=== PATIENT | female | born 1995 | race Caucasian/White ===

== ENCOUNTER 2023-04-04 16:49 | Outpatient (OUT) | payer OTHER, SELFPAY ==
[2023-04-04 17:13] LABS: Basophils Percent Auto 0.2 % (0.2-2.0); Eosinophils Absolute Auto 0.1 10^3/uL (0.0-0.7); Eosinophils Percent Auto 1.2 % (0.9-7.0); Hematocrit 39.5 % (36.0-48.0); Hemoglobin 13.6 g/dL (12.0-16.0); Immature Granulocytes Abs Auto 0.01 10^3/uL (0.00-0.03); Immature Granulocytes Pct Auto 0.2 % (0.0-0.5); Lymphocytes Absolute Auto 1.9 10^3/uL (1.2-3.8); Lymphocytes Percent Auto 31.3 % (20.5-60.0); Mean Corpuscular HGB Conc 34.4 g/dL (29.9-35.2); Mean Corpuscular Volume 92.9 fL (81.0-99.0); Monocytes Absolute Auto 0.3 10^3/uL (0.3-0.8); Monocytes Percent Auto 5.3 % (1.7-12.0); Neutrophils Absolute Auto 3.8 10^3/uL (1.4-6.5); Neutrophils Percent Auto 61.8 % (43.0-75.0); Platelet Count 204 10^3/uL (150-450); Red Blood Count 4.25 10^6/uL (4.20-5.40); Red Cell Distribution Width 12.3 % (11.0-15.0); White Blood Count 6.1 10^3/uL (4.0-11.0)
[2023-04-04 17:34] LABS: INR 0.97; Prothrombin Time 10.3 sec (9.0-11.6)
[2023-04-04 17:41] LABS: HCG Quantitative <1 mIU/mL; Thyroid Stimulating Hormone 2.377 uIU/mL (0.358-3.740)
[2023-04-04 17:46] LABS: Estimated Average Glucose 100 mg/dL; Glycohemoglobin A1C 5.1 % (4.5-6.2)
== END 2023-04-04 16:50 | disposition home or self-care (01) ==
PROVIDERS: PCP Nurse Practitioner; Visit Provider Physician Assistant
DX: Z12.4 Encounter for screening for malignant neoplasm of cervix (principal); R10.2 Pelvic and perineal pain
CPT/HCPCS: 36415; 83036; 84439; 84443; 84702; 85025; 85610; 85730; G0145

== ENCOUNTER 2023-04-04 20:54 | Outpatient (REF) | payer OTHER, SELFPAY ==
[2023-04-09 14:09] LABS: Age Gdln ACOG Testing Note (.); IGP, rfx Aptima HPV ASCU Note (.)
== END 2023-04-04 20:55 | disposition home or self-care (01) ==
LOC: LAB 20:54
PROVIDERS: PCP Nurse Practitioner; Visit Provider Physician Assistant
DX: Z12.4 Encounter for screening for malignant neoplasm of cervix (principal)
CPT/HCPCS: G0145

== ENCOUNTER 2024-04-13 21:25 | Outpatient (REF) | payer OTHER, SELFPAY ==
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
[2024-04-17 14:10] LABS: Age Gdln ACOG Testing Note (.); IGP, rfx Aptima HPV ASCU Note (.)
== END 2024-04-13 21:26 | disposition home or self-care (01) ==
LOC: LAB 21:25
PROVIDERS: PCP Nurse Practitioner; Visit Provider Physician Assistant
DX: Z01.419 Encounter for gynecological examination (general) (routine) without abnormal findings (principal)
CPT/HCPCS: 88175

== ENCOUNTER 2024-06-03 18:37 | Emergency (ER) | payer OTHER, SELFPAY ==
--- OUTSIDE RECORDS SUMMARY | 2024-06-03 18:51 | XMS_ITS | CCD ---
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 Comment on above: Performed By: #### P REGQNT, CMP #### [facility] [address] [place] [address] Dr. Aniyah Oliveira HCG RANGE SEE BELOW Normal [facility] Comment on above: Result Comment: 5-50 0.2-1 WEEK 50-500 1-2 WEEKS 100-5,000 2-3 WEEKS 500-10,000 3-4 WEEKS 1,000-50,000 4-5 WEEKS 10,000-100,000 5-6 WEEKS 15,000-200,000 6-8 WEEKS 10,000-100,000 2-3 MONTHS Performed By: #### P REGQNT, CMP #### [facility] [address] [place] [address] Dr. Aniyah Oliveira PROF 14(COMP METB)on 022 Albumin [Mass/Vol] 4.2 g/dL Normal 3.4-5.0 [facility] Comment on above: Performed By: #### P REGQNT, CMP #### [facility] [address] [place] [address] Dr. Aniyah Oliveira Albumin/Globulin [Mass ratio] 1.3 {ratio} Normal [facility] Comment on above: Performed By: #### P REGQNT, CMP #### [facility] [address] [address] [address] Aniyah Oliveira ALP [Catalytic activity/Vol] 32 U/L Critically low 46-116 [facility] Comment on above: Performed By: #### P REGQNT, CMP #### [facility] [address] [address] [address] Aniyah Oliveira ALT [Catalytic activity/Vol] 14 U/L Normal 14-59 [facility] Comment on above: Performed By: #### P REGQNT, CMP #### [facility] [address] [place] [address] Dr. Aniyah Oliveira Anion gap [Moles/Vol] 12.9 mmol/L Normal [facility] Comment on above: Performed By: #### P REGQNT, CMP #### [facility] [address] [place] [address] Dr. Aniyah Oliveira AST [Catalytic activity/Vol] 15 U/L Normal 15-37 [facility] Comment on above: Performed By: #### P REGQNT, CMP #### [facility] [address] [place] [address] Dr. Aniyah Oliveira Bilirubin [Mass/Vol] 0.3 mg/dL Normal 0.2-1.0 [facility] Comment on above: Performed By: #### P REGQNT, CMP #### [facility] [address] [place] [address] Dr. Aniyah Oliveira Calcium [Mass/Vol] 9.2 mg/dL Normal 8.5-10.1 [facility] Comment on above: Performed By: #### P REGQNT, CMP #### [facility] [address] [place] [address] Dr. Aniyah Oliveira Chloride [Moles/Vol] 102 mmol/L Normal 98-107 [facility] Comment on above: Performed By: #### P REGQNT, CMP #### [facility] [address] [address] [address] Aniyah Oliveira CO2 [Moles/Vol] 27.6 mmol/L Normal 21.0-32.0 [facility] Comment on above: Performed By: #### P REGQNT, CMP #### [facility] [address] [address] [address] Aniyah Oliveira Creatinine [Mass/Vol] 0.73 mg/dL Normal 0.55-1.02 [facility] Comment on above: Performed By: #### P REGQNT, CMP #### [facility] [address] [address] [address] Aniyah Oliveira EGFR-AF ETHIOPIAN >60 Normal >=60 [facility] Comment on above: Performed By: #### P REGQNT, CMP #### [facility] [address] [address] [address] Aniyah Oliveira EGFR-NON AF ETHIOPIAN >60 Normal >=60 [facility] Comment on above: Performed By: #### P REGQNT, CMP #### [facility] [address] [address] [address] Aniyah Oliveira Globulin (S) [Mass/Vol] 3.2 g/dL Normal [facility] Comment on above: Performed By: #### P REGQNT, CMP #### [facility] [address] [address] [address] Aniyah Oliveira Glucose [Mass/Vol] 82 mg/dL Normal 74-106 [facility] [place] [facility] Comment on above: Performed By: #### P REGQNT, CMP #### [facility] [address] [address] [address] Aniyah Oliveira Potassium [Moles/Vol] 3.5 mmol/L Normal 3.5-5.1 [facility] Comment on above: Performed By: #### P REGQNT, CMP #### [facility] [address] [address] [address] Aniyah Oliveira Protein [Mass/Vol] 7.4 g/dL Normal 6.4-8.2 [facility] [place] [facility] Comment on above: Performed By: #### P REGQNT, CMP #### [facility] [address] [address] [address] Aniyah Oliveira Sodium [Moles/Vol] 139 mmol/L Normal 136-145 [facility] Comment on above: Performed By: #### P REGQNT, CMP #### [facility] [address] [address] [address] Aniyah Oliveira Urea nitrogen [Mass/Vol] 7.0 mg/dL Normal 7.0-18.0 [facility] Comment on above: Performed By: #### P REGQNT, CMP #### [facility] [address] [address] [address] Aniyah Oliveira Urea nitrogen/Creatinin e [Mass ratio] 9.6 mg/mg Normal [facility] Comment on above: Performed By: #### P REGQNT, CMP #### [facility] [address] [place] [address] Dr. Aniyah Oliveira COVID/FLU RT-PCRon 2 SARS-CoV-2 (COVID-19) RNA CHITO+probe Ql (Unsp spec) Negative [employer] Other COVID/FLU RT-PCR Negative [employer] [facility] [employer] Other CBC W MANUAL DIFFon 04-18-20 22 ATYPICAL LYMPH # Normal [facility] Comment on above: Performed By: #### C ARCADIO #### [facility] [address] [place] [address] Dr. Aniyah Oliveira ATYPICAL LYMPH % Normal [facility] Comment on above: Performed By: #### C PARKERMAN #### [facility] [address] [place] [address] Dr. Aniyah Oliveira BAND # 0.1 103/ul Normal 0.0-0.3 [facility] Comment on above: Performed By: #### C ARCADIO #### [facility] [address] [place] [address] Dr. Aniyah Oliveira BAND % 1 % Normal 0-5 [facility] Comment on above: Performed By: #### C ARCADIO #### [facility] [address] [address] [address] Aniyah Oliveira BASOM # 0.00 103/ul Normal 0.00-0.10 [facility] Comment on above: Performed By: #### C BCRONALD #### [facility] [address] [place] [address] Dr. Aniyah Oliveira BASOM % 0.0 % Critically low 0.2-2.0 [facility] Comment on above: Performed By: #### C BCMAN #### [facility] [address] [place] [address] Dr. Aniyah Oliveira BLAST # Normal [facility] Comment on above: Performed By: #### C ARCADIO #### [facility] [address] [place] [address] Dr. Aniyah Oliveira BLAST % Normal [facility] Comment on above: Performed By: #### C ARCADIO #### [facility] [address] [place] [address] Dr. Aniyah Oliveira CORRECTED WBC Normal 4.0-11.0 [facility] Comment on above: Performed By: #### C ARCADIO #### [facility] [address] [place] [address] Dr. Aniyah Oliveira EOS # 0.00 103/ul Normal 0.00-0.70 [facility] Comment on above: Performed By: #### C ARCADIO #### [facility] [address] [place] [address] Dr. Aniyah Oliveira EOS% 0.0 % Critically low 0.9-7.0 [facility] Comment on above: Performed By: #### C BCRONALD #### [facility] [address] [place] [address] Dr. Aniyah Oliveira HCT 39.9 % Normal 36.0-48.0 [facility] Comment on above: Performed By: #### C BCRONALD #### [facility] [address] [place] [address] Dr. Aniyah Oliveira HGB 13.7 g/dl Normal 12.0-16.0 [facility] Comment on above: Performed By: #### C ARCADIO #### [facility] [address] [address] [address] Aniyah Oliveira LYMPHM # 0.71 103/ul Critically low 1.20-3.80 [facility] Comment on above: Performed By: #### C ARCADIO #### [facility] [address] [address] [address] Aniyah Oliveira LYMPHM% 11.0 % Critically low 20.5-60.0 [facility] Comment on above: Performed By: #### C ARCADIO #### [facility] [address] [address] [address] Aniyah Oliveira MCH 31.5 pg Normal 26.7-34.0 [facility] Comment on above: Performed By: #### C ARCADIO #### [facility] [address] [place] [address] Dr. Aniyah Oliveira MCHC 34.3 g/dl Normal 29.9-35.2 [facility] Comment on above: Performed By: #### C ARCADIO #### [facility] [address] [address] [address] Aniyah Oliveira MCV 91.7 fL Normal 81.0-99.0 [facility] Comment on above: Performed By: #### C ARCADIO #### [facility] [address] [place] [address] Dr. Aniyah Oliveira METAMYELOCYTE # Normal [facility] Comment on above: Performed By: #### C ARCADIO #### [facility] [address] [address] [address] Aniyah Oliveira METAMYELOCYTE % Normal [facility] Comment on above: Performed By: #### C ARCADIO #### [facility] [address] [address] [address] Aniyah Oliveira MONOM# 0.13 103/ul Critically low 0.30-0.80 [facility] Comment on above: Performed By: #### C ARCADIO #### [facility] [address] [address] [address] Aniyah Oliveira MONOM% 2.0 % Normal 1.7-12.0 [facility] Comment on above: Performed By: #### C ARCADIO #### [facility] [address] [place] [address] Dr. Aniyah Oliveira MPV 10.5 fL Normal 9.5-13.5 [facility] Comment on above: Performed By: #### C ARCADIO #### [facility] [address] [place] [address] Dr. Aniyah Oliveira MYELOCYTE # Normal [facility] Comment on above: Performed By: #### C ARCADIO #### [facility] [address] [place] [address] Dr. Aniyah Oliveira MYELOCYTE % Normal [facility] Comment on above: Performed By: #### C ARCADIO #### [facility] [address] [place] [address] Dr. Aniyah Oliveira NRBC Normal [facility] Comment on above: Performed By: #### C ARCADIO #### [facility] [address] [place] [address] Dr. Aniyah Oliveira PLT 204 103/ul Normal 150-450 [facility] Comment on above: Performed By: #### C ARCADIO #### [facility] [address] [place] [address] Dr. Aniyah Oliveira RBC 4.35 106/ul Normal 4.20-5.40 [facility] Comment on above: Performed By: #### C ARCADIO #### [facility] [address] [place] [address] Dr. Aniyah Oliveira RDW 12.1 % Normal 11.0-15.0 [facility] Comment on above: Performed By: #### C ARCADIO #### [facility] [address] [place] [address] Dr. Aniyah Oliveira SEG # 5.59 103/ul Normal 1.40-6.50 [facility] Comment on above: Performed By: #### C BCRONALD #### [facility] [address] [place] [address] Dr. Aniyah Oliveira SEG % 86.0 % Critically high 43.0-75.0 [facility] Comment on above: Performed By: #### C BCMAN #### [facility] [address] [place], [place] [address] Dr. Aniyah Oliveira WBC 6.5 103/ul Normal 4.0-11.0 [facility] Comment on above: Performed By: #### C BCMAN #### [facility] [address] [place], [place] [address] HEAD WO CONon [...] SANDRA YOUSSEF Date: 2022-04-18 14:39 Normal [facility] SARS-CoV-2 (COVID-19) RNA CHITO+probe Ql (Unsp spec) Not detected Normal NOT DETECTED [facility] Comment on above: Result Comment: When [...] for this test is supported by the [place] of Health and Human Service's declaration that [...] used). Performed By: #### C VDTB #### [facility] [address] [place] [address] Dr. Aniyah Oliveira ER URINE PROFILEon 2 Bilirubin Ql (U) Negative Normal NEGATIVE [facility] Comment on above: Performed By: #### E RUR #### [facility] [address] [place] [address] Dr. Aniyah Oliveira Clarity (U) CLEAR Normal CLEAR [facility] Comment on above: Performed By: #### E RUR #### [facility] [address] [place] [address] Dr. Aniyah Oliveira Color (U) LT. YELLOW Normal YELLOW [facility] Comment on above: Performed By: #### E RUR #### [facility] [address] [place] [address] Dr. Aniyah GALARZA A micrscopic examination will be performed if indicated. Normal [facility] Comment on above: Performed By: #### E RUR #### [facility] [address] [place] [address] Dr. Aniyah Oliveira Glucose Ql (U) Negative Normal NEGATIVE [facility] Comment on above: Performed By: #### E RUR #### [facility] [address] [place] [address] Dr. Aniyah Oliveira Hemoglobin Ql (U) Negative Normal NEGATIVE [facility] Comment on above: Performed By: #### E RUR #### [facility] [address] [place] [address] Dr. Aniyah Oliveira Ketones Ql (U) 15 mg/dl Abnormal NEGATIVE [facility] Comment on above: Performed By: #### E RUR #### [facility] [address] [place] [address] Dr. Aniyah Oliveira LEUKOCYTES Negative Normal NEGATIVE [facility] Comment on above: Performed By: #### E RUR #### [facility] [address] [place] [address] Dr. Aniyah Oliveira Nitrite Ql (U) Negative Normal NEGATIVE [facility] Comment on above: Performed By: #### E RUR #### [facility] [address] [place] [address] Dr. Aniyah Oliveira pH (U) 6.0 [pH] Normal 5-9 [facility] Comment on above: Performed By: #### E RUR #### [facility] [address] [place] [address] Dr. Aniyah Oliveira SPEC GRAVITY 1.005 Normal 1.005-<=1.025 [facility] Comment on above: Performed By: #### E RUR #### [facility] [address] [place] [address] Dr. Aniyah Oliveira UA PROTEIN Negative Normal NEGATIVE/ TRACE [facility] Comment on above: Performed By: #### E RUR #### [facility] [address] [place] [address] Dr. Aniyah Oliveira UR MICRO IND NOT INDICATED Normal [facility] Comment on above: Performed By: #### E RUR #### [facility] [address] [place] [address] Dr. Aniyah Oliveira Urobilinogen Qn (U) 0.2 {Yovani'U}/dL Normal 0.2 - 1.0 [facility] Comment on above: Performed By: #### E RUR #### [facility] [address] [place] [address] Dr. Aniyah Oliveira PREG HCG QUALon 04-18-2022 , QUAL Negative Normal NEGATIVE [facility] Comment on above: Performed By: #### P REG #### [facility] [address] [place] [address] Dr. Aniyah Oliveira PROF 14(COMP METB)on 022 Albumin [Mass/Vol] 4.2 g/dL Normal 3.4-5.0 [facility] Comment on above: Performed By: #### C MP #### [facility] [address] [place] [address] Dr. Aniyah Oliveira Albumin/Globulin [Mass ratio] 1.3 {ratio} Normal [facility] Comment on above: Performed By: #### C MP #### [facility] [address] [address] [address] Aniyah Oliveira ALP [Catalytic activity/Vol] 35 U/L Critically low 46-116 [facility] Comment on above: Performed By: #### C MP #### [facility] [address] [address] [address] Aniyah Oliveira ALT [Catalytic activity/Vol] 18 U/L Normal 14-59 [facility] Comment on above: Performed By: #### C MP #### [facility] [address] [address] [address] Aniyah Oliveira Anion gap [Moles/Vol] 13.3 mmol/L Normal [facility] Comment on above: Performed By: #### C MP #### [facility] [address] [place] [address] Dr. Aniyah Oliveira AST [Catalytic activity/Vol] 19 U/L Normal 15-37 [facility] Comment on above: Performed By: #### C MP #### [facility] [address] [place] [address] Dr. Aniyah Oliveira Bilirubin [Mass/Vol] 0.3 mg/dL Normal 0.2-1.0 [facility] Comment on above: Performed By: #### C MP #### [facility] [address] [place] [address] Dr. Aniyah Oliveira Calcium [Mass/Vol] 9.5 mg/dL Normal 8.5-10.1 [facility] Comment on above: Performed By: #### C MP #### [facility] [address] [place] [address] Dr. Aniyah Oliveira Chloride [Moles/Vol] 106 mmol/L Normal 98-107 [facility] Comment on above: Performed By: #### C MP #### [facility] [address] [place] [address] Dr. Aniyah Oliveira CO2 [Moles/Vol] 23.6 mmol/L Normal 21.0-32.0 [facility] Comment on above: Performed By: #### C MP #### [facility] [address] [address] [address] Aniyah Olvieira Creatinine [Mass/Vol] 0.66 mg/dL Normal 0.55-1.02 [facility] Comment on above: Performed By: #### C MP #### [facility] [address] [address] [address] Aniyah Oliveira EGFR-AF ETHIOPIAN >60 Normal >=60 [facility] Comment on above: Performed By: #### C MP #### [facility] [address] [address] [address] Aniyah Oliveira EGFR-NON AF ETHIOPIAN >60 Normal >=60 [facility] Comment on above: Performed By: #### C MP #### [facility] [address] [place] [address] Dr. Aniyah Oliveira Globulin (S) [Mass/Vol] 3.2 g/dL Normal [facility] Comment on above: Performed By: #### C MP #### [facility] [address] [address] [address] Aniyah Oliveira Glucose [Mass/Vol] 99 mg/dL Normal 74-106 [facility] [place] [facility] Comment on above: Performed By: #### C MP #### [facility] [address] [place] [address] Dr. Aniyah Oliveira Potassium [Moles/Vol] 3.9 mmol/L Normal 3.5-5.1 [facility] Comment on above: Performed By: #### C MP #### [facility] [address] [address] [address] Aniyah Oliveira Protein [Mass/Vol] 7.4 g/dL Normal 6.4-8.2 [facility] [place] [facility] Comment on above: Performed By: #### C MP #### [facility] [address] [place] [address] Dr. Aniyah Oliveira Sodium [Moles/Vol] 139 mmol/L Normal 136-145 [facility] [place] [facility] Comment on above: Performed By: #### C MP #### [facility] [address] [place] [address] Dr. Aniyah Oliveira Urea nitrogen [Mass/Vol] 4.0 mg/dL Critically low 7.0-18.0 [facility] Comment on above: Performed By: #### C MP #### [facility] [address] [place] [address] Dr. Aniyah Oliveira Urea nitrogen/Creatinin e [Mass ratio] 6.1 mg/mg Normal [facility] Comment on above: Performed By: #### C MP #### [facility] [address] [address] [address] Aniyah Oliveira XR CHEST 2 Von [...] by: MARITO GUERRA Date: 2022-04-18 14:33 Normal [facility] XR CSPINE 2_3 VIEWSon 2021 XR [...] by: MARITO GUERRA Date: 2022-04-18 14:36 Normal [facility] PAP ACOG PANEL 3: 21 to 29on 01-25-2022 . . Normal [facility] Comment on above: Result Comment: Perf ormed at: WB Performed By: #### [id number] #### [facility] [address] [place] [address] Dr. Aniyah Oliveira Age Gdln ACOG Testing 21-29 Normal [facility] Comment on above: Performed By: #### [id number] #### [facility] [address] [place] [address] Dr. Aniyah Oliveira Chlamydia, Nuc. Acid Amp Negative Normal Negative [facility] Comment on above: Result Comment: Perf ormed at: =G Performed By: #### [id number] #### [facility] [address] [place] [address] Dr. Aniyah Oliveira DIAGNOSIS: Comment Normal [facility] Comment on above: Result Comment: NEGA TIVE FOR INTRAEPITHELIAL LESION OR MALIGNANCY. Performed at: WB Performed By: #### [id number] #### [facility] [address] [place] [address] Dr. Aniyah Oliveira Gonococcus, Nuc. Acid Amp Negative Normal Negative [facility] Comment on above: Result Comment: Perf ormed at: =G Performed By: #### [id number] #### [facility] [address] [place] [address] Dr. Aniyah Oliveira Methodology: Comment Normal [facility] Comment on above: Result Comment: This liquid based ThinPrep(R) pap test was screened with the use of an image guided system. Performed at: WB Performed By: #### [id number] #### [facility] [address] [place] [address] Dr. Aniyah Oliveira Note: Comment Normal [facility] Comment on above: Result Comment: The Pap smear is a screening test designed to aid in the detection of premalignant and malignant conditions of the uterine cervix. It is not a diagnostic procedure and should not be used as the sole means of detecting cervical cancer. Both false-positive and false-negative reports do occur. . Performed at: WB Performed By: #### [id number] #### [facility] [address] [place] [address] Dr. Aniyah Oliveira Performed by: Comment Normal [facility] Comment on above: Result Comment: Cherelle Crowder, Passenger T[employer] Builder (ASCP) Performed at: WB Performed By: #### [id number] #### [facility] [address] [place] [address] Dr. Aniyah Oliveira Reflex Criteria: Comment Normal [facility] Comment on above: Result Comment: The HPV DNA reflex criteria were not met with this specimen result therefore, no HPV testing was performed. . Performed at: WB Performed By: #### [id number] #### [facility] [address] [place] [address] Dr. Aniyah Oliveira Specimen adequacy: Comment Normal [facility] Comment on above: Result Comment: Sati sfactory for evaluation. Endocervical and/or squamous metaplastic cells (endocervical component) are present. Performed at: WB Performed By: #### [id number] #### [facility] [address] [place] [address] Dr. Aniyah Oliveira VAGINITIS/VAGINOSIS DNA PROB Rehan 01-24-2022 Dang species Negative Normal Negative [facility] Comment on above: Performed By: #### V AGINT #### [facility] [address] [place] [address] Dr. Aniyah Oliveira Gardnerella vaginalis Negative Normal Negative [facility] Comment on above: Performed By: #### V AGINT #### [facility] [address] [place] [address] Dr. Aniyah Oliveira Trichomonas vaginalis Negative Normal Negative [facility] Comment on above: Performed By: #### V AGINT #### [facility] [address] [place] [address] Dr. Aniyah Oliveira Vital Signs Date Time Vital Sign Value Performing Clinician Facility 08-26-2023 15:40-0500 Body mass index (BMI) [Ratio] 24.27 kg/m2 Rebel Monkey Work Phone: [facility] 08-26-2023 15:40-0500 Body weight 62.14 kg [employer] DO Work Phone: [facility] 08-26-2023 15:40-0500 Diastolic blood pressure 68 mm[Hg] Rebel Monkey Work Phone: [facility] 08-26-2023 15:40-0500 Systolic blood pressure 110 mm[Hg] Rebel Monkey Work Phone: [facility] 05-10-2022 11:20-0400 Body height 160.02 cm Nenita Lee Other [facility] Other 05-10-2022 11:20-0400 Body mass index (BMI) [Ratio] 20.19 kg/m2 Nenita Lee Other [facility] Other 05-10-2022 11:20-0400 Body temperature 98 [degF] Nenita Lee Other [facility] Other 05-10-2022 11:20-0400 Body weight 51.71 kg Nenita Lee Other [facility] Other 05-10-2022 11:20-0400 Respiratory rate 18 /min Nenita Lee Other [facility] Other 05-10-2022 11:20-0400 SaO2% (BldA) [Mass fraction] 99 % Nenita Lee Other [facility] Other Encounters Encounter Date Encounter Type Care Provider Facility Start: 04-15-2024 End: 04-15-2024 ambulatory BIBIANA AICHHOLZ Not Available Start: 04-13-2024 End: 04-13-2024 ambulatory NESSA PIEDRA Not Available Start: 04-07-2024 End: 04-07-2024 [facility] Start: 10-14-2023 End: 10-14-2023 ambulatory BIBIANA AICHHOLZ Not Available Start: 08-26-2023 End: 08-26-2023 ambulatory ARON MORIAH Not Available Start: 08-26-2023 End: 08-26-2023 Office outpatient visit 10 minutes Aron Moriah DO Work Phone: [facility] Comment on above: Intrauterine device surveillance Start: 07-01-2023 End: 07-01-2023 ambulatory ARON MORIAH Not Available Start: 01-23-2023 End: 01-24-2023 ambulatory Glendy CELIS Facility:[facility] Start: 01-23-2023 End: 01-23-2023 Patient encounter procedure Glendy CELIS [facility] Start: 12-06-2022 ambulatory Glendy CELIS Facility: [facility] Start: 09-18-2022 End: 09-19-[address] ARON MAJOR . Facility:[facility] Start: 08-20-2022 Encounter for preprocedural laboratory examination CHANTAL Lopez [facility] Start: 08-17-2022 End: 08-17-2022 ambulatory DESTINEE SALGUERO POLLY Facility:[facility] Start: 08-15-2022 End: 08-16-2022 ambulatory DESTINEE SALGUERO POLLY Facility:[facility] Start: 08-15-2022 End: 08-16-2022 Encounter for preprocedural laboratory examination DESTINEE SALGUERO POLLY Facility:[facility] Start: 07-27-2022 End: 07-28-2022 ambulatory BLUM H FAWWAD Facility:[facility] Start: 07-17-2022 End: 07-17-2022 ambulatory BLUM H FAWWAD Facility:[facility] Start: 07-11-2022 End: 07-12-2022 ambulatory BLUM H FAWWAD Facility:[facility] Start: 05-10-2022 End: 05-10-2022 ambulatory Nenita Lee Other [facility] Other Start: 05-10-2022 Office outpatient vi sit 25 minutes Nenita Lee [facility] Start: 04-18-2022 End: 04-18-2022 ambulatory ROBINSON DINH . Facility:[facility] Start: 01-22-2022 End: 01-22-2022 ambulatory DESTINEE SALGUERO EVARISTOEverKASEY Facility:[facility] Procedures Date Procedure Procedure Detail Performing Clinician Start: 08-17-2022 Colonoscopy Glendy Monterroso Plan of Treatment Date Care Activity Detail Author Start: 04-13-2024 End: 04-13-2024 Patient encounter procedure 04/13/2024 4:00 PM EDT Office Visit [facility] [address] [address] Nessa Piedra PA [address] [place] [address] [facility] Start: 03-29-2023 Influenza vaccination Influenza Vacc ine (#1) [facility] Immunizations Immunization Date Immunization Notes Care Provider Fa cility 07-16-2019 tetanus toxoid, redu carl diphtheria toxoid, and acellular pertussis vaccine, adsorbed Pike SALAM [facility] 05-06-2012 hepatitis A vaccine, unspecified formulation Pike SALAM [facility] 05-06-2012 influenza virus vaccine, unspecified formulation Aron Major DO Work Phone: [facility] 11-23-2011 HPV, unspecified formulation Pike SALAM [facility] 05-23-2011 HPV, unspecified formulation Pike SALAM [facility] 12-14-2010 hepatitis A vaccine, unspecified formulation Pike SALAM [facility] 12-14-2010 HPV, unspecified formulation Pike SALAM [facility] 12-14-2010 meningococcal ACWY vaccine, unspecified formulation Pike SALAM [facility] 12-14-2010 varicella virus vaccine Mahe r SALAM [facility] 08-22-2009 tetanus toxoid, redu carl diphtheria toxoid, and acellular pertussis vaccine, adsorbed Pike SALAM [facility] 03-12-2000 DTaP, unspecified formulation Pike SALAM [facility] 03-12-2000 measles, mumps and rubella virus vaccine Pike SALAM [facility] 03-12-2000 poliovirus vaccine, unspecified formulation Pike SALAM [facility] 03-12-2000 varicella virus vaccine Mahe r SALAM [facility] 02-11-1996 measles, mumps and rubella virus vaccine Pike SALAM [facility] 06-11-1995 hepatitis B vaccine, pediatric or pediatric/adolescent dosage Pike SALAM [facility] 06-11-1995 Hib, unspecified formulation Pike SALAM [facility] 03-06-1995 Hib, unspecified formulation Pike SALAM [facility] 1994 hepatitis B vaccine, pediatric or pediatric/adolescent dosage Pike SALAM [facility] 1994 Hib, unspecified formulation Pike SALAM [facility] 1994 hepatitis B vaccine, pediatric or pediatric/adolescent dosage Pike SALAM [facility] Payers Date Payer Category Payer Unknown [employer] [id number] 2022-Present [address] [address] [place] [address] [id number] 1994 Unknown [id number] 3 1994 Unknown [id number] [id number] 3 1994 Unknown [id number] [id number] 3 1994 Unknown [id number] 2.16.840.1.110798.3.579.2.59 3 1994 Unknown [id number] [id number] 3 1994 Unknown [id number] [id number] 3 1994 Unknown [id number] [id number] 3 1994 Unknown [id number] 2.16.840.1.675365.3.579.2.59 3 1994 Unknown [id number] 2.16.840.1.953107.3.579.2.72 7 1994 Unknown [id number] 2.16.840.1.410822.3.579.2.17 3 1994 Unknown [id number] 2.16.840.1.798660.3.579.2.12 59 1994 Unknown [id number] 2.16.840.1.965904.3.579.2.12 59 1994 Unknown [id number] 2.16.840.1.184624.3.579.2.12 59 1994 Unknown [id number] 2.16.840.1.948701.3.579.2.12 59 1994 Unknown [id number] 2.16.840.1.293934.3.579.2.12 59 1959 Unknown [id number] [id number] 1959 Unknown [id number] Unknown [id number] Social History Date Type Detail Facility Unknown if ever smoked [facility] Other Start: 08-26-2023 Sex Assigned At F [facility] Tobacco smoking status No Smoking Status Entered [facility] Start: 01-01-2023 Tobacco smoking status NHIS Never smoked tobacco [facility] Start: 01-01-2023 Tobacco use and exposure Smokeless tobacco non-user [facility] Start: 08-26-2023 Alcohol intake Lifetime non-d frances (finding) [facility] Start: 08-26-2023 History of Social function [facility] Start: 01-01-2023 Alcohol Comment caffeine: 1-2 cups per day [facility] Start: 1995 Sex Assigned At Not on file [facility] History of Present illness Narrative 08-26-2023 Muna Vazquez, HEREDITARY CANCER PROGRAM COORDINATOR - 08/26/2023 3:00 PM EST Note Date [...] nursing note reviewed. Exam conducted with a automotive glass mechanic present. Vitals: Estimated body mass index is [...] Aron Major DO documented in this encounter [facility] Evaluation note 05-10-2022 Note Date & [...] treatment. Education handout given on gastro diet [facility] [employer] Other Evaluation + Plan note Note Date & Type Note Facility Evaluation + Plan note No data available for this section [facility] Evaluation note Note Date & Type Note Facility Evaluation note Diagnosis Intrauterine device surveillance documented in this encounter [facility] History general Narrative - Reported Note Date & Type Note Facility History general Narrative - Reported Type Medical History Recurrent UTI's Medical History Depression Surgical History oral surgery [facility] [employer] Other Hospital Discharge instructions Note Date & Type Note Facility Hospital Discharge instructions No data available for this section [facility] Progress note Note Date & Type Note Facility Progress note No data available for this section [facility] Summary Purpose Family History No [...] and content) DATE CREATED AUTHOR 10/24/2022 [facility] DATE CREATED AUTHOR AUTHOR'S ORGANIZ ATION 01/24/2023 [facility] DATE CREATED AUTHOR AUTHOR'S ORGANIZ ATION 04/13/2024 [facility] DATE CREATED AUTHOR AUTHOR'S ORGANIZ ATION 04/18/2024 [facility] EPIC Patient Care team informatio n (unrecognized section and content) Information Services Assistant Relationship Specialty Start Date End Date Zac Jarquin MD PCP - General Family Medicine 02/12/23 Bibiana Matias NP [address] [place] [address] Referring Physician Nurse Practitioner 02/12/23 FOR RECORDS [...] BE BASED ON THE PRIMARY CLINICAL RECORDS. [facility] provides no warranty or guarantee of the accuracy or completeness of information in this document.
[2024-06-03 19:07] VITALS: BP 140/73; PULSE 60; TEMP 36.9; O2SAT 98; BMI 23.0
--- NOTE | 2024-06-03 19:20 | ED_ITS ---
<Statement entered by Marcio Perez MD - 06/04/24 01:22> This documentation has been reviewed and approved. Chart was sent to my inbox for administrative and group management purposes. I was the attending physicians working during the patients hospital course. The patient was seen and managed independently by the MLP. I did not personally see or evaluate this patient, nor was I involved in the patient medical decision making process or plans of care. Pt was dispositioned by the MLP with complete independence and I was not involved in planning. I was available for c onsultation should the MLP request during this patients ED stay. HPI HPI - General Adult General Chief complaint: Nausea/Vomiting/Diarrhea Stated complaint: DEHYDRATION Time Seen by Provider: 06/03/24 18:38 Source: patient Mode of arrival: walk-in Limitations: no limitations History of Present Illness HPI narrative: Patient is a 28-year-old female who presents to the emergency department for evaluation of possible dehydration. She was referred to the ER by her primary care provider. She has had nasal congestion, cough, vomiting, diarrhea since Saturday. She states she was tested for COVID in the PCP office and it was negative. She is not concerned for . She has had no objective fevers. She states she frequently has blood in her stool intermittently, she denies any new or worsening blood in her stool. She has not had any urinary symptoms. She reports decreased urination over the last day. No medications taken prior to arrival. She was not prescribed any medication. Related Data Home Medications ?Medication ?Instructions ?Recorded ?Confirmed lurasidone 60 mg tablet (Latuda) 60 mg PO DAILY 06/03/24 06/03/24 vilazodone 20 mg tablet 20 mg PO DAILY 06/03/24 06/03/24 Previous Rx's ?Medication ?Instructions ?Recorded qzjuzowffqraqfb-tuomehpwoenkzsm-WU 10 ml PO Q6H PRN cold symptoms 06/03/24 2 mg-30 mg-10 mg/5 mL oral syrup #200 mL (Bromfed DM) ondansetron 4 mg disintegrating 4 mg PO Q6H PRN nausea and 06/03/24 tablet vomiting #12 tabs Allergies Allergy/AdvReac Type Severity Reaction Status Date / Time sulfamethoxazole (From AdvReac Intermediate Vomiting Verified 06/03/24 19:12 Bactrim) trimethoprim (From Bactrim) AdvReac Intermediate Vomiting Verified 06/03/24 19:12 Opioid HPI Opioid Management Most Recent Opioid Data: Last Pain Scale 5 06/03/24 19:19 06/03/24 Last ED Pain Assessment 06/03/24 19:19 Review of Systems ROS Constitutional Denies: fever or chills Ears, nose, mouth, and throat Reports: nasal congestion; Denies: throat pain Cardiovascular Denies: chest pain Respiratory Reports: cough; Denies: shortness of breath Gastrointestinal Reports: abdominal pain, nausea, vomiting and diarrhea Musculoskeletal Reports: back pain; Denies: neck pain Integumentary/Breast Denies: rash Neurological Denies: numbness in extremities or weakness in extremities Hematologic/Lymphatic Denies: easy bruising or easy bleeding PFSH PFSH Social History Little interest or pleasure in doing things: not at all Feeling down, depressed, or hopeless: not at all Exam Constitutional Vital Signs, click to edit/add: Last Vital Signs Temp 98.5 F 06/03/24 19:07 Pulse 60 06/03/24 19:07 Resp 16 06/03/24 19:07 BP 140/73 06/03/24 19:07 Pulse Ox 98 06/03/24 19:07 O2 Del Method Room Air 06/03/24 19:07 Course Vital Signs Vital signs: Vital Signs Temperature 98.5 F 06/03/24 19:07 Pulse Rate 60 06/03/24 19:07 Respiratory Rate 16 06/03/24 19:07 Blood Pressure 140/73 06/03/24 19:07 Pulse Oximetry 98 06/03/24 19:07 Oxygen Delivery Method Room Air 06/03/24 19:07 Temperature 98.5 F 06/03/24 19:07 Pulse Rate 60 06/03/24 19:07 Respiratory Rate 16 06/03/24 19:07 Blood Pressure 140/73 06/03/24 19:07 Pulse Oximetry 98 06/03/24 19:07 Oxygen Delivery Method Room Air 06/03/24 19:07 Medical Decision Making MDM Narrative Medical decision making narrative: Patient with ketones in urine, no other acute lab abnormalities. Patient hemodynamically stable with normal vital signs. No episodes of emesis in the emergency department. Patient will be discharged home with Zofran and Bromfed- DM. Follow-up with PCP and return to the ER if symptoms change or worsen. SUPERVISED APC VISIT, PHYSICIAN ATTESTATION: Based on the medical record the care appears appropriate. ? Medical Records Medical records reviewed: Yes I reviewed the patient's medical records Lab Data Labs: Lab Results 06/03/24 06/03/24 Range/Units 19:17 19:26 WBC 7.6 (4.0-11.0) 10^3/uL RBC 4.63 (4.20-5.40) 10^6/uL Hgb 15.0 (12.0-16.0) g/dL Hct 42.9 (36.0-48.0) % MCV 92.7 (81.0-99.0) fL MCH 32.4 (26.7-34.0) pg MCHC 35.0 (29.9-35.2) g/dL RDW 12.0 (11.0-15.0) % Plt Count 217 (150-450) 10^3/uL MPV 10.4 (9.5-13.5) fL Neut % (Auto) 58.1 (43.0-75.0) % Lymph % (Auto) 34.0 (20.5-60.0) % Pickett % (Auto) 6.2 (1.7-12.0) % Eos % (Auto) 1.3 (0.9-7.0) % Baso % (Auto) 0.3 (0.2-2.0) % Neut # (Auto) 4.4 (1.4-6.5) 10^3/uL Lymph # (Auto) 2.6 (1.2-3.8) 10^3/uL [place]ett # (Auto) 0.5 (0.3-0.8) 10^3/uL Eos # (Auto) 0.1 (0.0-0.7) 10^3/uL Baso # (Auto) 0.0 (0.0-0.1) 10^3/uL Abs Immat Gran (auto) 0.01 (0.00-0.03) 10^3/uL Imm/Tot Granulo (auto) 0.1 (0.0-0.5) % Sodium 139 (136-145) mmol/L Potassium 3.6 (3.5-5.1) mmol/L Chloride 101 (98-107) mmol/L Carbon Dioxide 26.5 (21.0-32.0) mmol/L Anion Gap 15.1 BUN 7.0 (7.0-18.0) mg/dL Creatinine 0.91 (0.55-1.02) mg/dL Est GFR ( Amer) >60 (>=60 mL/min/1.73m^2) Est GFR (Non-Af Amer) >60 (>=60 mL/min/1.73m^2) BUN/Creatinine Ratio 7.7 Glucose 97 (74-106) mg/dL Calcium 9.7 (8.5-10.1) mg/dL Total Bilirubin 0.6 (0.2-1.0) mg/dL AST 16 (15-37) U/L ALT 11 L (14-59) U/L Alkaline Phosphatase 49 (46-116) U/L Total Protein 7.7 (6.4-8.2) g/dL Albumin 4.5 (3.4-5.0) g/dL Globulin 3.2 g/dL Albumin/Globulin Ratio 1.4 Lipase 30.0 (16.0-77.0) U/L Urine Color Lt. yellow (YELLOW) Urine Clarity Clear (CLEAR) Urine pH 6.0 (5.0-9.0) Ur Specific [place] 1.020 (1.005-1.025) Urine Protein Negative (NEG/TRACE) mg/dL Urine Glucose (UA) Negative (NEGATIVE) mg/dL Urine Ketones 40 A (NEGATIVE) mg/dL Urine Occult Blood Negative (NEGATIVE) Urine Nitrite Negative (NEGATIVE) Urine Bilirubin Negative (NEGATIVE) Urine Urobilinogen 0.2 (0.2-1.0) EU/dL Ur Leukocyte Esterase Negative (NEGATIVE) Discharge Plan Discharge Chief Complaint: Nausea/Vomiting/Diarrhea Clinical Impression: Upper respiratory infection, Vomiting and diarrhea Patient Disposition: Home, Self-Care Time of Disposition Decision: 19:57 Condition: Good Prescriptions / Home Meds: New ryebeyeyjyirxct-zrwxbyxqw-UV [Bromfed DM] 2-30-10 mg/5 mL syrup 10 ml PO Q6H PRN (Reason: cold symptoms) Qty: 200 0RF ondansetron 4 mg tablet,disintegrating 4 mg PO Q6H PRN (Reason: nausea and vomiting) Qty: 12 0RF No Action vilazodone 20 mg tablet 20 mg PO DAILY lurasidone [Latuda] 60 mg tablet 60 mg PO DAILY Rx Instructions: must administer with food (at least 350 calories) Print Language: Amharic Instructions: Viral Syndrome (ED) Referrals: Bibiana Matias LOW ALTITUDE AIR DEFENSE OFFICER [Primary Care Provider] - 1 week
[2024-06-03 19:30] LABS: Basophils Percent Auto 0.3 % (0.2-2.0); Eosinophils Absolute Auto 0.1 10^3/uL (0.0-0.7); Eosinophils Percent Auto 1.3 % (0.9-7.0); Hematocrit 42.9 % (36.0-48.0); Immature Granulocytes Abs Auto 0.01 10^3/uL (0.00-0.03); Immature Granulocytes Pct Auto 0.1 % (0.0-0.5); Lymphocytes Absolute Auto 2.6 10^3/uL (1.2-3.8); Mean Corpuscular Hemoglobin 32.4 pg (26.7-34.0); Mean Corpuscular Volume 92.7 fL (81.0-99.0); Mean Platelet Volume 10.4 fL (9.5-13.5); Monocytes Absolute Auto 0.5 10^3/uL (0.3-0.8); Monocytes Percent Auto 6.2 % (1.7-12.0); Neutrophils Absolute Auto 4.4 10^3/uL (1.4-6.5); Neutrophils Percent Auto 58.1 % (43.0-75.0); Platelet Count 217 10^3/uL (150-450); Red Blood Count 4.63 10^6/uL (4.20-5.40); White Blood Count 7.6 10^3/uL (4.0-11.0)
[2024-06-03 19:31] LABS: Bilirubin Urine NEGATIVE (NEGATIVE); Blood Urine NEGATIVE (NEGATIVE); Clarity Urine CLEAR (CLEAR); Color Urine LT. YELLOW (YELLOW); Glucose Urine UA NEGATIVE (NEGATIVE); Ketones Urine 40 mg/dL (NEGATIVE); Leukocyte Esterase Urine NEGATIVE (NEGATIVE); Nitrite Urine NEGATIVE (NEGATIVE); Protein Urine NEGATIVE (NEG/TRACE); Urobilinogen Urine 0.2 EU/dL (0.2-1.0)
[2024-06-03 19:32] LABS: Urine Microscopic Indicated NO
[2024-06-03] MEDS: ONDANSETRON PF 4 MG/2 ML VIAL IV (19:37)
[2024-06-03] MEDS: 0.9 % SODIUM CHLORIDE 1,000 ML 1000 ML IV (19:37)
[2024-06-03 19:43] LABS: Alanine Aminotransferase 11 U/L (14-59); Albumin Globulin Ratio 1.4; Albumin Level 4.5 g/dL (3.4-5.0); Alkaline Phosphatase 49 U/L (46-116); Anion Gap 15.1; Aspartate Amino Transferase 16 U/L (15-37); BUN Creatinine Ratio 7.7; Bilirubin Total 0.6 mg/dL (0.2-1.0); Calcium 9.7 mg/dL (8.5-10.1); Carbon Dioxide 26.5 mmol/L (21.0-32.0); Chloride 101 mmol/L (98-107); Estimated GFR (African America >60 (>=60 mL/min/1.73m^2); Estimated GFR (Non-African Ame >60 (>=60 mL/min/1.73m^2); Globulin 3.2 g/dL; Glucose 97 mg/dL (74-106); Potassium 3.6 mmol/L (3.5-5.1); Sodium 139 mmol/L (136-145); Total Protein 7.7 g/dL (6.4-8.2)
[2024-06-03 20:16] VITALS: BP 107/69; PULSE 58; O2SAT 100
== END 2024-06-03 20:21 | disposition home or self-care (01) ==
PROVIDERS: Physician Assistant; Emergency Provider Emergency Medicine; PCP Nurse Practitioner
DX: R11.10 Vomiting, unspecified (principal); R19.7 Diarrhea, unspecified; J06.9 Acute upper respiratory infection, unspecified
CPT/HCPCS: 36415; 80053; 81003; 83690; 85025; 96361; 96374; 99285; J2405

== ENCOUNTER 2025-03-08 15:04 | Outpatient (OUT) | payer OTHER, SELFPAY ==
--- OUTSIDE RECORDS SUMMARY | 2024-05-13 11:30 | XMS_ITS ---
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 Name Role Phone Steve Crowder Primary Care Provider REASON FOR VISIT 1 month F/U virtual Doximity; PPW DUE & NEED PAYMENT Medications Medication SIG (Take, Route, Frequency, Duration) Notes Start Date End Date Status QUEtiapine Fumarate 25 MG 1 tablet at bedtime Orally Once a day; Duration: 30 day(s) 07/16/2023 Not-Taking Jolessa 0.15-0.03 MG 1 tablet Orally Once a day Not-Taking Sertraline HCl 50 MG 1 tablet Orally Once a day Not-Taking Propranolol HCl 40 MG 1 tablet Orally twice a day (bid) as needed (prn); Duration: 30 day(s) 05/27/2023 Active Lurasidone HCl 60 MG 1 tablet in the evening with food Orally Once a day; Duration: 30 days 05/27/2023 Active Vilazodone HCl 10 MG 1 tablet with food Orally Once a day; Duration: 30 days Take with 20 mg tablet for 30 mg total 04/16/2024 Active Vilazodone HCl 20 MG 1.5 tablets with food Orally Once a day; Duration: 30 days 01/21/2024 Active hydrOXYzine Pamoate 25 MG 1 capsule Orally three times a day (tid) as needed (prn); Duration: 30 days 05/27/2023 Not-Taking Encounters Encounter Location Date Provider Diagnosis [address] [place] [address] 2023 Steve Crowder Plan Of Treatment No Information Progress Notes * PRATIK CORONELDOB:[birth year] (29 yo F)Acc No.[id number]:05/13/2024 Behavioral Health Patient: PRATIK EUBANKS Provider: JANEL Wong :1995 A ge:28 Y S ex:Female Date:05/13/2024 Address:[address] [place] [address], [id number] Subjective: * Chief Complaints: * 1 . 1 month F/U virtual Doximity; PPW DUE & NEED PAYMENT. * Medical History: * Medications: T aking Propranolol HCl 40 MG Tablet 1 tablet Orally twice a day (bid) as needed (prn) , Taking Lurasidone HCl 60 MG Tablet 1 tablet in the evening with food Orally Once a day , Taking Vilazodone HCl 10 MG Tablet 1 tablet with food Orally Once a day , Notes to Pharmacist: Take with 20 mg tablet for 30 mg total, Taking Vilazodone HCl 20 MG Tablet 1.5 tablets with food Orally Once a day , Not-Taking/PRN hydrOXYzine Pamoate 25 MG Capsule 1 capsule Orally three times a day (tid) as needed (prn) , Not-Taking/PRN QUEtiapine Fumarate 25 MG Tablet 1 tablet at bedtime Orally Once a day , Not-Taking/PRN Jolessa 0.15-0.03 MG Tablet 1 tablet Orally Once a day , Not-Taking/PRN Sertraline HCl 50 MG Tablet 1 tablet Orally Once a day Objective: * Vitals: Assessment: Plan: * Treatment: * Images: * Electronic signature of JANEL Neely on 03/08/2025 at 11:35 AM EDT Sign off status: Pending * Provider: JANEL Wong Date: Generated for Rohit patel/Jami/Иван on: 03/08/2025 11:35 AM EDT
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
--- OUTSIDE RECORDS SUMMARY | 2025-03-08 15:09 | XMS_ITS | Clinical Summary ---
Author Organization [facility] Address [id number] [address] [place] [address] Care Team Providers Care Dough Brake Machine Operator Name Role Phone BienvenidocaronBibiana madsen APRN-COMMUNITY SERVICES COORDINATOR Primary Care Provider Allergies Active Allergy Reactions Criticality Noted Date Comments Sulfamethoxazole-Trimethoprim 2016 Medications norgestimate-eth inyl estradiol (ORTHO-CYCLEN) 0.25-35 mg-mcg per tablet Take 1 tablet by mouth daily. Active buPROPion XL (WELLBUTRIN XL) 300 mg 24 hr tablet Take 300 mg by mouth daily. Active Active Problems No known active problems Immunizations Immunization Administration Dates Next Due Tdap 07/16/2019 Social History Tobacco Use Types Packs/Day Years Used Date Smoking Tobacco: Never Smokeless Tobacco: Never Alcohol Use Standard Drinks/Week Comments Yes 0 (1 standard drink = 0.6 oz pur e alcohol) Childcare Answer Date Recorded Childcare Unknown 01/07/2019 Employment Answer Date Recorded Employment Unknown 01/07/2019 Purpose - Life Answer Date Recorded Purpose and direction in life Unknown Comments Unknown Sex and Gender Information Value Date Recorded Sex Assigned at Not on file Legal Sex Female 12:09 PM EDT Gender Identity Not on file Sexual Orientation Not on file Last Filed Vital Signs Vital Sign Reading Time Taken Comments Blood Pressure 107/89 08/05/2021 5:31 PM EST Pulse 83 08/05/2021 5:31 PM EST Temperature 37.2 C (98.9 F) 08/05/2021 5:31 PM EST Respiratory Rate 17 08/05/2021 5:31 PM EST Oxygen Saturation 98% 08/05/2021 5:31 PM EST Inhaled Oxygen Concentration - - Weight 52.2 kg (115 lb) 08/05/2021 5:31 PM EST Height 160 cm (5' 3 ) 08/05/2021 5:31 PM EST Body Mass Index 20.37 08/05/2021 5:31 PM EST Plan of Treatment Health Maintenance Due Date Last Done Comments Depression Screening 2006 Tobacco Screening 2006 Adult BMI Screening 2012 Pap Smear 10/12/2015 Influenza Vaccine 03/29/2025 05/06/2012 DTaP,Tdap and Td Vaccines (8 - Td or Tdap) 07/16/2029 07/16/2019, 08/22/2009, 03/12/2000, Additional history exists Medical Devices Not on file Insurance [employer] Care Teams Dough Brake Machine Operator Relationship Specialty Start Date End Date Bibiana Matias, BAGGAGE SCREENER-COMMUNITY SERVICES COORDINATOR PCP - General Nurse Practitioner 05/16/21
--- OUTSIDE RECORDS SUMMARY | 2025-03-08 15:09 | XMS_ITS | Clinical Summary ---
Author Organization [facility] Address [address] [place] [address] Care Team Providers Care Rn Building Name Role Phone Zac Jarquin MD Primary Care Provider [phone] Bibiana Matias NP Unavailable [phone] Allergies Active Allergy Reactions Criticality Noted Date Comments Nitrofurantoin GI intolerance 04/04/2023 Sulfamethoxazole-Trimethoprim Unknown 2022 Medications ondansetron ODT (Zofran-ODT) 4 MG disintegrating tabletIndications: Nausea and vomiting, unspecified vomiting type Take 1 tablet (4 mg) by mouth every 8 (eight) hours if needed for nausea or vomiting for up to 7 days 21 tablet 5 025 Active hydrOXYzine pamoate (Vistaril) 25 MG capsuleIndications :Anxiety Take 1 capsule (25 mg) by mouth every 8 (eight) hours if needed for itching for up to 10 days 30 capsule 5 025 Active vilazodone (Viibryd) 20 MG tabletIndications: Bipolar affective disorder, current episode manic, current episode severity unspecified (HCC),Anxiety Start with 1/2 tablet daily for 7 days, then increase to 1 tablet 30 tablet 1 5 Active lurasidone (Latuda) 60 MG tablet Take 60 mg by mouth in the morning. Take with meals. 4 025 Discontin ued(Thera py completed ) vilazodone (Viibryd) 20 MG tablet Take 20 mg by mouth in the morning. Take with meals. 08 025 Discontin ued(Thera py completed ) Hospital, Clinic, or Other Facility Administered Medication Ordered Dose Route Frequency Start Date End Date Status Levonorgestrel intrauterine device 52 mgIndications:Encounter for IUD insertion 52 mg IU Continuous 07/01/2023 Active Active Problems Problem Noted Date Diagnosed Date Anxiety 03/08/2025 Vomiting 06/03/2024 Assessment & Plan (06/03/2024 6:08 PM EST): Will send to Er, for dehydration Diarrhea 06/03/2024 Assessment & Plan (06/03/2024 6:09 PM EST): with similar symptoms, going on 9 days She does have blood in diarrhea as well as fatigue and weakness Neg covid in office test I am going to send her to ER for evaluation with hope of possible IV fluid therapy as well Dehydration 06/03/2024 Assessment & Plan (06/03/2024 6:10 PM EST): To ER for evaluation for possible fluids and labs Bipolar affective disorder, current episode charito c 10/14/2023 Assessment & Plan (04/15/2024 5:39 PM EDT): Continue with psych for med mgmt Assessment & Plan (10/14/2023 7:38 PM EDT): Continue current meds, and cont with psych RB (rectal bleeding) 10/14/2023 Overview (10/14/2023): 08/17/22 colonoscopy: normal Assessment & Plan (04/15/2024 5:40 PM EDT): Still occurring, no clear etiology. It was felt possibly related to mental health?? And stress At this point we discussed next step, her labs and CT scan no acute findings Will refer to GI for second opinion Assessment & Plan (10/14/2023 7:53 PM EDT): Less freq Dyspareunia in female 01/01/2023 Missed period 01/01/2023 PCB (post coital bleeding) 01/01/2023 Postprocedural hemorrhage of a digestive system organ or structure following a digestive system procedure 01/01/2023 Dysmenorrhea 01/01/2023 Encounters Date Type Department Care Team Description 03/08/2025 2:00 PM EDT Office Visit [facility] [address] [place] [address] Bibiana Matias NP Dehydration (Primary Dx); Nausea and vomiting, unspecified vomiting type; Bipolar affective disorder, current episode manic, current episode severity unspecified (HCC); Anxiety 03/08/2025 Bamboo flowsheet [facility] [address] [place] [address] Bibiana Matias NP 03/08/2025 Travel from Last 3 Months Immunizations Immunization Administration Dates Next Due DTP 02/11/1996,06/11/1995,03/06/1995 ,1994 DTaP 03/12/2000 DTaP, Unspecified 03/12/2000 HPV 9-Valent 11/23/2011,05/23/2011,12/14/2010 Hep A, Unspecified 12/14/2010 Hep A, ped/adol, 2 dose 05/06/2012,12/14/2010 Hep B, Adolescent or Pediatric 06/11/1995,1994,1994 HiB, unspecified 06/11/1995,03/06/1995, 5 Hib (HbOC) 06/11/1995,03/06/1995,1994 IPV 03/12/2000 Influenza, live, intranasal 05/06/2012 MMR 03/12/2000,02/11/1996 Meningococcal ACWY, unspecified 12/14/2010 Meningococcal MCV4P 12/14/2010 OPV 06/11/1995,03/06/1995,1994 Polio, Unspecified 03/12/2000 Tdap 07/16/2019,08/22/2009 Varicella 12/14/2010,03/12/2000 Family History Relation Name Status Comments Father Alive Mother Alive Social History Tobacco Use Types Packs/Day Years Used Date Smoking Tobacco: Never Smokeless Tobacco: Never Tobacco Cessation:Counseling Given: Not Answered Alcohol Use Standard Drinks/Week Comments Never 0 [...] Never 03/08/2025 How often do you attend taoism or restorationism serv ices? Never 03/08/2025 Do you belong to any clubs o r organizations such as taoism groups, unions, fraternal or athletic groups, or [...] Recorded Patient Health Questionnaire-2 Score 2 10/14/2023 [facility] - Occupational Stress Questionnaire Answer Date Recorded [...] place to sleep or slept in a longterm (including now)? No 10/14/2023 Housing Stability Vital Sign Answer Garrett e Recorded In the last 12 months, was t here a time when you were not able to pay the mortgage or rent on time? Yes 03/08/2025 In the past 12 months, how m any times have you moved where you were living? 1 03/08/2025 At any time in the past 12 m [facility], were you homeless or living in a longterm (including now)? No 03/08/2025 Comments No Sex [...] 12.8 oz) 03/08/2025 2:02 PM EDT Height 160 cm (5' 3 ) 06/03/2024 5:37 PM EST Body Mass Index 24.23 06/03/2024 5:37 PM EST Plan of Treatment Upcoming Encounters Date Type Department Care Team (Late st Contact Info) Description 04/13/2025 11:30 AM EDT Office Visit [facility] [address] [place] [address] Bibiana Matias NP [address] [place] [address] 04/21/2025 3:30 PM EDT Office Visit [facility] [address] [facility] [place] [address] Nessa Montaño PA [address] [place], [place] [phone] Health Maintenance Due Date Last Done Comments HPV/Cotest 2024 Cervical Cancer Screening 04/04/2026 Pap Smear 04/04/2026 04/04/2023, 01/22/2022 Influenza Vaccine Discontinued 05/06/2012 Procedures Procedure Name Priority Date/Time Associated Diagnosis Comments PAP SMEAR Routine 04/04/2023 12:00 AM EDT from Last 3 Months or Most Recently Relevant to Health Maintenance Results * Pap Smear (04/04/2023 12:00 AM EDT) Swab Cervical swab / Unknown us Migel Moriah DO LAB CYTOLOGY ORDERABLES Final Re sult EXTERNAL LAB from Last 3 Months or Most Recently Relevant to Health Maintenance Insurance [employer] Care Teams Rn Building Relationship Specialty Start Date End Date Zac Jarquin MD [address] [place] [phone] PCP - General Family Medicine 02/12/23 Bibiana Matias NP [address] [place] [address] Referring Physician Nurse Practitioner 02/12/23
--- OUTSIDE RECORDS SUMMARY | 2025-03-08 15:09 | XMS_ITS | Encounter Summary ---
Author Organization [facility] Address [address] [place] [address] Care Team Providers Care Public Relations Name Role Phone Zac Jarquin MD Primary Care Provider Bibiana Matias NP Unavailable [phone] Encounter Details Date Type Department Care Team (Late st Contact Info) Description 03/08/2025 Bamboo flowsheet [facility] [address] [place] [address] Bibiana Matias NP [address] [place] [address] Social History Tobacco Use Types Packs/Day Years [...] Never 03/08/2025 How often do you attend sabianist or adventist serv ices? Never 03/08/2025 Do you belong to any clubs o r organizations such as sabianist groups, unions, fraternal or athletic groups, or [...] Recorded Patient Health Questionnaire-2 Score 2 10/14/2023 [facility] of Occupat ional Health - Occupational Stress [...] place to sleep or slept in a custodial (including now)? No 10/14/2023 Housing Stability Vital Sign Answer Garrett e Recorded In the last 12 months, was t here a time when you were not able to pay the mortgage or rent on time? Yes 03/08/2025 In the past 12 months, how m any times have you moved where you were living? 1 03/08/2025 At any time in the past 12 m [facility], were you homeless or living in a custodial (including now)? No 03/08/2025 Comments No Sex and Gender Information Value Date Recorded Sex Assigned at Not on file Legal Sex Female 7:26 PM EDT Gender Identity Not on file Sexual Orientation Not on file documented as of this encounter Functional Status * Audit-C Score Answer Date of Assessment Author 7 03/08/2025 12:39 PM EDT Mario Generic * Q1: How often do you have a drink containing alcohol? Answer Date of Assessment Author 2-3 times a week 03/08/2025 12:39 PM EDT Mario Generic * Q2: How many drinks containing [...] Mychart, Generic documented as of this encounter Plan of Treatment Upcoming Encounters Date Type Department Care Team (Late st Contact Info) Description 04/13/2025 11:30 AM EDT Office Visit [facility] [address] [place] [address] Bibiana Matias NP [address] [place] [address] 04/21/2025 3:30 PM EDT Office Visit [facility] [address] [facility] [place] [address] Nessa Montaño PA [address] [facility] [address] [place], [place] [phone] documented as of this encounter Visit Diagnoses Not on filedocumented in this encounter Care Teams Public Relations Relationship Specialty Start Date End Date Zac Jarquin MD [address] [place] [address] PCP - General Family Medicine 02/12/23 Bibiana Matias NP [address] [place] [address] Referring Physician Nurse Practitioner 02/12/23 documented as of this encounter
--- OUTSIDE RECORDS SUMMARY | 2025-03-08 15:09 | XMS_ITS | Encounter Summary ---
Author Organization [facility] Address [address] [facility] [place] [address] Care Team Providers Care Shovel Operator Name Role Phone Zac Jarquin MD Primary Care Provider [phone] Bibiana Matias NP Unavailable [phone] Encounter Details Date Type Department Care Team (Late st Contact Info) Description 04/03/2023 Abstract [facility] [address] [facility] [place] [address] Nessa Montaño PA [address] [facility] [place] [address] Social History Tobacco Use Types Packs/Day Years Used Date Smoking Tobacco: Never Smokeless Tobacco: Never Alcohol Use Standard Drinks/Week Comments Never 0 (1 standard drink = 0.6 oz pur e alcohol) caffeine: 1-2 cups per day Comments Unknown Sex and Gender Information Value Date Recorded Sex Assigned at Not on file Legal Sex Female 7:26 PM EDT Gender Identity Not on file Sexual Orientation Not on file COVID-19 Exposure Response Date Recorded In the last 10 days, have yo u been in contact with someone who was confirmed or suspected to have Coronavirus/COVID-19? No / Unsure 04/03/2023 3:39 PM EDT documented as of this encounter Plan of Treatment Upcoming Encounters Date Type Department Care Team (Late st Contact Info) Description 04/13/2025 11:30 AM EDT [facility] [address] [place] [address] Bibiana Matias, SHAUN [address] [place] [address] 04/21/2025 3:30 PM EDT Office Visit [facility] [address] [facility] [place] [address] Nessa Montaño PA [address] [facility] [address] [place], [place] [address] documented as of this encounter Visit Diagnoses Not on filedocumented in this encounter Care Teams Shovel Operator Relationship Specialty Start Date End Date Zac Jarquin MD [address] [place] [address] PCP - General Family Medicine 02/12/23 Bibiana Matias NP [address] [place] [address] Referring Physician Nurse Practitioner 02/12/23 documented as of this encounter
--- OUTSIDE RECORDS SUMMARY | 2025-03-08 15:09 | XMS_ITS | Encounter Summary ---
Author Organization [facility] Address [address] [facility] [place] [address] Care Team Providers Care Industrial Sales Engineer Name Role Phone Zac Jarquin MD Primary Care Provider [phone] Bibiana Matias IN FLIGHT TECHNICIAN Unavailable [phone] Encounter Details Date Type Department Care Team (Late st Contact Info) Description 01/01/2023 Abstract [facility] [address] [facility] [address] [place] [phone] Migel Major DO [address] [facility] [place] [address] Social History Tobacco Use Types Packs/Day Years [...] on file documented as of this encounter Plan of Treatment Upcoming Encounters Date Type Department Care Team (Late st Contact Info) Description 04/13/2025 11:30 AM EDT Office Visit [facility] [address] [place] [phone] Bibiana Matias, IN FLIGHT TECHNICIAN [address] [place] [phone] 04/21/2025 3:30 PM EDT Office Visit [facility] [address] [place] [place] [address] Nessa Montaño PA [address] [facility] [place] [address] documented as of this encounter Visit Diagnoses Not on filedocumented in this encounter Care Teams Industrial Sales Engineer Relationship Specialty Start Date End Date Zac Jarquin MD [address] [place] [address] PCP - General Family Medicine 02/12/23 Bibiana Matias NP [address] [place] [address] Referring Physician Nurse Practitioner 02/12/23 documented as of this encounter
--- OUTSIDE RECORDS SUMMARY | 2025-03-08 15:09 | XMS_ITS | Clinical Summary ---
Author Organization [facility] Address [address], [address] [place] [address] Care Team Providers Care Provider Contracting Consultant Name Role Phone Bibiana Matias APRN, NP Primary Care Provide r Allergies Active Allergy Reactions Criticality Noted Date Comments Sulfamethoxazole-Trimethoprim Nausea And Vomiting Low 11/06/2022 Medications levonorgestrel-eth inyl estradiol (SETLAKIN) 0.15-0.03 MG per tablet Take 1 tablet by mouth daily Active ondansetron (ZOFRAN-ODT) 4 MG disintegrating tablet Take 1 tablet by mouth every 8 hours as needed for Nausea or Vomiting Active dicyclomine (BENTYL) 20 MG tablet Take 1 tablet by mouth in the morning and 1 tablet at noon and 1 tablet in the evening and 1 tablet before bedtime. Active polyethylene glycol (MIRALAX) 17 GM/SCOOP powderIndications: Constipation, unspecified constipation type Take 17 g by mouth daily You must purchase two 32-ounce bottles of Gatorade from the store. [NO RED OR PURPLE LIQUIDS.] Please follow further instructions as listed on your Colonoscopy Preparation sheet. 255 g 1 11/14/19 23 Active Additional Information Patient not taking.Reported on 04/07/2024 lurasidone (LATUDA) 60 MG TABS tablet Take 1 tablet by mouth daily (with breakfast) 10/01/19 24 Active levonorgestrel (MIRENA) IUD 52 mg 1 each by IntraUTERine route continuous 07/01/20 23 Active hydrOXYzine pamoate (VISTARIL) 25 MG capsule 1 capsule 05/27/20 23 Active Family History Medical History Relation Name Comments Addiction problem Father Addiction problem Mother Relation Name Status Comments Father Mother Social History Tobacco Use Types Packs/Day Years Used Date Smoking Tobacco: Never Smokeless Tobacco: Never Tobacco Cessation:Counseling Given: Not Answered Alcohol Use Standard Drinks/Week Comments Yes 0 (1 standard drink = 0.6 oz pur e alcohol) occasional Comments No Sex and Gender Information Value Date Recorded Sex Assigned at Not on file Legal Sex Female 9:33 AM EST Gender Identity Not on file Sexual Orientation Not on file Last Filed Vital Signs Vital Sign Reading Time Taken Comments Blood Pressure 100/54 04/07/2024 10:00 AM EDT Pulse 60 04/07/2024 8:25 AM EDT Temperature 36.6 C (97.8 F) 04/07/2024 8:25 AM EDT Respiratory Rate 18 04/07/2024 8:25 AM EDT Oxygen Saturation 98% 04/07/2024 10:20 AM EDT Inhaled Oxygen Concentration - - Weight 54.4 kg (120 lb) 04/07/2024 8:25 AM EDT Height 160 cm (5' 3 ) 04/07/2024 8:25 AM EDT Body Mass Index 21.26 04/07/2024 8:25 AM EDT Plan of Treatment Health Maintenance Due Date Last Done Comments Depression Screen 2006 HIV screen 2009 Hepatitis C screen 2012 Pap smear 10/12/2015 COVID-19 Vaccine ( season) 2024 Cervical cancer screen 2024 HPV (without or with Pap) 2024 Flu vaccine (#1) 02/26/2025 05/06/2012 DTaP/Tdap/Td vaccine (8 - Td or Tdap) 07/16/2029 07/16/2019, 08/22/2009, 03/12/2000, Additional history exists Hepatitis B vaccine Completed 06/11/1995, 1994, 1994 Hib vaccine Aged Out 06/11/1995, 03/1995, 1994 No longer eligible based on patient's age to complete this topic Polio vaccine Completed 03/12/2000, 05/29, 03/06/1995, Additional history exists Meningococcal (ACWY) vaccine Completed 12/14/2010 Varicella vaccine Completed 12/14/2010, 03/12/2000 HPV vaccine Completed 11/23/2011, 04/29, 12/14/2010 Hepatitis A vaccine Completed 05/06/2012, 1 Meningococcal B vaccine Aged Out No l onger eligible based on patient's age to complete this topic Pneumococcal 0-49 years Vaccine Aged Out No longer eligible based on patient's age to complete this topic Insurance [facility] Care Teams Provider Contracting Consultant Relationship Specialty Start Date End Date Bibiana Matias, FRANCHISE MANAGER - [employer] [address] [place] [id number] PCP - General Nurse Practitioner 11/13/22
--- OUTSIDE RECORDS SUMMARY | 2025-03-08 15:09 | XMS_ITS | Encounter Summary ---
Author Organization [facility] Address [address] [place] [address] Care Team Providers Care Office System Analyst Name Role Phone Zac Jarquin MD Primary Care Provider [phone] Bibiana Matias NP Unavailable [phone] Encounter Details Date Type Department Care Team (Latest Contact Info) Description 03/08/2025 Travel Social History Tobacco Use Types Packs/Day Years [...] Never 03/08/2025 How often do you attend congregation or pentecostalism serv ices? Never 03/08/2025 Do you belong to any clubs o r organizations such as congregation groups, unions, fraternal or athletic groups, or [...] Recorded Patient Health Questionnaire-2 Score 2 10/14/2023 [facility] - Occupational Stress [...] place to sleep or slept in a care home (including now)? No 10/14/2023 Housing Stability Vital Sign Answer Garrett e Recorded In the last 12 months, was t here a time when you were not able to pay the mortgage or rent on time? Yes 03/08/2025 In the past 12 months, how m any times have you moved where you were living? 1 03/08/2025 At any time in the past 12 m [facility], were you homeless or living in a care home (including now)? No 03/08/2025 Comments No Sex and Gender Information Value Date Recorded Sex Assigned at Not on file Legal Sex Female 7:26 PM EDT Gender Identity Not on file Sexual Orientation Not on file documented as of this encounter Functional Status * Audit-C Score Answer Date of Assessment Author 7 03/08/2025 12:39 PM EDT Mycsheridant, Generic * Q1: How often do you have a drink containing alcohol? Answer Date of Assessment Author 2-3 times a week 03/08/2025 12:39 PM EDT Mycsheridant , Generic * Q2: How many drinks containing alcohol do you have on a typical day when you are drinking? Answer Date of Assessment Author 5 or 6 03/08/2025 12:39 PM EDT Reynat, Generic * Q3: How often do you have six or more drinks on one occasion? Answer Date of Assessment Author Monthly 03/08/2025 12:39 PM EDT Mario, Generic documented as of this encounter Plan of Treatment Upcoming Encounters Date Type Department Care Team (Late st Contact Info) Description 04/13/2025 11:30 AM EDT [facility] Visit [facility] [address] [place] [address] Bibiana Matias, SHAUN [address] [place] [phone] 04/21/2025 3:30 PM EDT Office Visit [facility] [address] [place] [address] Nessa Montaño PA [address] [place] [address] documented as of this encounter Visit Diagnoses Not on filedocumented in this encounter Care Teams Office System Analyst Relationship Specialty Start Date End Date Zac Jarquin MD [address] [place] [phone] PCP - General Family Medicine 02/12/23 Bibiana Matias, SHAUN [address] [place] [phone] Referring Physician Nurse Practitioner 02/12/23 documented as of this encounter
--- OUTSIDE RECORDS SUMMARY | 2025-03-08 15:10 | XMS_ITS | Patient Health Record ---
Author Organization [facility] Address [address] [place] [address] Care Team Providers Care Exhibit Cleaner Name Role Phone Steve Crowder Primary Care Provider [phone] Allergies Allergen (clinical drug ingredient) Drug/Non Drug Allergy documented on EMR Reaction Allergy Type Onset Date Status sulfamethoxazole / trimethoprim Bactrim Unknown Drug Allergy Active Reason For Referral No Information Medications Medication SIG (Take, Route, Frequency, Duration) Notes Start Date End Date Status QUEtiapine Fumarate 25 MG 1 tablet at bedtime Orally Once a day; Duration: 30 day(s) 07/16/2023 Not-Taking hydrOXYzine Pamoate 25 MG 1 capsule Orally three times a day (tid) as needed (prn); Duration: 30 days 05/27/2023 Not-Taking Sertraline HCl 50 MG 1 tablet Orally Once a day Not-Taking Jolessa 0.15-0.03 MG 1 tablet Orally Once a day Not-Taking Vilazodone HCl 20 MG 1 tablet with food Orally Once a day; Duration: 30 days 01/21/2024 Active Lurasidone HCl 60 MG 1 tablet in the evening with food Orally Once a day; Duration: 30 days 05/27/2023 Active Vilazodone HCl 10 MG 1 tablet with food Orally Once a day; Duration: 30 days Take with 20 mg tablet for 30 mg total 04/16/2024 Not-Taking Propranolol HCl 40 MG 1 tablet Orally twice a day (bid) as needed (prn); Duration: 30 day(s) 05/27/2023 Not-Taking Social History Tobacco Use: Social History Observation Description Date Details (start date - stop date) Never Smoker NA - NA Tobacco Screen: Question Answer Notes Are you a: never smoker Depression Screening (PHQ-9): Question Answer Notes Little interest or pleasure in doing things Near ly every day Feeling down, depressed, or hopeless Not at all Trouble falling or staying a sleep, or sleeping too much Nearly every day Feeling tired or having little energy Nearly sivakumar ry day Poor appetite or overeating Several days Feeling bad about yourself-o r that you are a failure or have let yourself or your family down Nearly every day Trouble concentrating on thi ngs, such as reading the newspaper or watching television Nearly every day Moving or speaking so slowly that other people could have noticed. Or the opposite being so fidgety or restless that you have been moving around a lot more than usual Not at all Thoughts that you would be b matt off , or of hurting yourself in some way Not at all Total Score 16 Intepretation Moderately severe depression Problems Problem Type SNOMED Code ICD Code Onset Dates Problem Status W/U Status Risk Notes Problem Bipolar affective disorder, currently manic, mild (380872168) Bipolar affective disorder, currently manic, mild (F31.11) Active confirmed Vital Signs Heart Rate 66 /min 05/25/2024 Temperature 97.4 degrees Fahrenheit 05/25/2024 Blood pressure diastolic 71 mm Hg 05/25/2024 Oximetry 98 % 05/25/2024 Height 63 in 05/25/2024 Blood pressure systolic 111 mm Hg 05/25/2024 Weight 133.8 lbs 05/25/2024 BMI 23.7 kg/m2 05/25/2024 Encounters Encounter Location Date Provider Diagnosis [facility] [address] [place] [address] 05/08/2024 Kip Sovimagdiel Bipolar affective disorder, currently manic, mild F31.11 [facility] [address] [place] [address] 05/12/2024 Kip Soviak Bipolar affective disorder, currently manic, mild F31.11 [address] [place] [address] 05/25/2024 Kip Soviak Bipolar affective disorder, currently manic, mild F31.11 [facility] [address] [place] [address] 08/24/2024 Steve Crowder Bipolar affective disorder, currently manic, mild F31.11 [place] [address] 04/16/2024 Steve Crowder Bipolar affective disorder, currently manic, mild F31.11 Assessments Encounter Date Diagnosis (ICD Code) Assessment Notes Treatment Notes Treatment Clinical Notes Section Notes 04/16/2024 Bipolar affective disorder, currently manic, mild (ICD-10 - F31.11) Patient will continue current treatment plan. Increase for lurasidone to 30 mg for the next 30 days and follow-up in 1 month to discuss and evaluate this medication change. Patient verbally acknowledges understanding instructions including medication education and has no further questions comments or concerns at this time. . Follow in 1 Month . Recommended treatment for Bipolar disorder includes FDA approved and OFF label medications: second generation antipsychotics and mood stabilizers. Discussed life threatening side effect of Lamotrigine. Pt is to monitor for new skin rashes or sensation of a sunburn or itchiness or redness, mouth sores or sores in mucus membranes, and call provider immediately and or go to ER, and stop the medication. Second generation antipsychotic medications can cause headache, drowsiness, agitation, dizziness, nausea, or extrapyramidal symptoms such as tremors, muscle spasms, slowness of movement or jerking of muscles. . Stable . The patient verbalizes understanding with all questions answered thoroughly and is in agreement with treatment plan. . Continue current treatment. Call for problems . GOALS: . Maintain medication regimen . _Improve mood stability . _Improve anxiety control . _Improve social and interpersonal functioning . Patient/Guardian will call sooner if symptoms worsen. Patient understands to go to ER if needed if symptoms become severe. . Crisis Intervention plan was discussed and agreed upon. Patient/Guardian will call 911 in case of emergency. Emergency contact information was provided to the patient/guardian. . Pharmacological management: . Alternative medication plans were discussed with the patient/guardian. All relevant side effects and potential adverse effects were discussed with the patient/guardian. Standard cautions and potential benefits were discussed. Patient/Guardian consented to the start/continuation of the treatment. 08/24/2024 Bipolar affective disorder, currently manic, mild (ICD-10 - F31.11) Patient will stop current treatment plan. Patient verbally acknowledges understanding instructions including medication education and has no further questions comments or concerns at this time. . Follow up as needed . Recommended treatment for Bipolar disorder includes FDA approved and OFF label medications: second generation antipsychotics and mood stabilizers. Discussed life threatening side effect of Lamotrigine. Pt is to monitor for new skin rashes or sensation of a sunburn or itchiness or redness, mouth sores or sores in mucus membranes, and call provider immediately and or go to ER, and stop the medication. Second generation antipsychotic medications can cause headache, drowsiness, agitation, dizziness, nausea, or extrapyramidal symptoms such as tremors, muscle spasms, slowness of movement or jerking of muscles. . Stable . The patient verbalizes understanding with all questions answered thoroughly and is in agreement with treatment plan. . Continue current treatment. Call for problems . GOALS: . Maintain medication regimen . _Improve mood stability . _Improve anxiety control . _Improve social and interpersonal functioning . Patient/Guardian will call sooner if symptoms worsen. Patient understands to go to ER if needed if symptoms become severe. . Crisis Intervention plan was discussed and agreed upon. Patient/Guardian will call 911 in case of emergency. Emergency contact information was provided to the patient/guardian. . Pharmacological management: . Alternative medication plans were discussed with the patient/guardian. All relevant side effects and potential adverse effects were discussed with the patient/guardian. Standard cautions and potential benefits were discussed. Patient/Guardian consented to the start/continuation of the treatment. 05/08/2024 Bipolar affective disorder, currently manic, mild (ICD-10 - F31.11) 05/12/2024 Bipolar affective disorder, currently manic, mild (ICD-10 - F31.11) 05/25/2024 Bipolar affective disorder, currently manic, mild (ICD-10 - F31.11) Patient will continue current treatment plan. Patient verbally acknowledges understanding instructions including medication education and has no further questions comments or concerns at this time. . Follow in 3 Month . Recommended treatment for Bipolar disorder includes FDA approved and OFF label medications: second generation antipsychotics and mood stabilizers. Discussed life threatening side effect of Lamotrigine. Pt is to monitor for new skin rashes or sensation of a sunburn or itchiness or redness, mouth sores or sores in mucus membranes, and call provider immediately and or go to ER, and stop the medication. Second generation antipsychotic medications can cause headache, drowsiness, agitation, dizziness, nausea, or extrapyramidal symptoms such as tremors, muscle spasms, slowness of movement or jerking of muscles. . Stable . The patient verbalizes understanding with all questions answered thoroughly and is in agreement with treatment plan. . Continue current treatment. Call for problems . GOALS: . Maintain medication regimen . _Improve mood stability . _Improve anxiety control . _Improve social and interpersonal functioning . Patient/Guardian will call sooner if symptoms worsen. Patient understands to go to ER if needed if symptoms become severe. . Crisis Intervention plan was discussed and agreed upon. Patient/Guardian will call 911 in case of emergency. Emergency contact information was provided to the patient/guardian. . Pharmacological management: . Alternative medication plans were discussed with the patient/guardian. All relevant side effects and potential adverse effects were discussed with the patient/guardian. Standard cautions and potential benefits were discussed. Patient/Guardian consented to the start/continuation of the treatment. Plan Of Treatment No Information Insurance Providers Payer Name Payer Address Payer Phone Subscriber Number Group Number Insured Name Patient Relationship to Insured Coverage Start Date Coverage End Date [employer] [address] [address] [place] [address] [id number] PRATIK CORONEL Self - patient is the insured 3 Medical (General) History Medical History History ICD Code anxiety
[2025-03-08 15:22] LABS: Hematocrit 43.1 % (36.0-48.0); Hemoglobin 15.2 g/dL (12.0-16.0); Immature Granulocytes Abs Auto 0.02 10^3/uL (0.00-0.03); Immature Granulocytes Pct Auto 0.3 % (0.0-0.5); Lymphocytes Absolute Auto 1.4 10^3/uL (1.2-3.8); Mean Corpuscular HGB Conc 35.3 g/dL (29.9-35.2); Mean Corpuscular Hemoglobin 32.4 pg (26.7-34.0); Mean Corpuscular Volume 91.9 fL (81.0-99.0); Platelet Count 233 10^3/uL (150-450); Red Blood Count 4.69 10^6/uL (4.20-5.40); White Blood Count 6.6 10^3/uL (4.0-11.0)
[2025-03-08 15:30] LABS: Anion Gap 10.7; Blood Urea Nitrogen 10.0 mg/dL (7.0-18.0); Calcium 9.6 mg/dL (8.5-10.1); Carbon Dioxide 30.1 mmol/L (21.0-32.0); Chloride 100 mmol/L (98-107); Estimated GFR (African America >60 (>=60 mL/min/1.73m^2); Estimated GFR (Non-African Ame >60 (>=60 mL/min/1.73m^2); Glucose 84 mg/dL (74-106); Magnesium 1.9 mg/dL (1.8-2.4); Potassium 3.8 mmol/L (3.5-5.1); Sodium 137 mmol/L (136-145)
== END 2025-03-08 15:05 | disposition home or self-care (01) ==
LOC: LAB 15:07
PROVIDERS: PCP Nurse Practitioner; Visit Provider Nurse Practitioner
DX: E86.0 Dehydration (principal)
CPT/HCPCS: 36415; 80048; 83735; 85025

== ENCOUNTER 2025-03-24 12:28 | Outpatient (OUT) | payer OTHER, SELFPAY ==
--- OUTSIDE RECORDS SUMMARY | 2025-03-24 11:30 | XMS_ITS | Encounter Summary ---
Author Organization [facility] Address [address] [place] [address] Care Team Providers Care Forge Operator Name Role Phone Zac Jarquin MD Primary Care Provider [phone] Bibiana Matias NP Unavailable [phone] Reason for Visit * Reason Comments Check Placement Encounter Details Date Type Department Care Team (Late st Contact Info) Description 03/24/2025 11:30 AM EDT Office Visit ALBERT [facility] [address] [place] [address] Migel Major DO [address] [place] [id number] Pelvic pain in female; Breakthrough bleeding with IUD; Menorrhagia with regular cycle Social History Tobacco Use Types Packs/Day Years [...] Never 03/08/2025 How often do you attend temple or druze serv ices? Never 03/08/2025 Do you belong to any clubs o r organizations such as temple groups, unions, fraternal or athletic groups, or [...] Recorded Patient Health Questionnaire-2 Score 2 10/14/2023 [facility] - Occupational [...] place to sleep or slept in a residential (including now)? No 10/14/2023 Housing Stability Vital Sign Answer Garrett e Recorded In the last 12 months, was t here a time when you were not able to pay the mortgage or rent on time? Yes 03/08/2025 In the past 12 months, how m any times have you moved where you were living? 1 03/08/2025 At any time in the past 12 m [facility], were you homeless or living in a residential (including now)? No 03/08/2025 Comments No Sex and Gender Information Value Date Recorded Sex Assigned at Not on file Legal Sex Female 7:26 PM EDT Gender Identity Not on file Sexual Orientation Not on file documented as of this encounter Last Filed Vital Signs Vital Sign Reading Time Taken Comments Blood Pressure 102/74 03/24/2025 11:48 AM EDT Pulse - - Temperature - - Respiratory Rate - - Oxygen Saturation - - Inhaled Oxygen Concentration - - Weight 61.5 kg (135 lb 8 oz) 03/24/2025 11:48 AM EDT Height - - Body Mass Index 24 06/03/2024 5:37 PM EST documented in this encounter Progress Notes * Karen Guaman, PYRIDINE OPERATOR - 03/24/2025 11:30 AM EDT Reason for Appointment: Patient ID: Padmaja Duffy is a 29 y.o. female who presents for Check Placement Patient presents today for String Check Follow Up appointment. MEDICATIONS Current Outpatient Medications Medication Instructions hydrOXYzine pamoate (VISTARIL) 25 mg, Oral, Every 8 hours PRN vilazodone (Viibryd) 20 MG tablet Start with 1/2 tablet daily for 7 days, then increase to 1 tablet ALLERGIES Allergies Allergen Reactions Nitrofurantoin GI intolerance Sulfamethoxazole-Trimethoprim Unknown PROBLEMS Active Ambulatory Problems Diagnosis Date Noted Dyspareunia in female 01/01/2023 Missed period 01/01/2023 PCB (post coital bleeding) 01/01/2023 Postprocedural hemorrhage of a digestive system organ or structure following a digestive system procedure 01/01/2023 Dysmenorrhea 01/01/2023 Bipolar affective disorder, current episode manic (HCC) 10/14/2023 RB (rectal bleeding) 10/14/2023 Vomiting 06/03/2024 Diarrhea 06/03/2024 Dehydration 06/03/2024 Anxiety 03/08/2025 Resolved Ambulatory Problems Diagnosis Date Noted No Resolved Ambulatory Problems No Additional Past Medical History HISTORY PAST MEDICAL HISTORY SOCIAL HISTORY No past medical history on file. Social History Tobacco Use Smoking status: Never Smokeless tobacco: Never Vaping Use Vaping status: Never Used Substance Use Topics Alcohol use: Never Comment: caffeine: 1-2 cups per day Drug use: Never FAMILY HISTORY No family history on file. SURGICAL HISTORY No past surgical history on file. REVIEW OF SYSTEMS Review of Systems: Review of Systems Constitutional: Negative. HENT: Negative. Eyes: Negative. Respiratory: Negative. Cardiovascular: Negative. Gastrointestinal: Negative. Genitourinary: Negative. Musculoskeletal: Negative. Skin: Negative. Neurological: Negative. All other systems reviewed and are negative. Hematological: Negative. Endocrine: Negative. Allergic/Immunologic: Negative. OBJECTIVE Objective: Physical Exam Constitutional: Appearance: Normal appearance. She [...] nursing note reviewed. Exam conducted with a career guidance technician present. Vitals: Estimated body mass index is 24 kg/m?? as calculated from the following: Height as of 06/03/24: 5' 3 . Weight as of this encounter: 135 lb 8 oz. BP: 102/74 No LMP recorded. (Menstrual status: IUD). ASSESSMENT & PLAN ICD-10-CM 1. Pelvic pain in female R10.2 POCT , urine manually resulted 2. Breakthrough bleeding with IUD N92.1 US pelvis transvaginal Z97.5 Pt has complaints of breakthrough bleeding with IUD. Pelvic exam performed strings seen. Pt given ultrasound and labs to have obtained. Discussed adding ocp for one month to help bleeding cease. Pt voiced understanding Documented by Karen Guaman LPN on behalf of: Migel Major DO documented in this encounter Plan of Treatment Upcoming Encounters Date Type Department Care Team (Late st Contact Info) Description 03/25/2025 3:00 PM EDT Ancillary Procedure ALBERT ARREGUIN [address] [place] [address] 04/13/2025 11:30 AM EDT Office Visit [facility] [address] [place] [phone] Bibiana Matias NP [address] [place] [address] 04/21/2025 3:30 PM EDT Office Visit ALBERT ARREGUIN [address] [place] [address] Nessa Montaño PA [address] [place] [address] [place] [address] Scheduled Orders Name Type Priority Associated Diagnoses Orde r Schedule US pelvis transvaginal Imaging Routine Breakthrough bleeding with IUD Expected: 03/24/2025, Expires: 09/24/2025 CBC and differential Lab Routine Menorrhagia with regular cycle Ordered: 03/24/2025 TSH Lab Routine Menorrhagia with regular cycle Ordered: 03/24/2025 hCG, quantitative, Lab Routine Menorrhagia with regular cycle Ordered: 03/24/2025 Protime-INR Lab Routine Menorrhagia with regular cycle Ordered: 03/24/2025 T4, free Lab Routine Menorrhagia with regular cycle Ordered: 03/24/2025 APTT Lab Routine Menorrhagia with regular cycle Expected: 03/24/2025 (Approximate), Expires: 03/24/2026 Hemoglobin A1c Lab Routine Menorrhagia with regular cycle Ordered: 03/24/2025 documented as of this encounter Procedures Procedure Name Priority Date/Time Associated Diagnosis Comments POCT , URINE Routine 03/24/2025 11:54 AM EDT Pelvic pain in female documented in this encounter Results * POCT , urine manually resulted (03/24/2025 11:54 AM EDT) Preg Test, Ur Negative Negative Urine 03/24/2025 11:5 4 AM EDT Migel Harriso DO POINT OF CARE TEST ENTER/EDIT OR DERABLES Final Result documented in this encounter Visit Diagnoses Diagnosis Pelvic pain in female Unspecified symptom associated with female genital organs Breakthrough bleeding with IUD Menorrhagia with regular cycle documented in this encounter Care Teams Forge Operator Relationship Specialty Start Date End Date Zac Jarquin MD [address] [place] [address] PCP - General Family Medicine 02/12/23 Bibiana Matias NP [address] [place] [address] Referring Physician Nurse Practitioner 02/12/23 documented as of this encounter
--- OUTSIDE RECORDS SUMMARY | 2025-03-24 12:30 | XMS_ITS | Clinical Summary ---
Author Organization [facility] Address [address], [address] [place] [address] Care Team Providers Care Shipwright Name Role Phone Bibiana Matias APRN, NP [...] patient's age to complete this topic Insurance [facility] Care Teams Shipwright Relationship Specialty Start Date End Date Bibiana Matias, GASTROENTEROLOGY TECHNICIAN - SHOT BLAST EQUIPMENT OPERATOR [address] [place] [phone] PCP - General Nurse Practitioner 11/13/22
--- OUTSIDE RECORDS SUMMARY | 2025-03-24 12:30 | XMS_ITS | Encounter Summary ---
Author Organization [facility] Address [address] [facility] [place] [address] Care Team Providers Care Staff Midwife Name Role Phone Zac Jarquin MD Primary Care Provider [phone] Bibiana Matias NP Unavailable [phone] Encounter Details Date Type Department Care Team (Late Contact Info) Description 04/03/2023 Abstract ALBERT ARREGUIN [address] [place] [address] Nessa Montaño PA [address] [place], [facility] Social History Tobacco Use Types Packs/Day Years [...] PM EDT Ancillary Procedure ALBERT ARREGUIN [address] [place] [address] 04/13/2025 11:30 AM EDT Office Visit [facility] [address] [place] [address] Bibiana Matias NP [address] [place] [address] 04/21/2025 3:30 PM EDT Office Visit [facility] [address] [place] [address] Nessa Montaño PA [address] [place] [address] documented as of this encounter Visit Diagnoses Not on filedocumented in this encounter Care Teams Staff Midwife Relationship Specialty Start Date End Date Zac Jarquin MD [address] [place] [address] PCP - General Family Medicine 02/12/23 Bibiana Matias NP [address] [place] [address] Referring Physician Nurse Practitioner 02/12/23 documented as of this encounter
--- OUTSIDE RECORDS SUMMARY | 2025-03-24 12:30 | XMS_ITS | Encounter Summary ---
Author Organization [facility] Address [address] [place] [address] Care Team Providers Care Compliance Consultant Name Role Phone Zac Jarquin MD Primary Care Provider [phone] Bibiana Matias NP Unavailable [phone] Encounter Details Date Type Department Care Team (Late st Contact Info) Description 01/01/2023 Abstract [facility] ARREGUIN [address] [place] [address] Migel Major DO [address] [facility] [place], [place] [id number] Social History Tobacco Use Types Packs/Day Years [...] PM EDT Ancillary Procedure [facility]ERT [facility]REG[facility]IN [address] [facility] [place] [address] 04/13/2025 11:30 AM EDT Office Visit [facility] [address] [place] [address] Bibiana Matias, SHAUN [address] [place] [address] 04/21/2025 3:30 PM EDT Office Visit ALBERT ARREGUIN [address] [facility] [phone] Nessa Montaño PA [address] [facility] [facility] [address] [place], [place] [id number] documented as of this encounter Visit Diagnoses Not on filedocumented in this encounter Care Teams Compliance Consultant Relationship Specialty Start Date End Date Zac Jarquin MD [address] [place] [address] PCP - General Family Medicine 02/12/23 Bibiana Matias NP [address] [place] [address] Referring Physician Nurse Practitioner 02/12/23 documented as of this encounter
--- OUTSIDE RECORDS SUMMARY | 2025-03-24 12:31 | XMS_ITS | Encounter Summary ---
Author Organization [facility] Address [address] [place] [address] Care Team Providers Care Athletics Director Name Role Phone Zac Jarquin MD Primary Care Provider [phone] Bibiana Matias NP Unavailable [phone] Encounter Details Date Type Department Care Team (Late st Contact Info) Description 03/24/2025 Bamboo flowsheet [facility] [address] [facility] [address] Migel Major DO [address] [facility] [address] [place], [facility] Social History Tobacco Use Types Packs/Day Years [...] Never 03/08/2025 How often do you attend restorationism or nondenominational serv ices? Never 03/08/2025 Do you belong to any clubs o r organizations such as restorationism groups, unions, fraternal or athletic groups, or [...] Recorded Patient Health Questionnaire-2 Score 2 10/14/2023 [facility] - Occupational Stress [...] place to sleep or slept in a senior living (including now)? No 10/14/2023 Housing Stability Vital [...] time in the past 12 m [facility], were you homeless or living in a senior living (including now)? No 03/08/2025 Comments No Sex and Gender Information Value Date Recorded Sex Assigned at Not on file Legal Sex Female 7:26 PM EDT Gender Identity Not on file Sexual Orientation Not on file documented as of this encounter Plan of Treatment Upcoming Encounters Date Type Department Care Team (Late st Contact Info) Description 03/25/2025 3:00 PM EDT Ancillary Procedure [facility] ARREG[facility] [address] [place] [address] [place] [address] 04/13/2025 11:30 AM EDT Office Visit [facility] [address] [place] [address] Bibiana Matias NP [address] [place] [address] 04/21/2025 3:30 PM EDT Office Visit [facility] [address] [facility] [address] Nessa Montaño PA [address] [facility] [address] [place], [place] [phone] documented as of this encounter Visit Diagnoses Not on filedocumented in this encounter Care Teams Athletics Director Relationship Specialty Start Date End Date Zac Jarquin MD [address] [place] [address] PCP - General Family Medicine 02/12/23 Bibiana Matias NP [address] [place] [address] Referring Physician Nurse Practitioner 02/12/23 documented as of this encounter
--- OUTSIDE RECORDS SUMMARY | 2025-03-24 12:31 | XMS_ITS | Patient Health Record ---
Author Organization [facility] Address [address] [place] [address] Care Team Providers Care Exhibit Cleaner Name Role Phone Steev Crowder Primary Care Provider [phone] Christi Pemberton Unavailable [phone] Allergies Allergen (clinical drug ingredient) Drug/Non Drug Allergy documented on EMR Reaction Allergy Type Onset Date Status sulfamethoxazole / trimethoprim Bactrim Unknown Drug Allergy Active Reason For Referral No Information Medications Medication SIG (Take, Route, Frequency, Duration) Notes Start Date End Date Status Sertraline HCl 50 MG 1 tablet Orally Once a day Not-Taking Vilazodone HCl 20 MG Oral; Duration: 30 Days Active hydrOXYzine Pamoate 25 MG Oral; Duration: 10 Days Active Lurasidone HCl 60 MG 1 tablet in the evening with food Orally Once a day; Duration: 30 days 05/27/2023 Not-Taking Ondansetron 4 MG Oral; Duration: 7 Days Active Propranolol HCl 40 MG 1 tablet Orally twice a day (bid) as needed (prn); Duration: 30 day(s) 05/27/2023 Not-Taking Vilazodone HCl 20 MG 1 tablet with food Orally Once a day; Duration: 30 days 01/21/2024 Not-Taking hydrOXYzine Pamoate 25 MG 1 capsule Orally three times a day (tid) as needed (prn); Duration: 30 days 05/27/2023 Not-Taking Vilazodone HCl 10 MG 1 tablet with food Orally Once a day; Duration: 30 days Take with 20 mg tablet for 30 mg total 04/16/2024 Not-Taking Jolessa 0.15-0.03 MG 1 tablet Orally Once a day Not-Taking QUEtiapine Fumarate 25 MG 1 tablet at bedtime Orally Once a day; Duration: 30 day(s) 07/16/2023 Not-Taking Social History Tobacco Use: Social History Observation Description Date Details (start date - stop date) Never Smoker NA - NA Sex Assigned At : Social History Observation Description Sex Assigned At Female Depression Screening (PHQ-9): Question Answer Notes Little interest or pleasure in doing things Nearly every day Feeling down, depressed, or hopeless Nearly ever y day Trouble falling or staying a sleep, or sleeping too much Nearly every day Feeling tired or having little energy Nearly sivakumar ry day Poor appetite or overeating Nearly every day Feeling bad about yourself-o r that you [...] moving around a lot more than usual Nearly every day Thoughts that you would be b matt off , or of hurting yourself in some way Nearly every day(Consider Suicide Assessment Risk) Total Score 27 Intepretation Severe Depression AUDIT-C (Standard) Question Answer Notes Did you have a drink containing alcohol in the p ast year? No Points 0 Interpretation Negative Tobacco Control (Standard) Question Answer Notes Tobacco use: Nonsmoker Problems Problem Type SNOMED Code ICD Code Onset Dates Problem Status W/U Status Risk Notes Problem Bipolar affective disorder, currently manic, mild (F31.11) Active confirmed Vital Signs Heart Rate 70 /min 03/09/2025 Temperature 97.4 degrees Fahrenheit 05/25/2024 Blood pressure diastolic 73 mm Hg 03/09/2025 Oximetry 98 % 03/09/2025 Height 63 in 03/09/2025 Blood pressure systolic 109 mm Hg 03/09/2025 Weight 137 lbs 03/09/2025 BMI 24.27 kg/m2 03/09/2025 Encounters Encounter Location Date Provider Diagnosis [facility] [address] [address] 05/08/2024 Steve Crowder Bipolar affective disorder, currently manic, mild F31.11 [facility] [address] [place] [address] 05/12/2024 [facility] [place] Bipolar affective disorder, currently manic, mild F31.11 [facility] [address] [place] [address] 05/25/2024 Ki [place] Bipolar affective disorder, currently manic, mild F31.11 [facility] [address] [facility] [place] [address] 03/09/2025 Christi Pemberton Bipolar affective disorder, currently manic, mild F31.11 [facility] [address] [place] [address] 08/24/2024 Ki [place] Bipolar affective disorder, currently manic, mild F31.11 [facility] [address] [place] [address] 04/16/2024 [facility] [place] Bipolar affective disorder, currently manic, mild [...] consented to the start/continuation of the treatment. 03/09/2025 Bipolar affective disorder, currently manic, mild (ICD-10 - F31.11) restarted Viibryd from PCP yesterday will f/u in 1 month and PRN gave support and crisis information Discussed risks and side effects of medication including possible nausea, headache, upset stomach, diarrhea, constipation, anxiety, irritability, and sexual dysfunction. Most mild side effects improve over 4-6 weeks of use. Please monitor for worsening of symptoms, especially suicidal ideations or morbid thoughts, and call office and or go to the emergency department immediately if this occurs. Patient verbalized understanding, in agreement with plan. 05/08/2024 Bipolar affective disorder, currently manic, mild [...] start/continuation of the treatment. Plan Of Treatment Next Appt Details Provider Name:Christi caballero, 04/13/2025 01:00:00 PM, [facility] [place], [address], Insurance Providers Payer Name Payer Address Payer Phone Subscriber Number Group Number Insured Name Patient Relationship to Insured Coverage Start Date Coverage End Date [employer] [address] [address] [place] [phone] [id number] PRATIK CORONEL Self - patient is the insured 3 Medical (General) History Medical History History ICD Code anxiety
--- OUTSIDE RECORDS SUMMARY | 2025-03-24 12:31 | XMS_ITS | Clinical Summary ---
Author Organization [facility] Address [id number] [address] [place] [address] Care Team Providers Care Paralegal Secretary Name Role Phone BienvenidocaronBibiana madsen APRN-BARREL RIFLER OPERATOR Primary Care Provider Allergies Active Allergy Reactions [...] on file Insurance [employer] Care Teams Paralegal Secretary Relationship Specialty Start Date End Date Bibiana Matias, SIGN ERECTOR-BARREL RIFLER OPERATOR PCP - General Nurse Practitioner 05/16/21
--- OUTSIDE RECORDS SUMMARY | 2025-03-24 12:46 | XMS_ITS | CCD ---
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 Marito Monroe MD BUN/CRE Ratio 16 Normal 9-20 [facility] Comment on above: Performed By: #### C P, CDP, HCG #### [facility] [address] [place] [address] Senior Operator: Marito Monroe MD Calcium [Mass/Vol] 9.4 mg/dL Normal 8.6-10.4 [facility] Comment on above: Performed By: #### C P, CDP, HCG #### [facility] [address] [place], [place] 7297083 Senior Operator: Marito Monroe MD Chloride [Moles/Vol] 105 mmol/L Normal 98-107 [facility] Comment on above: Performed By: #### C P, CDP, HCG #### [facility] [address] [place], [place] 8885983 Senior Operator: Marito Monroe MD CO2 [Moles/Vol] 25 mmol/L Normal 20-31 [facility] Comment on above: Performed By: #### C P, CDP, HCG #### [facility] [address] [place], [place] 2120883 Senior Operator: Marito Monroe MD Creatinine [Mass/Vol] 0.8 mg/dL Normal 0.50-0.90 [facility] Comment on above: Performed By: #### C P, CDP, HCG #### [facility] [address] [place] [id number] Senior Operator: Marito Monroe MD GFR/1.73 sq M.predicted among non-blacks MDRD (S/P/Bld) [Vol rate/Area] mL/min/{1.73_m2} Normal >60 [facility] Comment on above: Result Comment: These [...] By: #### C P, CDP, HCG #### [facility] [address] [place] [address] Senior Operator: Marito Monroe MD Glucose [Mass/Vol] 93 mg/dL Normal 74-99 [facility] Comment on above: Performed By: #### C P, CDP, HCG #### [facility] [address] [place], [place] [phone] Senior Operator: Marito Monroe MD Potassium [Moles/Vol] 3.9 mmol/L Normal 3.7-5.3 [facility] Comment on above: Performed By: #### C P, CDP, HCG #### [facility] [address] [place], [place] [id number] Senior Operator: Marito Monroe MD Protein [Mass/Vol] 6.7 g/dL Normal 6.6-8.7 [facility] Comment on above: Performed By: #### C P, CDP, HCG #### [facility] [address] [place], [place] 9793483 Senior Operator: Marito Monroe MD Sodium [Moles/Vol] 142 mmol/L Normal 136-145 [facility] Comment on above: Performed By: #### C P, CDP, HCG #### [facility] [address] [place], [place] [phone] Senior Operator: Marito Monroe MD Urea nitrogen [Mass/Vol] 13 mg/dL Normal 6-20 [facility] Comment on above: Performed By: #### C P, CDP, HCG #### [facility] [address] [place] [address] Senior Operator: Marito Monroe MD Comprehensive Metabolic [facility] 04-07-2024 Albumin [Mass/Vol] 4.4 g/dL 3.5 - 5.2 g/dL [facility] Albumin/Globulin [Mass ratio] 2.0 {ratio} 1.0 - 2.5 [facility] ALP [Catalytic activity/Vol] 47 U/L 35 - 104 U/L [facility] ALT [Catalytic activity/Vol] 7 U/L Low 10 - 35 U/L [facility] Anion gap [Moles/Vol] 12 mmol/L 9 - 16 mmol/L [facility] AST [Catalytic activity/Vol] 16 U/L 10 - 35 U/L [facility] Bilirubin [Mass/Vol] 0.3 mg/dL 0.00 - 1.20 mg/dL [facility] Calcium [Mass/Vol] 9.4 mg/dL 8.6 - 10. 4 mg/dL [facility] Chloride [Moles/Vol] 105 mmol/L 98 - 107 mmol/L [facility] CO2 [Moles/Vol] 25 mmol/L 20 - 31 mmol/L [facility] Creatinine [Mass/Vol] 0.8 mg/dL 0.50 - 0.90 mg/dL [facility] Est, Glom Filt Rate - [facility] Comment on above: These results are not intended for use [...] following therapy that affects renal tubular secretion. Glucose [Mass/Vol] 93 mg/dL 74 - 99 mg/dL [facility] Interpretation and review of laboratory results Abnormal [facility] Potassium [Moles/Vol] 3.9 mmol/L 3.7 - 5.3 mmol/L [facility] Protein [Mass/Vol] 6.7 g/dL 6.6 - 8.7 g/dL [facility] Sodium [Moles/Vol] 142 mmol/L 136 - 145 mmol/L [facility] Urea nitrogen [Mass/Vol] 13 mg/dL 6 - 20 mg/dL [facility] Urea nitrogen/Creatinine [Mass ratio] 16 mg/mg 9 - 20 [facility] HCG Qualitative, Serumon HCG ( test) Ql Negative NEGATIVE [facility] Comment on above: Specimens with hCG l evels near the threshold of the test (25 mIU/mL) may give a negative or indeterminate result. In such cases, another test should be performed with a new specimen in 48-72 hours. If early is suspected clinically in this setting, correlation with quantitative serum b-hCG level is suggested. [facility] has confirmed the use of plasma for this test. This has not been cleared or approved by the U.S. Food and Drug Administration. The FDA has determined that such clearance is not necessary. [facility] HCG Screen, Bloodon 04-07-20 HCG Screen, Blood Negative Normal NEG [facility] Comment on above: Result Comment: Spec imens with hCG levels near the threshold of the test (25 mIU/mL) may give a negative or indeterminate result. In such cases, another test should be performed with a new specimen in 48-72 hours. If early is suspected clinically in this setting, correlation with quantitative serum b-hCG level is suggested. [facility] has confirmed the use of plasma for this test. This has not been cleared or approved by the U.S. Food and Drug Administration. The FDA has determined that such clearance is not necessary. Performed By: #### C P, CDP, HCG #### [facility] [address] [place] [address] Senior Operator: Marito Monroe MD Lactic Acidon 04-07-2024 Lactate (BldV) [Moles/Vol] 0.9 mmol/L 0.5 - 2.2 mmol/L [facility] Lactate [Moles/Vol] 0.9 mmol/L Normal 0.5-2.2 [facility] Comment on above: Performed By: #### L ACTIC #### [facility] [address] [place] [address] Senior Operator: Marito Monroe MD PT TRICHOMONAS/WET PREPon 04-07-2024 PT TRICHOMONAS/WET PREP Specimen Description .VAGINA [facility] TRICHOMONAS/WET PREP [facility] NO CLUE CELLS SEEN [facility] TRICHOMONAS/WET PREP Report Status FINAL 04/07/2024 [facility] Original Ordering Provider: [facility] Urinalysison Bacteria LM Ql (Urine sed) 1+ Abnormal None [facility] Epithelial cells LM.HPF (Urine sed) [#/Area] 2 TO 5 [facility] Interpretation and review of laboratory results Abnormal [facility] Mucus Ql (Urine sed) TRACE Abnormal None [facility] RBC LM.HPF (Urine sed) [#/Area] 0 TO 2 [facility] WBC LM.HPF (Urine sed) [#/Area] 0 TO 2 [facility] Trichomonas/Wet Prepon 04-07 Trichomonas/Wet Prep Specimen Description .VAGINA Direct Exam NO YEAST OBSERVED NO TRICHOMONAS SEEN NO CLUE CELLS SEEN Report Status FINAL 04/07/2024 Normal [facility] Comment on above: Performed By: #### W P #### [facility] [address] [place] [address] [place] [address] Senior Operator: Marito Monroe MD UA w/Reflex Cultureon 2023 Clarity (U) Clear Normal CLEAR [facility] Comment on above: Performed By: #### U RED TAVERA #### [facility] [address] [place] [address] Senior Operator: Marito Monroe MD Color (U) Yellow Normal YEL [facility] Comment on above: Performed By: #### U RED TAVERA #### [facility] [address] [place] [address] Senior Operator: Marito Monroe MD Leukocyte esterase Test strip Ql (U) Negative Normal NEG [facility] Comment on above: Performed By: #### U RED TAVERA #### [facility] [address] [place], [place] [id number] Senior Operator: Marito Monroe MD Bilirubin, SemiQt,Ur Negative Normal NEG [facility] Comment on above: Performed By: #### U AX, UMICAO #### [facility] [address] [place], [place] [phone] Senior Operator: Marito Monroe MD Blood, Urine Negative Normal NEG [facility] Comment on above: Performed By: #### U AX, UMICAO #### [facility] [address] [place] [address] Dr. [place], [place] [phone] Senior Operator: Marito Monroe MD Glucose Ql (U) Negative Normal NEG [facility] Comment on above: Performed By: #### U AX, UMICAO #### [address] [place], [facility] Senior Operator: Marito Monroe MD Ketones Ql (U) 1+ mg/dL Abnormal NEG [facility] Comment on above: Performed By: #### U AX, UMICAO #### [address] [place], [place] 7403783 Senior Operator: Marito Monroe MD Nitrite,Ur Negative Normal [facility] Comment on above: Performed By: #### U AX, UMICAO #### [facility] [address] [place] [address] Dr. [place], [place] 9540083 Senior Operator: Marito Monroe MD PH,Ur 6.0 Normal 5.0-9.0 [facility] Comment on above: Performed By: #### U AX, UMICAO #### [address] [place], [place] 4963583 Senior Operator: Marito Monroe MD Protein Ql (U) Negative Normal NEG [facility] Comment on above: Performed By: #### U AX, UMICAO #### [facility] [address] [place] [address] [place] [address] Senior Operator: Marito Monroe MD Spec. O'Neals,Ur >1.030 High 1.010-1.020 [facility] Comment on above: Performed By: #### U AXTAWANDAO #### [facility] [address] [place] [address] Senior Operator: Marito Monroe MD Urobilinogen,Ur Normal Normal 0.0-1.0 [facility] Comment on above: Performed By: #### U RED TAVERA #### [facility] [address] [place] [address] Senior Operator: Marito Monroe MD Urinalysis with Reflex to Cu ltureon 04-07-2024 Bilirubin Ql (U) Negative NEGATIVE [facility] Glucose Test strip (U) [Mass/Vol] Negative NEGATIVE mg/dL [facility] Hemoglobin Auto test strip Ql (U) Negative NEGATIVE [facility] Interpretation and review of laboratory results Abnormal [facility] Ketones (U) [Mass/Vol] 1+ Abnormal NEGATIVE mg/dL [facility] Nitrite Ql (U) Negative NEGATIVE [facility] pH (U) 6.0 [pH] 5.0 - 9.0 [facility] Protein (U) [Mass/Vol] Negative NEGATIVE mg/dL [facility] Specific gravity (U) [Rel density] High 1.010 - 1.020 [facility] Urobilinogen Qn (U) Normal 0.0 - 1. 0 EU/dL [facility] Urinalysis,Microon 4 Bacteria 1+ Abnormal NONE [facility] Comment on above: Performed By: #### U RED TAVERA #### [facility] [address] [place] [address] Senior Operator: Marito Monroe MD Epithelial cells LM Ql (Urine sed) 2 TO 5 Normal 0-25 [facility] Comment on above: Performed By: #### U AX, UMICAO #### [facility] [address] [place], [place] 8321983 Senior Operator: Marito Monroe MD Mucus Strands TRACE Abnormal NONE [facility] Comment on above: Performed By: #### U AX, UMICAO #### [facility] [address] [place], [place] [phone] Senior Operator: Marito Monroe MD Urine RBC's 0 TO 2 Normal 0-2 [facility] Comment on above: Performed By: #### U AX, UMICAO #### [facility] [address] [place], [place] 4660183 Senior Operator: Marito Monroe MD Urine WBC's 0 TO 2 Normal 0-5 [facility] Comment on above: Performed By: #### U AX, UMICAO #### [facility] [address] [place], [facility]83 Senior Operator: Marito Monroe MD Wet prep, genitalon 04-07-20 24 Microorganism or agent identified Nom (Unsp spec) NO YEAST OBSERVED [facility] Microorganism or agent identified Nom (Unsp spec) NO TRICHOMONAS SEEN [facility] Microorganism or agent identified Nom (Unsp spec) NO CLUE CELLS SEEN [facility] Specimen Description .VAGINA [facility] Physician Referralon 023 Physician Referral [phone] [id number] Normal [facility] US PELVIS AND TRANSVAGon US PELVIS [...] SANDRA YOUSSEF Date: 2022-09-19 09:43 Normal [facility] PREG HCG QUALon 08-17-2022 , QUAL Negative Normal NEGATIVE [facility] Comment on above: Performed By: #### P REG #### [facility] [address] [place] [address] Aniyah Oliveira [facility]29 SARS-CoV-2 (COVID-19) RNA CHITO+probe Ql (Unsp spec) Not detected Normal NOT DETECTED [facility] Comment on above: Result Comment: This test is not yet approved or cleared by the [place] FDA. When there are no FDA-approved or cleared tests available, and other criteria are met, FDA can make tests available under an emergency access mechanism called an Emergency Use Authorization (EUA). The EUA for this test is supported by the [employer] of Health and Human Service's (HHS's) declaration [...] SARS-CoV-2. Performed By: #### P REG #### [facility] [address] [place] [address] ABD/PELV W CONon [...] LEANDRO SCOTT Date: 2022-07-30 13:10 Normal [facility] STOOL CULTUREon 07-21-2022 Campylobacter Culture Final report Normal [facility] Comment on above: Performed By: #### C XSTOOL #### [facility] [address] [place] [address] Dr. Aniyah Oliveira E coli Shiga Toxin EIA Negative Normal Negative [facility] Comment on above: Performed By: #### C XSTOOL #### [facility] [address] [place] [address] Dr. Aniyah Oliveira Result 1 Comment Normal [facility] Comment on above: Result Comment: No S almonella or Shigella recovered. Performed By: #### C XSTOOL #### [facility] [address] [address] [address] Aniyah Oliveira Result Comment: No C ampylobacter species isolated. Salmonella/Shigella Screen Final report Normal [facility] Comment on above: Performed By: #### C XSTOOL #### [facility] [address] [place] [address] Dr. Aniyah Oliveira LACTOFERRIN FECAL QUANTon Lactoferrin, Fecal, Quant. 0.56 ug/mL(g) Normal 0.00-7.24 [facility] Comment on above: Result Comment: . [...] (IBS). Performed By: #### P REG #### [facility] [address] [place] [address] Dr. Aniyah Oliveira CBC AUTO DIFFon 07-11-2022 BASO # 0.0 103/ul Normal 0.0-0.1 [facility] Comment on above: Performed By: #### P REG #### [facility] [address] [place] [address] Dr. Aniyah Oliveira Basophils/100 WBC (Bld) 0.2 % Normal 0.2-2.0 [facility] Comment on above: Performed By: #### P REG #### [facility] [address] [place] [address] Dr. Aniyah Oliveira EO # 0.1 103/ul Normal 0.0-0.7 [facility] Comment on above: Performed By: #### P REG #### [facility] [address] [place] [address] Dr. Aniyah Oliveira Eosinophils/100 WBC (Bld) 1.6 % Normal 0.9-7.0 [facility] Comment on above: Performed By: #### P REG #### [facility] [address] [place] [address] Dr. Aniyah Oliveira Erythrocyte distribution width (RBC) [Ratio] 12.0 % Normal 11.0-15.0 [facility] Comment on above: Performed By: #### P REG #### [facility] [address] [place] [address] Dr. Aniyah Oliveira Hematocrit (Bld) [Volume fraction] 37.7 % Normal 36.0-48.0 [facility] Comment on above: Performed By: #### P REG #### [facility] [address] [address] [address] Aniyah Oliveira Hemoglobin (Bld) [Mass/Vol] 12.9 g/dL Normal 12.0-16.0 [facility] Comment on above: Performed By: #### P REG #### [facility] [address] [address] [address] Aniyah Oliveira IG # 0.01 10e3/ul Normal 0.00-0.03 [facility] Comment on above: Performed By: #### P REG #### [facility] [address] [place] [address] Dr. Aniyah Oliveira IG % 0.2 % Normal 0.0-0.5 [facility] Comment on above: Performed By: #### P REG #### [facility] [address] [place] [address] Dr. Aniyah Oliveira LYMPH # 1.8 103/ul Normal 1.2-3.8 [facility] Comment on above: Performed By: #### P REG #### [facility] [address] [place] [address] Dr. Aniyah Oliveira Lymphocytes/100 WBC (Bld) 31.7 % Normal 20.5-60.0 [facility] Comment on above: Performed By: #### P REG #### [facility] [address] [place] [address] Dr. Aniyah Oliveira MANUAL DIFF REQ NO Normal [facility] Comment on above: Performed By: #### P REG #### [facility] [address] [place] [address] Dr. Aniyah Oliveira MCH (RBC) [Entitic mass] 31.0 pg Normal 26.7-34.0 [facility] Comment on above: Performed By: #### P REG #### [facility] [address] [place] [address] Dr. Aniyah Oliveira MCHC (RBC) [Mass/Vol] 34.2 g/dL Normal 29.9-35.2 [facility] Comment on above: Performed By: #### P REG #### [facility] [address] [address] [address] Aniyah Oliveira MCV (RBC) [Entitic vol] 90.6 fL Normal 81.0-99.0 [facility] Comment on above: Performed By: #### P REG #### [facility] [address] [address] [address] Aniyah Oliveira MONO # 0.3 103/ul Normal 0.3-0.8 [facility] Comment on above: Performed By: #### P REG #### [facility] [address] [address] [address] Aniyah Oliveira Monocytes/100 WBC (Bld) 5.0 % Normal 1.7-12.0 [facility] Comment on above: Performed By: #### P REG #### [facility] [address] [place] [address] Dr. Aniyah Oliveira NEUT # 3.4 103/ul Normal 1.4-6.5 [facility] Comment on above: Performed By: #### P REG #### [facility] [address] [address] [address] Aniyah Oliveira Neutrophils/100 WBC (Bld) 61.3 % Normal 43.0-75.0 [facility] Comment on above: Performed By: #### P REG #### [facility] [address] [place] [address] Dr. Aniyah Oliveira Platelet mean volume (Bld) [Entitic vol] 10.3 fL Normal 9.5-13.5 [facility] Comment on above: Performed By: #### P REG #### [facility] [address] [address] [address] Aniyah Oliveira PLT 188 103/ul Normal 150-450 [facility] Comment on above: Performed By: #### P REG #### [facility] [address] [address] [address] Aniyah Oliveira RBC 4.16 106/ul Critically low 4.20-5.40 [facility] Comment on above: Performed By: #### P REG #### [facility] [address] [place] [address] Dr. Aniyah Oliveira WBC 5.6 103/ul Normal 4.0-11.0 [facility] Comment on above: Performed By: #### P REG #### [facility] [address] [place] [address] Dr. Aniyah Oliveira PREG QUANT HCGon 07-11-2022 HCG QUANT <[address] [facility] Comment on above: Performed By: #### P REGQNT, CMP #### [facility] [address] [place] [address] Dr. Aniyah Oliveira HCG RANGE SEE BELOW Normal [facility] Comment on above: Result Comment: 5-50 0.2-1 WEEK 50-500 1-2 WEEKS 100-5,000 2-3 WEEKS 500-10,000 3-4 WEEKS 1,000-50,000 4-5 WEEKS 10,000-100,000 5-6 WEEKS 15,000-200,000 6-8 WEEKS 10,000-100,000 2-3 MONTHS Performed By: #### P REGQNT, CMP #### [facility] [address] [place] [address] Dr. Aniyah Oliveira PROF 14(COMP METB)on 022 Albumin [Mass/Vol] 4.2 g/dL Normal 3.4-5.0 [facility] Comment on above: Performed By: #### P REGQNT, CMP #### [facility] [address] [place] [address] Dr. Aniyah Oliveira Albumin/Globulin [Mass ratio] 1.3 {ratio} Normal [facility] Comment on above: Performed By: #### P REGQNT, CMP #### [facility] [address] [place] [address] Dr. Aniyah Oliveira ALP [Catalytic activity/Vol] 32 U/L Critically low 46-116 [facility] Comment on above: Performed By: #### P REGQNT, CMP #### [facility] [address] [place] [address] Dr. Aniyah Oliveira ALT [Catalytic activity/Vol] 14 U/L Normal 14-59 [facility] Comment on above: Performed By: #### P REGQNT, CMP #### [facility] [address] [address] [address] Aniyah Oliveira Anion gap [Moles/Vol] 12.9 mmol/L Normal [facility] Comment on above: Performed By: #### P REGQNT, CMP #### [facility] [address] [address] [address] Aniyah Oliveira AST [Catalytic activity/Vol] 15 U/L Normal 15-37 [facility] Comment on above: Performed By: #### P REGQNT, CMP #### [facility] [address] [address] [address] Aniyah Oliveira Bilirubin [Mass/Vol] 0.3 mg/dL Normal 0.2-1.0 [facility] Comment on above: Performed By: #### P REGQNT, CMP #### [facility] [address] [place] [address] Dr. Aniyah Oliveira Calcium [Mass/Vol] 9.2 mg/dL Normal 8.5-10.1 [facility] Comment on above: Performed By: #### P REGQNT, CMP #### [facility] [address] [place] [address] Dr. Aniyah Oliveira Chloride [Moles/Vol] 102 mmol/L Normal 98-107 [facility] Comment on above: Performed By: #### P REGQNT, CMP #### [facility] [address] [address] [address] Aniyah Oliveira CO2 [Moles/Vol] 27.6 mmol/L Normal 21.0-32.0 [facility] Comment on above: Performed By: #### P REGQNT, CMP #### [facility] [address] [place] [address] Dr. Aniyah Oliveira Creatinine [Mass/Vol] 0.73 mg/dL Normal 0.55-1.02 [facility] Comment on above: Performed By: #### P REGQNT, CMP #### [facility] [address] [place] [address] Dr. Aniyah Oliveira EGFR-AF MONEGASQUE >60 Normal >=60 [facility] Comment on above: Performed By: #### P REGQNT, CMP #### [facility] [address] [place] [address] Dr. Aniyah Oliveira EGFR-NON AF MONEGASQUE >60 Normal >=60 [facility] Comment on above: Performed By: #### P REGQNT, CMP #### [facility] [address] [address] [address] Aniyah Oliveira Globulin (S) [Mass/Vol] 3.2 g/dL Normal [facility] Comment on above: Performed By: #### P REGQNT, CMP #### [facility] [address] [place] [address] Dr. Aniyah Oliveira Glucose [Mass/Vol] 82 mg/dL Normal 74-106 [facility] Comment on above: Performed By: #### P REGQNT, CMP #### [facility] [address] [place] [address] Dr. Aniyah Oliveira Potassium [Moles/Vol] 3.5 mmol/L Normal 3.5-5.1 [facility] Comment on above: Performed By: #### P REGQNT, CMP #### [facility] [address] [place] [address] Dr. Aniyah Oliveira Protein [Mass/Vol] 7.4 g/dL Normal 6.4-8.2 [facility] Comment on above: Performed By: #### P REGQNT, CMP #### [facility] [address] [place] [address] Dr. Aniyah Oliveira Sodium [Moles/Vol] 139 mmol/L Normal 136-145 [facility] Comment on above: Performed By: #### P REGQNT, CMP #### [facility] [address] [place] [address] Dr. Aniyah Oliveira Urea nitrogen [Mass/Vol] 7.0 mg/dL Normal 7.0-18.0 [facility] Comment on above: Performed By: #### P REGQNT, CMP #### [facility] [address] [place] [address] Dr. Aniyah Oliveira Urea nitrogen/Creatinine [Mass ratio] 9.6 mg/mg Normal [facility] Comment on above: Performed By: #### P REGQNT, CMP #### [facility] [address] [place] [address] Dr. Aniyah Oliveira COVID/FLU RT-PCRon 2 SARS-CoV-2 (COVID-19) RNA CHITO+probe Ql (Unsp spec) Negative [employer] Other COVID/FLU RT-PCR Negative [employer] Other CBC W MANUAL DIFFon 04-18-20 22 ATYPICAL LYMPH # Normal [facility] Comment on above: Performed By: #### C ARCADIO #### [facility] [address] [place] [address] Dr. Aniyah Oliveira ATYPICAL LYMPH % Normal [facility] Comment on above: Performed By: #### C ARCADIO #### [facility] [address] [place] [address] Dr. Aniyah Oliveira BAND # 0.1 103/ul Normal 0.0-0.3 [facility] Comment on above: Performed By: #### Devon ERVNI #### [facility] [address] [place] [address] Dr. Aniyah Oliveira BAND % 1 % Normal 0-5 [facility] Comment on above: Performed By: #### Devon ERVIN #### [facility] [address] [place] [address] Dr. Aniyah Oliveira BASOM # 0.00 103/ul Normal 0.00-0.10 [facility] Comment on above: Performed By: #### C ARCADIO #### [facility] [address] [place] [address] Dr. Aniyah Oliveira BASOM % 0.0 % Critically low 0.2-2.0 [facility] Comment on above: Performed By: #### C ARCADIO #### [facility] [address] [place] [address] Dr. Aniyah Oliveira BLAST # Normal [facility] Comment on above: Performed By: #### C ARCADIO #### [facility] [address] [place] [address] Dr. Aniyah Oliveira BLAST % Normal [facility] Comment on above: Performed By: #### C ARCADIO #### [facility] [address] [place] [address] Dr. Aniyah Oliveira CORRECTED WBC Normal 4.0-11.0 [facility] Comment on above: Performed By: #### C ARCADIO #### [facility] [address] [place] [address] Dr. Aniyah Oliveira EOS # 0.00 103/ul Normal 0.00-0.70 [facility] Comment on above: Performed By: #### C ARCADIO #### [facility] [address] [place] [address] Dr. Aniyah Oliveira EOS% 0.0 % Critically low 0.9-7.0 [facility] Comment on above: Performed By: #### C ARCADIO #### [facility] [address] [place] [address] Dr. Aniyah Oliveira HCT 39.9 % Normal 36.0-48.0 [facility] Comment on above: Performed By: #### C ARCADIO #### [facility] [address] [place] [address] Dr. Aniyah Oliveira HGB 13.7 g/dl Normal 12.0-16.0 [facility] Comment on above: Performed By: #### C ARCADIO #### [facility] [address] [place] [address] Dr. Aniyah Oliveira LYMPHM # 0.71 103/ul Critically low 1.20-3.80 [facility] Comment on above: Performed By: #### C ARCADIO #### [facility] [address] [place] [address] Dr. Aniyah Oliveira LYMPHM% 11.0 % Critically low 20.5-60.0 [facility] Comment on above: Performed By: #### C ARCADIO #### [facility] [address] [place] [address] Dr. Aniyah Oliveira MCH 31.5 pg Normal 26.7-34.0 [facility] Comment on above: Performed By: #### C ARCADIO #### [facility] [address] [address] [address] Aniyah Oliveira MCHC 34.3 g/dl Normal 29.9-35.2 [facility] Comment on above: Performed By: #### C ARCADIO #### [facility] [address] [address] [address] Aniyah Oliveira MCV 91.7 fL Normal 81.0-99.0 [facility] Comment on above: Performed By: #### C ARCADIO #### [facility] [address] [place] [address] Dr. Aniyah Oliveira METAMYELOCYTE # Normal [facility] Comment on above: Performed By: #### C ARCADIO #### [facility] [address] [place] [address] Dr. Aniyah Oliveira METAMYELOCYTE % Normal [facility] Comment on above: Performed By: #### C ARCADIO #### [facility] [address] [place] [address] Dr. Aniyah Oliveira MONOM# 0.13 103/ul Critically low 0.30-0.80 [facility] Comment on above: Performed By: #### C ARCADIO #### [facility] [address] [place] [address] Dr. Aniyah Oliveira MONOM% 2.0 % Normal 1.7-12.0 [facility] Comment on above: Performed By: #### C ARCADIO #### [facility] [address] [place] [address] Dr. Aniyah Oliveira MPV 10.5 fL Normal 9.5-13.5 [facility] Comment on above: Performed By: #### C ARCADIO #### [facility] [address] [place] [address] Dr. Aniyah Oliveira MYELOCYTE # Normal [facility] Comment on above: Performed By: #### C ARCADIO #### [facility] [address] [place] [address] Dr. Aniyah Oliveira MYELOCYTE % Normal [facility] Comment on above: Performed By: #### C ARCADIO #### [facility] [address] [address] [address] Aniyah Oliveira NRBC Normal [facility] Comment on above: Performed By: #### C ARCADIO #### [facility] [address] [id number] Aniyah Oliveira PLT 204 103/ul Normal 150-450 [facility] Comment on above: Performed By: #### C ARCADIO #### [facility] [address] [place] [address] Dr. Aniyah Oliveira RBC 4.35 106/ul Normal 4.20-5.40 [facility] Comment on above: Performed By: #### C ARCADIO #### [facility] [address] [place] [address] Dr. Aniyah Oliveira RDW 12.1 % Normal 11.0-15.0 [facility] Comment on above: Performed By: #### C ARCADIO #### [facility] [address] [place] [address] Dr. Aniyah Oliveira SEG # 5.59 103/ul Normal 1.40-6.50 [facility] Comment on above: Performed By: #### C ARCADIO #### [facility] [address] [place] [address] Dr. Aniyah Oliveira SEG % 86.0 % Critically high 43.0-75.0 [facility] Comment on above: Performed By: #### C ARCADIO #### [facility] [address] [place] [address] Dr. Aniyah Oliveira WBC 6.5 103/ul Normal 4.0-11.0 [facility] Comment on above: Performed By: #### C ARCADIO #### [facility] [address] [place] [address] HEAD WO CONon [...] SANDRA YOUSSEF Date: 2022-04-18 14:39 Normal [facility] Covid-19 PCR (CVDTBH)on 03-30 SARS-CoV-2 (COVID-19) RNA CHITO+probe Ql (Unsp spec) Not detected Normal NOT DETECTED [facility] Comment on above: Result Comment: When [...] for this test is supported by the [employer] of Health and Human Service's declaration that [...] longer be used). Performed By: #### C VDTBH #### [facility] [address] [place] [address] [id number] [address] Aniyah Oliveira ER URINE PROFILEon 2 Bilirubin Ql (U) Negative Normal NEGATIVE [facility] Comment on above: Performed By: #### E RUR #### [facility] [address] [place], [place] [address] Dr. Aniyah Oliveira Clarity (U) CLEAR Normal CLEAR [facility] Comment on above: Performed By: #### E RUR #### [facility] [address] [place] [address] Dr. Aniyah Oliveira Color (U) LT. YELLOW Normal YELLOW [facility] Comment on above: Performed By: #### E RUR #### [facility] [address] [place] [address] Dr. Aniyah GALARZA A micrscopic examination will be performed if indicated. Normal [facility] Comment on above: Performed By: #### E RUR #### [facility] [address] [place] [address] Dr. Aniyah Oliveira Glucose Ql (U) Negative Normal NEGATIVE [facility] Comment on above: Performed By: #### E RUR #### [facility] [address] [place] [address] Dr. Aniyah Oliveira Hemoglobin Ql (U) Negative Normal NEGATIVE [facility] Comment on above: Performed By: #### E RUR #### [facility] [address] [place] [address] Dr. Aniyah Oliveira Ketones Ql (U) 15 mg/dl Abnormal NEGATIVE [facility] Comment on above: Performed By: #### E RUR #### [facility] [address] [place] [address] Dr. Aniyah Oliveira LEUKOCYTES Negative Normal NEGATIVE [facility] Comment on above: Performed By: #### E RUR #### [facility] [address] [place] [address] Dr. Aniyah Oliveira Nitrite Ql (U) Negative Normal NEGATIVE [facility] Comment on above: Performed By: #### E RUR #### [facility] [address] [place] [address] Dr. Aniyah Oliveira pH (U) 6.0 [pH] Normal 5-9 [facility] Comment on above: Performed By: #### E RUR #### [facility] [address] [place] [address] Dr. Aniyah Oliveira SPEC GRAVITY 1.005 Normal 1.005-<=1.025 [facility] Comment on above: Performed By: #### E RUR #### [facility] [address] [place] [address] Dr. Aniyah Oliveira UA PROTEIN Negative Normal NEGATIVE/ TRACE [facility] Comment on above: Performed By: #### E RUR #### [facility] [address] [place] [address] Dr. Aniyah Oliveira UR MICRO IND NOT INDICATED Normal [facility] Comment on above: Performed By: #### E RUR #### [facility] [address] [place] [address] Dr. Aniyah Oliveira Urobilinogen Qn (U) 0.2 {Yovani'U}/dL Normal 0.2 - 1. 0 [facility] Comment on above: Performed By: #### E RUR #### [facility] [address] [place] [address] Dr. Aniyah Oliveira PREG HCG QUALon 04-18-2022 , QUAL Negative Normal NEGATIVE [facility] Comment on above: Performed By: #### P REG #### [facility] [address] [place] [address] Dr. Aniyah Oliveira PROF 14(COMP METB)on 022 Albumin [Mass/Vol] 4.2 g/dL Normal 3.4-5.0 [facility] Comment on above: Performed By: #### C MP #### [facility] [address] [place] [address] Dr. Aniyah Oliveira Albumin/Globulin [Mass ratio] 1.3 {ratio} Normal [facility] Comment on above: Performed By: #### C MP #### [facility] [address] [place] [address] Dr. Aniyah Oliveira ALP [Catalytic activity/Vol] 35 U/L Critically low 46-116 [facility] Comment on above: Performed By: #### C MP #### [facility] [address] [place] [address] Dr. Aniyah Oliveira ALT [Catalytic activity/Vol] 18 U/L Normal 14-59 [facility] Comment on above: Performed By: #### C MP #### [facility] [address] [place] [address] Dr. Aniyah Oliveira Anion gap [Moles/Vol] 13.3 mmol/L Normal [facility] Comment on above: Performed By: #### C MP #### [facility] [address] [place] [address] Dr. Aniyah Oliveira AST [Catalytic activity/Vol] 19 U/L Normal 15-37 [facility] Comment on above: Performed By: #### C MP #### [facility] [address] [place] [address] Dr. Aniyah Oliveira Bilirubin [Mass/Vol] 0.3 mg/dL Normal 0.2-1.0 [facility] Comment on above: Performed By: #### C MP #### [facility] [address] [place] [address] Dr. Aniyah Oliveira Calcium [Mass/Vol] 9.5 mg/dL Normal 8.5-10.1 [facility] Comment on above: Performed By: #### C MP #### [facility] [address] [place] [address] Dr. Aniyah Oliveira Chloride [Moles/Vol] 106 mmol/L Normal 98-107 [facility] Comment on above: Performed By: #### C MP #### [facility] [address] [place] [address] Dr. Aniyah Oliveira CO2 [Moles/Vol] 23.6 mmol/L Normal 21.0-32.0 [facility] Comment on above: Performed By: #### C MP #### [facility] [address] [place] [address] Dr. Aniyah Oliveira Creatinine [Mass/Vol] 0.66 mg/dL Normal 0.55-1.02 [facility] Comment on above: Performed By: #### C MP #### [facility] [address] [place] [address] Dr. Aniyah Oliveira EGFR-AF MONEGASQUE >60 Normal >=60 [facility] Comment on above: Performed By: #### C MP #### [facility] [address] [place] [address] Dr. Aniyah Oliveira EGFR-NON AF MONEGASQUE >60 Normal >=60 [facility] Comment on above: Performed By: #### C MP #### [facility] [address] [address] [address] Aniyah Oliveira Globulin (S) [Mass/Vol] 3.2 g/dL Normal [facility] Comment on above: Performed By: #### C MP #### [facility] [address] [address] [address] Aniyah Oliveira Glucose [Mass/Vol] 99 mg/dL Normal 74-106 [facility] Comment on above: Performed By: #### C MP #### [facility] [address] [address] [address] Aniyah Oliveira Potassium [Moles/Vol] 3.9 mmol/L Normal 3.5-5.1 [facility] Comment on above: Performed By: #### C MP #### [facility] [address] [address] [address] Aniyah Oliveira Protein [Mass/Vol] 7.4 g/dL Normal 6.4-8.2 [facility] Comment on above: Performed By: #### C MP #### [facility] [address] [address] [address] Aniyah Oliveira Sodium [Moles/Vol] 139 mmol/L Normal 136-145 [facility] Comment on above: Performed By: #### C MP #### [facility] [address] [address] [address] Aniyah Oliveira Urea nitrogen [Mass/Vol] 4.0 mg/dL Critically low 7.0-18.0 [facility] Comment on above: Performed By: #### C MP #### [facility] [address] [address] [address] Aniyah Oliveira Urea nitrogen/Creatinine [Mass ratio] 6.1 mg/mg Normal [facility] Comment on above: Performed By: #### C MP #### [facility] [address] [address] [address] Aniyah Oliveira XR CHEST 2 Von [...] by: MARITO GUERRA Date: 2022-04-18 14:[address] [facility] XR CSPINE 2_3 VIEWSon 2021 XR [...] by: MARITO GUERRA Date: 2022-04-18 14:[address] [facility] PAP ACOG PANEL 3: 20 to 28on 01-25-2022 . . Normal [facility] Comment on above: Result Comment: Perf ormed at: WB Performed By: #### [id number] #### [facility] [address] [place] [address] Dr. Aniyah Oliveira Age Gdln ACOG Testing - Normal [facility] Comment on above: Performed By: #### [id number] #### [facility] [address] [place] [address] Dr. Aniyah Oliveira Chlamydia, Nuc. Acid Amp Negative Normal Negative [facility] Comment on above: Result Comment: Perf ormed at: =G Performed By: #### [id number] #### [facility] [address] [place] [address] Dr. Aniyah Oliveira DIAGNOSIS: Comment Normal [facility] Comment on above: Result Comment: NEGA TIVE FOR INTRAEPITHELIAL LESION OR MALIGNANCY. Performed at: WB Performed By: #### [id number] #### [facility] [address] [place] [address] Dr. Aniyah Oliveira Gonococcus, Nuc. Acid Amp Negative Normal Negative [facility] Comment on above: Result Comment: Perf ormed at: =G Performed By: #### [id number] #### [facility] [address] [place] [address] Dr. Aniyah Oliveira Methodology: Comment Normal [facility] Comment on above: Result Comment: This liquid based ThinPrep(R) pap test was screened with the use of an image guided system. Performed at: WB Performed By: #### [id number] #### [facility] [address] [place] [address] Dr. Aniyah Oliveira Note: Comment Normal [facility] Comment on above: Result Comment: The Pap smear is a screening test designed to aid in the detection of premalignant and malignant conditions of the uterine cervix. It is not a diagnostic procedure and should not be used as the sole means of detecting cervical cancer. Both false-positive and false-negative reports do occur. . Performed at: WB Performed By: #### [id number] #### [facility] [address] [place] [address] Dr. Aniyah Oliveira Performed by: Comment Normal [facility] Comment on above: Result Comment: Cherelle Crowder, Powder Worker (ASCP) Performed at: WB Performed By: #### [id number] #### [facility] [address] [place] [address] Dr. Aniyah Oliveira Reflex Criteria: Comment Normal [facility] Comment on above: Result Comment: The HPV DNA reflex criteria were not met with this specimen result therefore, no HPV testing was performed. . Performed at: WB Performed By: #### [id number] #### [facility] [address] [place] [address] Dr. Aniyah Oliveira Specimen adequacy: Comment Normal [facility] Comment on above: Result Comment: Sati sfactory for evaluation. Endocervical and/or squamous metaplastic cells (endocervical component) are present. Performed at: WB Performed By: #### [id number] #### [facility] [address] [place] [address] Dr. Aniyah Oliveira VAGINITIS/VAGINOSIS DNA PROB Rehan 01-24-2022 Dang species Negative Normal Negative [facility] Comment on above: Performed By: #### V AGINT #### [facility] [address] [address] [address] Aniyah Oliveira Gardnerella vaginalis Negative Normal Negative [facility] Comment on above: Performed By: #### V AGINT #### [facility] [address] [address] [address] Aniyah Oliveira Trichomonas vaginalis Negative Normal Negative [facility] Comment on above: Performed By: #### V AGINT #### [facility] [address] [address] [address] Aniyah Oliveira Vital Signs Date Time Vital Sign Value Performing Clinician Facility 03-24-2025 11:48-0400 Body mass index (BMI) [Ratio] 24 kg/m2 Migel Moriah DO Work Phone: [facility] 03-24-2025 11:48-0400 Body weight 61.46 kg Migel Moriah DO Work Phone: [facility] 03-24-2025 11:48-0400 Diastolic blood pressure 74 mm[Hg] Migel Moriah DO Work Phone: [facility] 03-24-2025 11:48-0400 Systolic blood pressure 102 mm[Hg] Migel Moriah DO Work Phone: [facility] 03-08-2025 14:02-0400 Body mass index (BMI) [Ratio] 24.23 kg/m2 Bibiana Polly SCRATCH BRUSHER Work Phone: [facility] 03-08-2025 14:02-0400 Body temperature 97.81 [degF] Bibiana Polly [employer] Work Phone: [facility] 03-08-2025 14:02-0400 Body weight 62.05 kg Bibiana Polly [employer] Work Phone: [facility] 03-08-2025 14:02-0400 Diastolic blood pressure 80 mm[Hg] Bibiana Polly SCRATCH BRUSHER Work Phone: [address]11-2025 14:02-0400 Heart rate 78 /min Bibiana Aichholz [employer] Work Phone: [facility] 03-08-2025 14:02-0400 Respiratory rate 18 /min Bibiana Aichholz [employer] Work Phone: [facility] 03-08-2025 14:02-0400 SaO2% (BldA) [Mass fraction] 98 % Bibiana Aichholz [employer] Work Phone: [facility] 03-08-2025 14:02-0400 Systolic blood pressure 110 mm[Hg] Bibiana Aichholz [employer] Work Phone: [facility] 06-03-2024 17:37-0500 Body height 160 cm Bibiana Aichholz [employer] Work Phone: [facility] 06-03-2024 17:37-0500 Body mass index (BMI) [Ratio] 22.85 kg/m2 Bibiana Aichholz [employer] Work Phone: [facility] 06-03-2024 17:37-0500 Body temperature 99.39 [degF] Bibiana Aichholz [employer] Work Phone: [facility] 06-03-2024 17:37-0500 Body weight 58.51 kg Bibiana Aichholz [employer] Work Phone: [facility] 06-03-2024 17:37-0500 Diastolic blood pressure 82 mm[Hg] Bibiana Aichholz [employer] Work Phone: [facility] 06-03-2024 17:37-0500 Heart rate 68 /min Bibiana Aichholz [employer] Work Phone: [facility] 06-03-2024 17:37-0500 Respiratory rate 18 /min Bibiana Aichholz [employer] Work Phone: [facility] 06-03-2024 17:37-0500 SaO2% (BldA) [Mass fraction] 97 % Bibiana Aichholz [employer] Work Phone: [facility] 06-03-2024 17:37-0500 Systolic blood pressure 112 mm[Hg] Bibiana Deckerz [employer] Work Phone: [facility] 04-15-2024 15:37-0400 Body height 160 cm Bibianaarslan Schwabholz [employer] Work Phone: [facility] 04-15-2024 15:37-0400 Body mass index (BMI) [Ratio] 22.71 kg/m2 Bibiana Zaheerholz [employer] Work Phone: [facility] 04-15-2024 15:37-0400 Body temperature 97.81 [degF] Bibianaarslan Deckerz [employer] Work Phone: [facility] 04-15-2024 15:37-0400 Body weight 58.15 kg Bibianaarslan Deckerz [employer] Work Phone: [facility] 04-15-2024 15:37-0400 Diastolic blood pressure 76 mm[Hg] Bibiana Zaheerholz [employer] Work Phone: [facility] 04-15-2024 15:37-0400 Heart rate 57 /min Bibiana Zaheerholz [employer] Work Phone: [facility] 04-15-2024 15:37-0400 Respiratory rate 20 /min Bibiana Zaheerholz [employer] Work Phone: [facility] 04-15-2024 15:37-0400 SaO2% (BldA) [Mass fraction] 99 % Bibiana Zaheerholz [employer] Work Phone: [facility] 04-15-2024 15:37-0400 Systolic blood pressure 118 mm[Hg] Bibiana Bienvenidohholz [employer] Work Phone: [facility] 04-13-2024 16:02-0400 Body mass index (BMI) [Ratio] 22.92 kg/m2 Nessa ALEXIS Work Phone: [facility] 04-13-2024 16:02-0400 Body weight 58.7 kg Nessa ALEXIS Work Phone: [facility] 04-13-2024 16:02-0400 Diastolic blood pressure 70 mm[Hg] Nessa ALEXIS Work Phone: [facility] 04-13-2024 16:02-0400 Systolic blood pressure 120 mm[Hg] Nessa ALEXIS Work Phone: [facility] 04-07-2024 10:20-0400 SaO2% (BldA) [Mass fraction] 98 % [facility] 04-07-2024 10:00-0400 Diastolic blood pressure 54 mm[Hg] Angelica [facility]anda [facility] 04-07-2024 10:00-0400 Systolic blood pressure 100 mm[Hg] Angelica [facility]anda [facility] 04-07-2024 08:25-0400 Body height 160 cm Angelica [facility]anda [facility] 04-07-2024 08:25-0400 Body mass index (BMI) [Ratio] 21.26 kg/m2 Angelica [facility]anda DO [facility] 04-07-2024 08:25-0400 Body temperature 97.81 [degF] Angelica Aranda DO [facility] 04-07-2024 08:25-0400 Body weight 54.43 kg Angelica Aranda DO [facility] 04-07-2024 08:25-0400 Heart rate 60 /min Angelica Aranda DO [facility] 04-07-2024 08:25-0400 Respiratory rate 18 /min Angelica [facility]anda DO [facility] 08-26-2023 15:40-0500 Body mass index (BMI) [Ratio] 24.27 kg/m2 Migel Moriah DO Work Phone: [facility] 08-26-2023 15:40-0500 Body weight 62.14 kg Miegl Moriah DO Work Phone: [facility] 08-26-2023 15:40-0500 Diastolic blood pressure 68 mm[Hg] Migel Moriah DO Work Phone: [facility] 08-26-2023 15:40-0500 Systolic blood pressure 110 mm[Hg] Migel Omriah DO Work Phone: [facility] 05-10-2022 11:20-0400 Body height 160.02 cm Nenita Goyalault Other [facility] Other 05-10-2022 11:20-0400 Body mass index (BMI) [Ratio] 20.19 kg/m2 Nenita Goyalault Other [facility] Other 05-10-2022 11:20-0400 Body temperature 98 [degF] Nenita Goyalault Other [facility] Other 05-10-2022 11:20-0400 Body weight 51.71 kg Nenita Lee Other [facility] Other 05-10-2022 11:20-0400 Respiratory rate 18 /min Nenita Goyalault Other [facility] Other 05-10-2022 11:20-0400 SaO2% (BldA) [Mass fraction] 99 % Nenita Goyalault Other [facility] Other Encounters Encounter Date Encounter Type Care Provider Facility Start: 03-24-2025 End: 03-24-2025 Bamboo flowsheet Migel Moriah DO Work Phone: [facility] Kimberley ARREGUIN Start: 03-24-2025 End: 03-24-2025 Bamboo flowsheet Migel Harriso DO Work Phone: [facility]REGU[facility] Start: 03-24-2025 End: 03-24-2025 Office outpatient visit 15 minutes Migel Moriah DO Work Phone: [facility] ARREGUIN Comment on above: Pelvic pain in femal e; Breakthrough bleeding with IUD; Menorrhagia with regular cycle Start: 03-08-2025 End: 03-08-2025 Bamboo flowsheet Bibianaarslan Matias [employer]HER Work Phone: [facility] Start: 03-08-2025 End: 03-08-2025 Bamboo flowsheet Bibiana Polly [employer] Work Phone: [facility] Start: 03-08-2025 End: 03-08-2025 Clinisync Result Encounter Bibiana Matias [employer] Work Phone: [facility] Unsolicited Start: 03-08-2025 End: 03-08-2025 Office outpatient visit 25 minutes Bibiana Polly [employer] Work Phone: [facility] Comment on above: Bipolar affective di sorder, current episode manic, current episode severity unspecified (HCC) (Primary Dx); Dehydration; Nausea and vomiting, unspecified vomiting type; Anxiety Start: 03-08-2025 End: 03-08-2025 ambulatory BIBIANA AICHHOLZ Not Available Start: 06-03-2024 End: 06-03-2024 Office outpatient visit 25 minutes Bibiana Polly [employer] Work Phone: [facility] Comment on above: Dehydration (Primary Dx); Nausea and vomiting, unspecified vomiting type; Diarrhea, unspecified type Start: 06-03-2024 End: 06-03-2024 ambulatory BIBIANA AICHHOLZ Not Available Start: 06-03-2024 End: 06-03-2024 Bamboo flowsheet Bibiana Bienvenidohholz [employer] Work Phone: [facility] Start: 06-03-2024 End: 06-03-2024 Bamboo flowsheet Bibiana Schwabkasey [employer] Work Phone: [facility] Start: 04-15-2024 End: 04-15-2024 Office outpatient visit 25 minutes Bibiana Schwabaksey [employer] Work Phone: [facility] Comment on above: RB (rectal bleeding) (Primary Dx); Bipolar affective disorder, current episode manic, current episode severity unspecified ([facility]/HCC) Start: 04-15-2024 End: 04-15-2024 ambulatory BIBIANA SCHWABKASEY Not Available Start: 04-15-2024 End: 04-15-2024 Bamboo flowsheet Bibiana Schwabkasey [employer]HER Work Phone: [facility] Start: 04-15-2024 End: 04-15-2024 Bamboo flowsheet Bibiana Schwabkasey [employer] Work Phone: [facility] Start: 04-13-2024 End: 04-13-2024 Patient encounter procedure Nessa ALEXIS Work Phone: [facility] Work Phone: Start: 04-13-2024 End: 04-13-2024 Periodic preventive med est patient 18-39 yrs Nessa ALEXIS Work Phone: [facility] Comment on above: Well woman exam with routine gynecological exam Start: 04-13-2024 End: 04-13-2024 ambulatory NESSA PIEDRA Not Available Start: 04-13-2024 End: 04-13-2024 Bamboo flowsheet Nessa ALEXIS Work Phone: [facility] Start: 04-13-2024 End: 04-17-2024 Bamboo flowsheet Nessa ALEXIS Work Phone: [facility] Start: 04-13-2024 End: 04-17-2024 Clinisync Result Encounter Generic External Data Provider [facility] Unsolicited Start: 04-07-2024 End: 04-07-2024 Clinisync Result Encounter Generic External Data Provider [facility] Unsolicited Start: 04-07-2024 End: 04-07-2024 Clinisync Result Encounter Generic External Data Provider [facility] Unsolicited Start: 04-07-2024 End: 04-07-2024 Emergency department patient visit ANGELICA MORROW [facility] Comment on above: Abdominal pain, left lower quadrant (Primary Dx) Start: 08-26-2023 End: 08-26-2023 Office outpatient visit 10 minutes Migel Major DO Work Phone: [facility] Comment on above: Intrauterine device surveillance Start: 01-23-2023 End: 01-24-2023 ambulatory [facility] Facility:[facility] Start: 01-23-2023 End: 01-23-2023 Patient encounter procedure [facility] Start: 12-06-2022 ambulatory [facility] Facility:[facility] Wheeler Start: 09-18-2022 End: 09-19-[address] MIGEL MAJOR . Facility:[facility] Start: 08-20-2022 Encounter for preprocedural laboratory examination CHANTAL Lopez [facility] Start: 08-17-2022 End: 08-17-2022 ambulatory DESTINEE MATIAS Facility:[facility] Start: 08-15-2022 End: 08-16-2022 ambulatory COMPUTER PROGRAMMER BIBIANA POLLY Facility:[facility] Start: 08-15-2022 End: 08-16-2022 Encounter for preprocedural laboratory examination COMPUTER PROGRAMMER BIBIANA POLLY Facility:[facility] Start: 07-27-2022 End: 07-28-2022 ambulatory BLUM H FAWWAD Facility:[facility] Start: 07-17-2022 End: 07-17-2022 ambulatory BLUM H FAWWAD Facility:[facility] Start: 07-11-2022 End: 07-12-2022 ambulatory BLUM H FAWWAD Facility:[facility] Start: 05-10-2022 End: 05-10-2022 ambulatory Nenita Lee Other [facility] Other Start: 05-10-2022 Office outpatient vi sit 25 minutes Nenita Lee [facility] Start: 04-18-2022 End: 04-18-2022 ambulatory ROBINSON DINH . Facility: Start: 01-22-2022 End: 01-22-2022 ambulatory COMPUTER PROGRAMMER BIBIANA POLLY Facility: Procedures Date Procedure Procedure Detail Performing Clinician Start: 03-24-2025 Urine test visual color cmprsn meths Migel Moriah DO Work Phone: Start: 03-08-2025 ALL CBC WITH AUTO DIFF Bibiana Matias [employer] Work Phone: Start: 04-13-2024 IGP,APTIMA HPV,AGE GDLN Nessa Piedra PA Work Phone: Start: 04-07-2024 Ct abdomen & pelvis w/contrast material Angelica Aranda DO Work Phone: Start: 04-07-2024 MHPT TRICHOMONAS/WET PREP Generic External Data Provider Start: 04-07-2024 End: 04-07-2024 Smr prim src wet mount nfct agt Angelica Aranda DO Work Phone: Start: 04-07-2024 Urnls dip stick/tabl et rgnt auto w/o microscopy Angelica Aranda DO Work Phone: Start: 04-07-2024 Comprehensive metabo lic panel Angelica Aranda DO Work Phone: Start: 04-04-2023 Microscopic observat ion [Identifier] in Cervix by Cyto stain Bibiana Matias [employer]HER Work Phone: Start: 08-17-2022 Colonoscopy Glendy MARTIN M Plan of Treatment Date Care Activity Detail Author Start: 07-16-2029 DTaP/Tdap/Td vaccine (8 - Td or Tdap) DTaP/Tdap/Td vaccine (8 - Td or Tdap) [facility] Start: 04-04-2026 Screening for malign ant neoplasm of cervix [facility] Start: 04-21-2025 End: 04-21-2025 Patient encounter procedure [facility] Start: 04-13-2025 End: 04-13-2025 Patient encounter procedure 04/13/2025 11:30 AM EDT Office Visit [facility] [address] [place] [address] Polly Bibiana, [employer]HER [address] [place] [address] [facility] Start: 03-25-2025 End: 03-25-2025 Professional / ancillary services management 03/25/2025 3:00 PM EDT Ancillary Procedure ALBERT ARREGUIN [address] [place] [address] [place] [id number] [facility] Start: 03-24-2025 End: 03-24-2026 aPTT in Blood by Coagulation assay APTT Lab Routine Menorrhagia with regular cycle Expected: 03/24/2025 (Approximate), Expires: 03/24/2026 [facility] Comment on above: Expected: 03/24/2025 (Approximate), Expires: 03/24/2026 Start: 03-24-2025 End: 09-24-2025 US Pelvis transvaginal US pelvis transvaginal Imaging Routine Breakthrough bleeding with IUD Expected: 03/24/2025, Expires: 09/24/2025 [facility] Work Phone: Comment on above: Expected: 03/24/2025 , Expires: 09/24/2025 Start: 03-08-2025 End: 03-08-2026 Basic metabolic 1998 panel - Serum or Plasma Basic metabolic panel Lab Routine Dehydration Expected: 03/08/2025 (Approximate), Expires: 03/08/2026 [facility] Work Phone: Comment on above: Expected: 03/08/2025 (Approximate), Expires: 03/08/2026 Start: 03-08-2025 End: 03-08-2026 CBC W Auto Differential panel - Blood CBC and differential Lab Routine Dehydration Expected: 03/08/2025 (Approximate), Expires: 03/08/2026 [facility] Comment on above: Expected: 03/08/2025 (Approximate), Expires: 03/08/2026 Start: 03-08-2025 End: 03-08-2026 Magnesium [Mass/volume] in Serum or Plasma Magnesium Lab Routine Dehydration Expected: 03/08/2025 (Approximate), Expires: 03/08/2026 [facility] Comment on above: Expected: 03/08/2025 (Approximate), Expires: 03/08/2026 Start: 03-08-2025 End: 03-08-2025 Patient encounter procedure 03/08/2025 2:00 PM EDT Office Visit [facility] [address] [place] [address] Bibiana Matias, [employer] BRUSHER [address] [place] [phone] Arrived [facility] Comment on above: Arrived Start: 2024 Screening for malign ant neoplasm of cervix HPV/Cotest [facility] Start: 07-16-2024 End: 07-16-2024 Patient encounter procedure 07/16/2024 3:00 PM EST [facility] [address] [place] [address] Bibiana Matias, [employer] BRUSHER [address] [place] [phone] [facility] Start: 06-03-2024 End: 06-03-2024 Patient encounter procedure 06/03/2024 5:30 PM EST Office Visit [facility] [address] [place] [address] Bibiana Matias, [employer] BRUSHER [address] [place] [phone] Arrived [facility] Comment on above: Arrived Start: 04-15-2024 End: 04-15-2024 Patient encounter procedure [facility] Comment on above: Arrived Start: 04-13-2024 End: 04-13-2024 Patient encounter procedure [facility] Comment on above: Arrived Start: 03-29-2024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 health?? And stress At this point we discussed next step, her labs and CT scan no acute findings Will refer to GI for second opinion Associated Problem(s): Bipolar affective disorder, current episode manic (CMS/[facility]) Continue with psych for med mgmt Images from the original note were not included. Padmaja Duffy is a 28 y.o. female presents with chief complaint of No chief complaint on file. HPI: Here for a recheck: Mental health: is still working with psych still doesn't feel meds are where they need to be Er a few weeks ago: rectal bleeding again; she woke up with some lower abd pain more middle, no NV, she went to ER at [facility]. See CT scan labs etc. Had colonoscopy within the last year. SUBJECTIVE: MEDICATIONS: Current Outpatient Medications Medication Instructions lurasidone (LATUDA) 60 mg, Oral, Daily with breakfast vilazodone (VIIBRYD) 20 mg, Oral, Daily with breakfast ALLERGIES: Allergies Allergen Reactions Nitrofurantoin GI intolerance Sulfamethoxazole-Trimethoprim Unknown REVIEW OF SYMPTOMS: Review of Systems Constitutional: Negative for appetite change, chills and fever. HENT: Negative for congestion, ear pain and sore throat. Eyes: Negative for pain, discharge, redness and visual disturbance. Respiratory: Negative for cough, shortness of breath and wheezing. Cardiovascular: Negative for chest pain, palpitations and leg swelling. Gastrointestinal: Positive for abdominal pain and anal bleeding. Negative for blood in stool, constipation, diarrhea, nausea and vomiting. Genitourinary: Negative for difficulty urinating, dysuria and frequency. Musculoskeletal: Negative for arthralgias, back pain, joint swelling and myalgias. Skin: Negative for rash and wound. Neurological: Negative for dizziness, tremors, seizures, syncope and headaches. Psychiatric/Behavioral: Negative for behavioral problems, self-injury and suicidal ideas. The patient is nervous/anxious. Mood disorder Hematological: Does not bruise/bleed easily. Endocrine: Negative for polydipsia, polyphagia and polyuria. Allergic/Immunologic: Negative for environmental allergies and food allergies. PAST MEDICAL HISTORY History reviewed. No pertinent past medical history. History reviewed. No pertinent surgical history. family history is not on file. OBJECTIVE: Visit Vitals BP 118/76 (BP Location: Left arm, Patient Position: Sitting, BP Cuff Size: Adult long) Pulse 57 Temp 97.8 F (Temporal) Resp 20 Ht 5' 3 Wt 128 lb 3.2 oz SpO2 99% BMI 22.71 kg/m OB Status No Periods Smoking Status Never BSA 1.61 m Physical Exam Vitals and nursing note reviewed. Constitutional: General: She is not in acute distress. Appearance: Normal appearance. HENT: Head: Normocephalic and atraumatic. Right Ear: External ear normal. Left Ear: External ear normal. Nose: Nose normal. Mouth/Throat: Mouth: Mucous membranes are moist. Eyes: Extraocular Movements: Extraocular movements intact. Conjunctiva/sclera: Conjunctivae normal. Cardiovascular: Rate and Rhythm: Normal rate and regular rhythm. Pulses: Normal pulses. Heart sounds: Normal heart sounds. Pulmonary: Effort: Pulmonary effort is normal. Breath sounds: Normal breath sounds. Abdominal: General: Bowel sounds are normal. There is no distension. Palpations: Abdomen is soft. There is no mass. Tenderness: There is no abdominal tenderness. Musculoskeletal: General: Normal range of motion. Cervical back: Normal range of motion and neck supple. Skin: General: Skin is warm and dry. Capillary Refill: Capillary refill takes 2 to 3 seconds. Findings: No rash. Neurological: General: No focal deficit present. Mental Status: She is alert and oriented to person, place, and time. Psychiatric: Mood and Affect: Mood normal. Behavior: Behavior normal. Thought Content: Thought content normal. Judgment: Judgment normal. ASSESSMENT AND PLAN: No follow-ups on file. Problem List Items Addressed This Visit Bipolar affective disorder, current episode manic (CMS/HCC) Continue with psych for med mgmt RB (rectal bleeding) - Primary Still occurring, no clear etiology. It was felt possibly related to mental health?? And stress At this point we discussed next step, her labs and CT scan no acute findings Will refer to GI for second opinion Relevant Orders Ambulatory referral to Gastroenterology documented in this encounter [facility] 04-13-2024 History of Presen t illness Narrative Reason for Appointment: Patient ID: Padmaja Duffy is a 28 y.o. female who presents for Well Women Visit Patient presents today for Annual Exam. MEDICATIONS Current Outpatient Medications Medication Instructions lurasidone (LATUDA) 60 mg, Oral, Daily with breakfast vilazodone (VIIBRYD) 20 mg, Oral, Daily with breakfast ALLERGIES Allergies Allergen Reactions Nitrofurantoin GI intolerance Sulfamethoxazole-Trimethoprim Unknown PROBLEMS Active Ambulatory Problems Diagnosis Date Noted Dyspareunia in female 01/01/2023 Missed period 01/01/2023 PCB (post coital bleeding) 01/01/2023 Postprocedural hemorrhage of a digestive system organ or structure following a digestive system procedure 01/01/2023 Dysmenorrhea 01/01/2023 Bipolar affective disorder, current episode manic (CMS/HCC) 10/14/2023 RB (rectal bleeding) 10/14/2023 Resolved Ambulatory Problems Diagnosis Date Noted No Resolved Ambulatory Problems No Additional Past Medical History HISTORY PAST MEDICAL HISTORY SOCIAL HISTORY History reviewed. No pertinent past medical history. Social History Tobacco Use Smoking status: Never Smokeless tobacco: Never Vaping Use Vaping status: Never Used Substance Use Topics Alcohol use: Never Comment: caffeine: 1-2 cups per day Drug use: Never FAMILY HISTORY No family history on file. SURGICAL HISTORY History reviewed. No pertinent surgical history. REVIEW OF SYSTEMS Review of Systems: Review of Systems All other systems reviewed and are negative. OBJECTIVE Objective: Physical Exam Constitutional: Appearance: Normal appearance. She is well-developed. Genitourinary: Vulva normal. Right Adnexa: not tender and no mass present. Left Adnexa: not tender and no mass present. No cervical discharge. Breasts: Breasts are soft. Right: Normal. Left: Normal. HENT: Head: Normocephalic. Nose: Nose normal. Mouth/Throat: Mouth: Mucous membranes are moist. Cardiovascular: Rate and Rhythm: Normal rate and regular rhythm. Pulmonary: Effort: Pulmonary effort is normal. Breath sounds: Normal breath sounds. Abdominal: General: Bowel sounds are normal. There is no distension. Palpations: Abdomen is soft. Tenderness: There is no abdominal tenderness. There is no guarding or rebound. Musculoskeletal: General: No swelling. Normal range of motion. Cervical back: Normal range of motion. Right lower leg: No edema. Left lower leg: No edema. Neurological: General: No focal deficit present. Mental Status: She is alert and oriented to person, place, and time. Skin: General: Skin is warm and dry. Psychiatric: Mood and Affect: Mood normal. Behavior: Behavior normal. Vitals and nursing note reviewed. Exam conducted with a infusion rn present. Vitals: Estimated body mass index is 22.92 kg/m as calculated from the following: Height as of 10/14/23: 5' 3 . Weight as of this encounter: 129 lb 6.4 oz. BP: 120/70 No LMP recorded. (Menstrual status: No Periods). ASSESSMENT & PLAN ICD-10-CM 1. Well woman exam with routine gynecological exam Z01.419 Pap Smear Annual Exam: Patient presents today for an annual exam. Patient states she is doing well and has no complaints. Pap was obtained without difficulty. Follow Up: Patient is to return in one year for annual unless needed otherwise. Documented by Melinda Gutierrez LPN on behalf of: REUBEN Bernal documented in this encounter [facility] 08-26-2023 History of Presen t illness Narrative Reason for Appointment: Patient ID: Padmaja Duffy is a 27 y.o. female who presents [...] nursing note reviewed. Exam conducted with a infusion rn present. Vitals: Estimated body mass index is [...] by Muna Vazquez LPN on behalf of: Migel Major DO documented in this encounter [facility] 05-10-2022 Evaluation note Encounter Date Diagnosis Assessment [...] treatment. Education handout given on gastro diet [facility] Other Evaluation + Plan note No data available for this section [facility] Evaluation note* Diagnosis Intrauterine device surveillance documented in this encounter [facility] HealthcareEvaluation note* Diagnosis Bipolar affective disorder, current episode manic, current episode severity unspecified (CMS/HCC)- Primary RB (rectal bleeding) Hemorrhage of rectum and anus RB (rectal bleeding)- Primary Hemorrhage of rectum and anus Bipolar affective disorder, current episode manic, current episode severity unspecified (CMS/HCC) Dehydration- Primary Nausea and vomiting, unspecified vomiting type Diarrhea, unspecified type documented in this encounter [facility] HealthcareEvaluation note* Diagnosis Well woman exam with routine gynecological exam Routine gynecological examination documented in this encounter [facility] HealthcareEvaluation note* Diagnosis RB (rectal bleeding)- Primary Hemorrhage of rectum and anus Bipolar affective disorder, current episode manic, current episode severity unspecified ([facility]/HCC) documented in this encounter [facility] HealthcareEvaluation note* Diagnosis Abdominal pain, left lower quadrant- Primary [facility] Diagnosis Bipolar affective disorder, current episode manic, current episode severity unspecified (HCC)- Primary RB (rectal bleeding) Hemorrhage of rectum and anus RB (rectal bleeding)- Primary Hemorrhage of rectum and anus Bipolar affective disorder, current episode manic, current episode severity unspecified (HCC) Dehydration- Primary Nausea and vomiting, unspecified vomiting type Diarrhea, unspecified type Bipolar affective disorder, current episode manic, current episode severity unspecified (HCC)- Primary Dehydration Nausea and vomiting, unspecified vomiting type Anxiety Anxiety state, unspecified documented in this encounter [facility] HealthcareEvaluation note* Diagnosis Bipolar affective disorder, current episode manic, current episode severity unspecified (HCC)- Primary RB (rectal bleeding) Hemorrhage of rectum and anus RB (rectal bleeding)- Primary Hemorrhage of rectum and anus Bipolar affective disorder, current episode manic, current episode severity unspecified (HCC) Dehydration- Primary Nausea and vomiting, unspecified vomiting type Diarrhea, unspecified type Bipolar affective disorder, current episode manic, current episode severity unspecified (HCC)- Primary Dehydration Nausea and vomiting, unspecified vomiting type Anxiety Anxiety state, unspecified Pelvic pain in female Unspecified symptom associated with female genital organs Breakthrough bleeding with IUD Menorrhagia with regular cycle documented in this encounter [facility] HealthcareHistory general Narrative - Reported* Type Description Date Medical History Recurrent UTI's Medical History Depression Surgical History oral surgery [facility] Other Hospital Discharge instructions No data available for this section [facility] Progress note No data available for this section [facility] Reason for referral (narrative)* Consultation (Routine) - Pending Review Specialty Diagnoses / Procedures Referred By Preet t Referred To Contact Gastroenterology Diagnoses RB (rectal bleeding) Procedures OK OFFICE/OUTPATIENT NEW HIGH MDM 60 MINUTES Bibiana Matias, SHAUN [address] [place] [address] Mayte DesouzaEvelynDO [address] [facility] [place] [address] Referral ID Status Reason Start Date Expiration Date Visits Requested Visits Authorized [id number] Pending Review Specialty Services Required 04/15/2024 10/12/2024 1 1 [facility] Summary Purpose Family History No Family History Records FoundNo Family History Records FoundNo Family History Records FoundNo Family History Records Found Advance Directives No Advanced Directives Records FoundNo Advanced Directives Records FoundNo Advanced Directives Records FoundNo Advanced Directives Records Found Additional Source Comments REASON FOR VISIT (unrecogniz ed section and content) Reason Comments Contraception Mirena 07/01/2023 Reason Comments Well Women Visit Reason Comments Abdominal Pain Pt states she starte d with LLQ pain that woke her from her sleep yesterday morning. Pain is intermittent and progressively worsening over last day. She states she had a small, hard BM this morning after straining. She did notice bright red blood on toilet paper and a small amount in toilet. Pt states last BM prior to this AM was approx 1 week ago. Reason Comments Mental Health Problem Reason Comments Check Placement INFORMATION SOURCE (unrecogn ized section and content) DATE CREATED AUTHOR 10/24/2022 [facility] DATE CREATED AUTHOR AUTHOR'S ORGANIZ ATION 01/24/2023 [facility] DATE CREATED AUTHOR AUTHOR'S ORGANIZ ATION 04/13/2024 [facility] DATE CREATED AUTHOR AUTHOR'S ORGANIZ ATION 03/09/2025 [facility] EPIC Patient Care team informatio n (unrecognized section and content) Deputy Building Guard Relationship Specialty Start Date End Date Zac Jarquin MD PCP - General Family Medicine 02/12/23 Bibiana Matias NP [address] [place] [address] Referring Physician Nurse Practitioner 02/12/23 Deputy Building Guard Relationship Specialty Start Date End Date Zac Jarquin MD [address] [place] [address] PCP - General Family Medicine 02/12/23 Bibiana Matias NP [address] [place] [address] Referring Physician Nurse Practitioner 02/12/23 Deputy Building Guard Relationship Specialty Start Date End Date Zac Jarquin MD [address] [place] [address] PCP - General Family Medicine 02/12/23 Bibiana Matias NP [address] [place] [address] Referring Physician Nurse Practitioner 02/12/23 Deputy Building Guard Relationship Specialty Start Date End Date Zac Jarquin MD [address] [place] [address] PCP - General Family Medicine 02/12/23 Bibiana Matias NP [address] [place] [address] Referring Physician Nurse Practitioner 02/12/23 Deputy Building Guard Relationship Specialty Start Date End Date Zac Jarquin MD [address] [place] [address] PCP - General Family Medicine 02/12/23 Bibiana Matias NP [address] [place] [address] Referring Physician Nurse Practitioner 02/12/23 Deputy Building Guard Relationship Specialty Start Date End Date Zac Jarquin MD [address] [place] [address] PCP - General Family Medicine 02/12/23 Bibiana Matias NP [address] [place] [address] Referring Physician Nurse Practitioner 02/12/23 Deputy Building Guard Relationship Specialty Start Date End Date Zac Jarquin MD [address] [place] [address] PCP - General Family Medicine 02/12/23 Bibiana Matias NP [address] [place] [address] Referring Physician Nurse Practitioner 02/12/23 Deputy Building Guard Relationship Specialty Start Date End Date Zac Jarquin MD [address] [place] [address] PCP - General Family Medicine 02/12/23 Bibiana Matias NP [address] [place] [address] Referring Physician Nurse Practitioner 02/12/23 Deputy Building Guard Relationship Specialty Start Date End Date Bibiana aMtias, DIRECTOR OF LAND ACQUISITION - SCRATCH BRUSHER [address] [place] [address] PCP - General Nurse Practitioner 11/13/22 Deputy Building Guard Relationship Specialty Start Date End Date Zac Jarquin MD [address] [place] [address] PCP - General Family Medicine 02/12/23 Bibiana Matias NP [address] [place] [address] Referring Physician Nurse Practitioner 02/12/23 Deputy Building Guard Relationship Specialty Start Date End Date Zac Jarquin MD [address] [place] [address] PCP - General Family Medicine 02/12/23 Bibiana Matias NP [address] [place] [address] Referring Physician Nurse Practitioner 02/12/23 Deputy Building Guard Relationship Specialty Start Date End Date Zac Jarquin MD [address] [place] [address] PCP - General Family Medicine 02/12/23 Bibiana Matias NP [address] [place] [address] Referring Physician Nurse Practitioner 02/12/23 Deputy Building Guard Relationship Specialty Start Date End Date Zac Jarquin MD [address] [place] [address] PCP - General Family Medicine 02/12/23 Bibiana Matias NP [address] [place] [address] Referring Physician Nurse Practitioner 02/12/23 Scheduled Active and Recently Administ ered Medications (unrecognized section and content) Medication Order 04/05/2024 04/06/2024 04/07/2024 fentaNYL (SUBLIMAZE) injection 25 mcg (COMPLETED) 25 mcg, IntraVENous, ONCE, 1 dose, On Sat04/07/24 at 0900, If oral and IV narcotics ordered, use oral first and only use IV if oral is ineffective or cannot take oral. Do Not give oral and IV within 1 hour of each other unless specifically ordered. 0949 (Given - Provid er: Jessy Smith RN) ondansetron (ZOFRAN) injection 4 mg (COMPLETED) 4 mg, IntraVENous, ONCE, 1 dose, On Sat04/07/24 at 0900 0948 (Given - Provid er: Jessy Smith RN) PRN Medication Order 04/05/2024 04/06/2024 04/07/2024 iopamidol (ISOVUE-370) 76 % injection 75 mL (COMPLETED) 75 mL, IntraVENous, IMG ONCE PRN, 1 dose, Starting on Sat04/07/24 at 1156, Until Sat04/07/24 at 1208, Other 1208 (Given - Provid er: Snehal Rowe) FOR RECORDS PERTAINING TO PATIENTS WHO ARE [...] BE BASED ON THE PRIMARY CLINICAL RECORDS. [facility]. provides no warranty or guarantee of the accuracy or completeness of information in this document.
[2025-03-24 12:54] LABS: Hematocrit 44.0 % (36.0-48.0); Hemoglobin 15.3 g/dL (12.0-16.0); Immature Granulocytes Abs Auto 0.02 10^3/uL (0.00-0.03); Immature Granulocytes Pct Auto 0.3 % (0.0-0.5); Lymphocytes Absolute Auto 1.2 10^3/uL (1.2-3.8); Mean Corpuscular HGB Conc 34.8 g/dL (29.9-35.2); Mean Corpuscular Hemoglobin 31.9 pg (26.7-34.0); Mean Corpuscular Volume 91.9 fL (81.0-99.0); Platelet Count 233 10^3/uL (150-450); Red Blood Count 4.79 10^6/uL (4.20-5.40); White Blood Count 6.1 10^3/uL (4.0-11.0)
[2025-03-24 13:12] LABS: INR 1.03; Partial Thromboplastin Time 25.7 sec (22.3-36.2); Prothrombin Time 10.9 sec (9.0-11.6)
[2025-03-24 13:21] LABS: Thyroid Stimulating Hormone 1.484 uIU/mL (0.358-3.740)
== END 2025-03-24 12:29 | disposition home or self-care (01) ==
LOC: LAB 12:29
PROVIDERS: PCP Nurse Practitioner; Visit Provider Obstetrics & Gynecology
DX: N92.0 Excessive and frequent menstruation with regular cycle (principal)
CPT/HCPCS: 36415; 83036; 84439; 84443; 84702; 85025; 85610; 85730

== ENCOUNTER 2025-04-21 19:58 | Outpatient (REF) | payer OTHER, SELFPAY ==
--- OUTSIDE RECORDS SUMMARY | 2024-05-13 11:30 | XMS_ITS ---
Author Organization [employer] [facility] Address [address] [place] [address] Care Team Providers Care Ornamenter Hand Name Role Phone Christi Pemberton Primary Care Provider Steve Crowder Unavailable [phone] REASON FOR VISIT 1 month F/U virtual [...] needed (prn); Duration: 30 days 05/27/2023 Not-Taking Social History Sex Assigned At : Social History Observation Description Sex Assigned At Female Encounters Encounter Location Date Provider Diagnosis [facility] [address] [facility] [address] [facility] [place] [address] 2023 Steve Crowder Plan Of Treatment No Information Progress Notes * PRATIK CORONEL MDOB:1995 (29 yo F)Acc No.[id number]:05/13/2024 Behavioral Health Patient: PRATIK EUBANKS Provider: JANEL Wong :1995 A ge:28 Y S ex:Female Date:05/13/2024 Address:[address] [place] [address] [address] [facility] Pcp:Christi Pemberton Subjective: * Chief Complaints: * 1 . [...] * Electronic signature of JANEL Neely on 04/21/2025 at 03:25 PM EDT Sign off status: Pending * Provider: JANEL Wong Date: 1 Generated for Rohit patel/Jami/eTransmitting on: 0 04/21/2025 03:25 PM EDT
--- OUTSIDE RECORDS SUMMARY | 2025-04-13 09:00 | XMS_ITS ---
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 Name Role Phone Christi Pemberton Primary Care Provider [phone] REASON FOR VISIT F/U Medications Medication SIG (Take, Route, Frequency, Duration) Notes Start Date End Date Status Sertraline HCl 50 MG 1 tablet Orally Once a day Not-Taking Lurasidone HCl 60 MG 1 tablet in the evening with food Orally Once a day; Duration: 30 days 05/27/2023 Not-Taking Ondansetron 4 MG Oral; Duration: 7 Days Active Vilazodone HCl 20 MG Oral; Duration: 30 Days Active hydrOXYzine Pamoate 25 MG Oral; Duration: 10 Days Active Vilazodone HCl 10 MG 1 tablet with food Orally Once a day; Duration: 30 days Take with 20 mg tablet for 30 mg total 04/16/2024 Not-Taking Propranolol HCl 40 MG 1 tablet Orally twice a day (bid) as needed (prn); Duration: 30 day(s) 05/27/2023 Not-Taking Jolessa 0.15-0.03 MG 1 tablet Orally Once a day Not-Taking QUEtiapine Fumarate 25 MG 1 tablet at bedtime Orally Once a day; Duration: 30 day(s) 07/16/2023 Not-Taking hydrOXYzine Pamoate 25 MG 1 capsule Orally three times a day (tid) as needed (prn); Duration: 30 days 05/27/2023 Not-Taking Vilazodone HCl 20 MG 1 tablet with food Orally Once a day; Duration: 30 days 01/21/2024 Not-Taking Social History Sex Assigned At : Social History Observation Description Sex Assigned At Female Encounters Encounter Location Date Provider [address] [place] [address] 04/13/2025 Christi Pemberton Plan Of Treatment No Information Progress Notes * PRATIK CORONEL MDOB:1995 (29 yo F)Acc No.[id number]:04/13/2025 Behavioral Health Patient: Shankar SYDNITYREE PRATIK Monterroso Provider: Nishant Pemberton CNP :1995 A ge:29 Y S ex:Female Date:04/13/2025 Address:[address] [place], [place] [address] Demetrio [facility] Subjective: * Chief Complaints: * 1 . BH F/U. * Medical History: * Medications: T aking hydrOXYzine Pamoate 25 MG Capsule Oral , Taking Vilazodone HCl 20 MG Tablet Oral , Taking Ondansetron 4 MG Tablet Disintegrating Oral , Not-Taking/PRN Lurasidone HCl 60 MG Tablet 1 tablet in the evening with food Orally Once a day , Not- Taking/PRN Vilazodone HCl 20 MG Tablet 1 tablet with food Orally Once a day , Not- Taking/PRN Propranolol HCl 40 MG Tablet 1 tablet Orally twice a day (bid) as needed (prn) , Not-Taking/PRN Vilazodone HCl 10 MG Tablet 1 tablet with food Orally Once a day , Notes to Pharmacist: Take with 20 mg tablet for 30 mg total, Not-Taking/PRN hydrOXYzine Pamoate 25 MG Capsule 1 [...] Treatment: * Images: * Electronic signature of AMANDA Godoy on 04/21/2025 at 03:25 PM EDT Sign off status: Pending * Provider: Nishant Pemberton, DESTINEE Date: 0 04/13/2025 Generated for Rohit patel/Jami/Иван on: 0 04/21/2025 03:25 PM EDT
--- OUTSIDE RECORDS SUMMARY | 2025-04-21 15:30 | XMS_ITS | Encounter Summary ---
Author Organization [facility] Address [address] [place] [address] Care Team Providers Care Freezer Assistant Name Role Phone Zac Jarquin MD Primary Care Provider [phone] Bibiana Matias NP Unavailable [phone] Reason for Visit * Reason Comments Well Women Visit Encounter Details Date Type Department Care Team (Late st Contact Info) Description 04/21/2025 3:30 PM EDT Office Visit [facility] [address] [place] [address] Nessa Montaño PA [address] [place] [address] Well woman exam with routine gynecological exam Social History Tobacco Use Types Packs/Day Years [...] Never 03/08/2025 How often do you attend jainism or spiritism serv ices? Never 03/08/2025 Do you belong to any clubs o r organizations such as jainism groups, unions, fraternal or athletic groups, or [...] Recorded Patient Health Questionnaire-2 Score 2 10/14/2023 [facility] - Occupational [...] No 03/08/2025 Housing Stability Vital Sign Answer Agrrett e Recorded In the last 12 months, [...] place to sleep or slept in a fpc (including now)? No 10/14/2023 Housing Stability Vital Sign Answer Garrett e Recorded In the last 12 months, was t here a time when you were not able to pay the mortgage or rent on time? Yes 03/08/2025 In the past 12 months, how m any times have you moved where you were living? 1 03/08/2025 At any time in the past [address] [facility], were you homeless or living in a fpc (including now)? No 03/08/2025 Comments No Sex and Gender Information Value Date Recorded Sex Assigned at Not on file Legal Sex Female 7:26 PM EDT Gender Identity Not on file Sexual Orientation Not on file documented as of this encounter Last Filed Vital Signs Vital Sign Reading Time Taken Comments Blood Pressure 100/60 04/21/2025 3:52 PM EDT Pulse - - Temperature - - Respiratory Rate - - Oxygen Saturation - - Inhaled Oxygen Concentration - - Weight 63.6 kg (140 lb 4 oz) 04/21/2025 3:52 PM EDT Height - - Body Mass Index 24.84 06/03/2024 5:37 PM EST documented in this encounter Progress Notes * Elisa Thao NP - 04/21/2025 3:30 PM EDT Reason for Appointment: Patient ID: Padmaja Duffy is a 29 y.o. female who presents for Well Women Visit Patient presents today for Return OB appointment. MEDICATIONS Current Outpatient Medications Medication Instructions vilazodone (Viibryd) 20 MG tablet Start with [...] appearance. She is well-developed. Genitourinary: Vulva normal. Breasts: Breasts are soft. Right: Normal. Left: Normal. Cardiovascular: Rate and Rhythm: Normal rate and [...] nursing note reviewed. 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 Vitals: Estimated body mass index is 24.84 kg/m?? as calculated from the following: Height as of 06/03/24: 5' 3 . Weight as of this encounter: 140 lb 4 oz. BP: 100/60 No LMP recorded. (Menstrual status: IUD). ASSESSMENT & PLAN ICD-10-CM 1. Well woman exam with routine gynecological exam Z01.419 Pap Smear HPV DNA probe, amplified Annual Exam: Patient presents today for an annual exam. Patient states she is doing well and has no complaints. Pap was obtained without difficulty. Orders Placed This Encounter Procedures HPV DNA probe, amplified Follow Up: Patient is to return in one year for annual unless needed otherwise. Documented by Elisa Thao NP on behalf of: REUBEN Bernal documented in this encounter Plan of Treatment Upcoming Encounters Date Type Department Care Team (Late st Contact Info) Description 04/27/2026 3:30 PM EDT Procedure Visit [facility] [address] [place] [phone] Nessa Montaño PA [address] [place] [address] Scheduled Orders Name Type Priority Associated Diagnoses Orde r Schedule Pap Smear Pathology and Cytology Routine Well woman exam with routine gynecological exam Ordered: 04/21/2025 HPV DNA probe, amplified Microbiology Routine Well woman exam with routine gynecological exam Ordered: 04/21/2025 documented as of this encounter Procedures Procedure Name Priority Date/Time Associated Diagnosis Comments PAP SMEAR Routine 04/13/2024 12:00 AM EDT documented in this encounter Results * Pap Smear (04/13/2024 12:00 AM EDT) Swab Cervical swab / Unknown us Nessa [facility] CYTOLOGY ORDERABLES Final Re sult EXTERNAL LAB documented in this encounter Visit Diagnoses Diagnosis Well woman exam with routine gynecological exam Routine gynecological examination documented in this encounter Care Teams Freezer Assistant Relationship Specialty Start Date End Date Zac Jarquin MD PCP - General Family Medicine 02/12/23 Bibiana Matias NP Referring Physician Nurse Practitioner 02/12/23 documented as of this encounter
--- OUTSIDE RECORDS SUMMARY | 2025-04-21 20:01 | XMS_ITS | Clinical Summary ---
Author Organization [employer] s tem Address [id number] [place] [address] Care Team Providers Care Blow Machine Tender Starch Spraying Name Role Phone BienvenidocaronBibiana madsen APRN-CASE MANAGEMENT MANAGER Primary Care Provider Allergies Active Allergy Reactions [...] on file Insurance [employer] Care Teams Blow Machine Tender Starch Spraying Relationship Specialty Start Date End Date Bibiana Matias, PRODUCTION MATERIAL HANDLER-CASE MANAGEMENT MANAGER PCP - General Nurse Practitioner 05/16/21
--- OUTSIDE RECORDS SUMMARY | 2025-04-21 20:01 | XMS_ITS | CCD ---
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 HCG Screen, Blood Negative Normal NEG [facility] Comment on above: Result Comment: Spec imens with hCG levels near the threshold of the test (25 mIU/mL) may give a negative or indeterminate result. In such cases, another test should be performed with a new specimen in 48-72 hours. If early is suspected clinically in this setting, correlation with quantitative serum b-hCG level is suggested. [facility] has confirmed the use of plasma for this test. This has not been cleared or approved by the U.S. Food and Drug Administration. The FDA has determined that such clearance is not necessary. Performed By: #### C P, CDP, HCG #### [facility] [address] [place] [address] Horticultural Technical Officer: Marito Monroe MD Lactic Acidon 04-07-2024 Lactate (BldV) [Moles/Vol] 0.9 mmol/L 0.5 - 2.2 mmol/L [facility] Lactate [Moles/Vol] 0.9 mmol/L Normal 0.5-2.2 [facility] Comment on above: Performed By: #### L ACTIC #### [facility] [address] [place] [address] Horticultural Technical Officer: Marito Monroe MD [facility] TRICHOMONAS/WET PREPon 04-07-2024 [facility] TRICHOMONAS/WET PREP Specimen Description .VAGINA [facility] TRICHOMONAS/WET PREP Direct Exam NO YEAST OBSERVED [facility] TRICHOMONAS/WET PREP NO TRICHOMONAS SEEN [facility] TRICHOMONAS/WET PREP NO CLUE CELLS SEEN [facility] TRICHOMONAS/WET PREP Report Status FINAL 04/07/2024 [facility] Original Ordering Provider: [facility]inal[facility] Bacteria LM Ql (Urine sed) 1+ Abnormal None [facility] Epithelial cells LM.HPF (Urine sed) [#/Area] 2 TO 5 [facility] Interpretation and review of laboratory results Abnormal [facility] Mucus Ql (Urine sed) TRACE Abnormal None [facility] RBC LM.HPF (Urine sed) [#/Area] 0 TO 2 [facility] WBC LM.HPF (Urine sed) [#/Area] 0 TO 2 [facility] Trichomonas/Wet Prepon 04-07 Trichomonas/Wet Prep Specimen Description .VAGINA Direct Exam NO YEAST OBSERVED NO TRICHOMONAS SEEN NO CLUE CELLS SEEN Report Status FINAL 04/07/2024 Normal [facility] Comment on above: Performed By: #### W P #### [address] [place] [address] Horticultural Technical Officer: Marito Monroe MD UA w/Reflex Cultureon 2023 Clarity (U) Clear Normal CLEAR [facility] Comment on above: Performed By: #### U AX, UMICAO #### [facility] [address] [place] [address] [place] [address] Horticultural Technical Officer: Marito Monroe MD Color (U) Yellow Normal YEL [facility] Comment on above: Performed By: #### U AX, UMICAO #### [address] [place] [address] Horticultural Technical Officer: Marito Monroe MD Leukocyte esterase Test strip Ql (U) Negative Normal NEG [facility] Comment on above: Performed By: #### U AX, UMICAO #### [facility] [address] [place] [address] [place] [address] Horticultural Technical Officer: Marito Monroe MD Bilirubin, SemiQt,Ur Negative Normal NEG [facility] Comment on above: Performed By: #### U AX, UMICAO #### [address] [place] [address] Horticultural Technical Officer: Marito Monroe MD Blood, Urine Negative Normal NEG [facility] Comment on above: Performed By: #### U AX, UMICAO #### [facility] [address] [place] [address] [place] [address] Horticultural Technical Officer: Marito Monroe MD Glucose Ql (U) Negative Normal NEG [facility] Comment on above: Performed By: #### U AX, UMICAO #### [facility] [address] [place] [address] [place] [address] Horticultural Technical Officer: Marito Monroe MD Ketones Ql (U) 1+ mg/dL Abnormal NEG [facility] Comment on above: Performed By: #### U AX, UMICAO #### [facility] [address] [place] [address] [place] [address] Horticultural Technical Officer: Marito Monroe MD Nitrite,Ur Negative Normal NEG [facility] Comment on above: Performed By: #### U AX, UMICAO #### [facility] [address] [place] [address] [place] [address] Horticultural Technical Officer: Marito Monroe MD PH,Ur 6.0 Normal 5.0-9.0 [facility] Comment on above: Performed By: #### U AX, UMICAO #### [facility] [address] [place] [address] [place] [address] Horticultural Technical Officer: Marito Monroe MD Protein Ql (U) Negative Normal NEG [facility] Comment on above: Performed By: #### U AX, UMICAO #### [facility] [address] [place] [address] [place] [address] Horticultural Technical Officer: Marito Monroe MD Spec. [place],Ur >1.030 High 1.010-1.[address] [facility] Comment on above: Performed By: #### U AX, UMICAO #### [facility] [address] [place] [address] Dr[place], [place] [id number] Horticultural Technical Officer: Marito Monroe MD Urobilinogen,Ur Normal Normal 0.0-1.0 [facility] Comment on above: Performed By: #### U TAWANDA TAVERAO #### [facility] [address] [place] [address] Horticultural Technical Officer: Marito Monroe MD Urinalysis with Reflex to Cu ltureon 04-07-2024 Bilirubin Ql (U) Negative NEGATIVE [facility] Glucose Test strip (U) [Mass/Vol] Negative NEGATIVE mg/dL [facility] Hemoglobin Auto test strip Ql (U) Negative NEGATIVE [facility] Interpretation and review of laboratory results Abnormal [facility] Ketones (U) [Mass/Vol] 1+ Abnormal NEGATIVE mg/dL [facility] Nitrite Ql (U) Negative NEGATIVE [facility] pH (U) 6.0 [pH] 5.0 - 9.0 [facility] Protein (U) [Mass/Vol] Negative NEGATIVE mg/dL [facility] Specific gravity (U) [Rel density] High 1.010 - 1.020 [facility] Urobilinogen Qn (U) Normal 0.0 - 1. 0 EU/dL [facility] Urinalysis,Microon 4 Bacteria 1+ Abnormal NONE [facility] Comment on above: Performed By: #### U RED TAVERA #### [facility] [address] [place] [address] Horticultural Technical Officer: Marito Monroe MD Epithelial cells LM Ql (Urine sed) 2 TO 5 Normal 0-25 [facility] Comment on above: Performed By: #### U TAWANDA TAVERAO #### [facility] [address] [place] [address] Horticultural Technical Officer: Marito Monroe MD Mucus Strands TRACE Abnormal [facility] Comment on above: Performed By: #### U JOSE TAVERAICAO #### [facility] [address] [place] [address] Horticultural Technical Officer: Marito Monroe MD Urine RBC's 0 TO 2 Normal 0-2 [facility] Comment on above: Performed By: #### U RED TAVERA #### [facility] [address] [place] [address] Horticultural Technical Officer: Marito Monroe MD Urine WBC's 0 TO 2 Normal 0-5 [facility] Comment on above: Performed By: #### U RED TAVERA #### [facility] [address] [place] [address] Horticultural Technical Officer: Marito Monroe MD Wet prep, genitalon 04-07-20 24 Microorganism or agent identified Nom (Unsp spec) NO YEAST OBSERVED [facility] Microorganism or agent identified Nom (Unsp spec) NO TRICHOMONAS SEEN [facility] Microorganism or agent identified Nom (Unsp spec) NO CLUE CELLS SEEN [facility] Specimen Description .VAGINA [facility] Physician Referralon 023 Physician Referral [id number] [phone] [id number] Normal [facility] US PELVIS AND TRANSVAGon US PELVIS [...] SANDRA YOUSSEF Date: 2022-09-19 09:43 Normal [facility] PREG HCG QUALon 08-17-2022 , QUAL Negative Normal NEGATIVE [facility] Comment on above: Performed By: #### P REG #### [facility] [address], [place] [address] Dr. Aniyah Oliveira [facility]29 SARS-CoV-2 (COVID-19) RNA CHITO+probe Ql (Unsp spec) Not detected Normal NOT DETECTED [facility] Comment on above: Result Comment: This test is not yet approved or cleared by the [place] FDA. When there are no FDA-approved or cleared tests available, and other criteria are met, FDA can make tests available under an emergency access mechanism called an Emergency Use Authorization (EUA). The EUA for this test is supported by the [place] of Health and Human Service's (HHS's) declaration [...] SARS-CoV-2. Performed By: #### P REG #### [facility] [address], [place] [address] ABD/PELV W CONon [...] can be considered. Electronically authenticated by: LEANDRO SONIA Date: 2022-07-30 13:10 Normal [facility] STOOL CULTUREon 07-21-2022 Campylobacter Culture Final report Normal [facility] Comment on above: Performed By: #### C XSTOOL #### [facility] [address] [place] [address] [address] Aniyah Oliveira E coli Shiga Toxin EIA Negative Normal Negative [facility] Comment on above: Performed By: #### C XSTOOL #### [facility] [address] [address] [address] Aniyah Oliveira Result [address] [facility] Comment on above: Result Comment: No S almonella or Shigella recovered. Performed By: #### C XSTOOL #### [facility] [address] [address] [address] Aniyah Oliveira Result Comment: No C ampylobacter species isolated. Salmonella/Shigella Screen Final report Normal [facility] Comment on above: Performed By: #### C XSTOOL #### [facility] [address] [address] [address] Aniyah Oliveira LACTOFERRIN FECAL QUANTon Lactoferrin, Fecal, Quant. 0.56 ug/mL(g) Normal 0.00-7.24 [facility] Comment on above: Result Comment: . Baseline [...] (IBS). Performed By: #### P REG #### [facility] [address] [place] [address] Dr. Aniyah Oliveira CBC AUTO DIFFon 07-11-2022 BASO # 0.0 103/ul Normal 0.0-0.1 [facility] Comment on above: Performed By: #### P REG #### [facility] [address] [place] [address] Dr. Aniyah Oliveira Basophils/100 WBC (Bld) 0.2 % Normal 0.2-2.0 [facility] Comment on above: Performed By: #### P REG #### [facility] [address] [place] [address] Dr. Aniyah Oliveira EO # 0.1 103/ul Normal 0.0-0.7 [facility] Comment on above: Performed By: #### P REG #### [facility] [address] [place] [address] Dr. Aniyah Oliveira Eosinophils/100 WBC (Bld) 1.6 % Normal 0.9-7.0 [facility] Comment on above: Performed By: #### P REG #### [facility] [address] [place] [address] Dr. Aniyah Oliveira Erythrocyte distribution width (RBC) [Ratio] 12.0 % Normal 11.0-15.0 [facility] Comment on above: Performed By: #### P REG #### [facility] [address] [place] [address] Dr. Aniyah Oliveira Hematocrit (Bld) [Volume fraction] 37.7 % Normal 36.0-48.0 [facility] Comment on above: Performed By: #### P REG #### [facility] [address] [place] [address] Dr. Aniyah Oliveira Hemoglobin (Bld) [Mass/Vol] 12.9 g/dL Normal 12.0-16.0 [facility] Comment on above: Performed By: #### P REG #### [facility] [address] [place] [address] Dr. Aniyah Oliveira IG # 0.01 10e3/ul Normal 0.00-0.03 [facility] Comment on above: Performed By: #### P REG #### [facility] [address] [place] [address] Dr. Aniyah Oliveira IG % 0.2 % Normal 0.0-0.5 [facility] Comment on above: Performed By: #### P REG #### [facility] [address] [place] [address] Dr. Aniyah Oliveira LYMPH # 1.8 103/ul Normal 1.2-3.8 [facility] Comment on above: Performed By: #### P REG #### [facility] [address] [place] [address] Dr. Aniyah Oliveira Lymphocytes/100 WBC (Bld) 31.7 % Normal 20.5-60.0 [facility] Comment on above: Performed By: #### P REG #### [facility] [address] [place] [address] Dr. Aniyah Oliveira MANUAL DIFF REQ NO Normal [facility] Comment on above: Performed By: #### P REG #### [facility] [address] [place] [address] Dr. Aniyah Oliveira MCH (RBC) [Entitic mass] 31.0 pg Normal 26.7-34.0 [facility] Comment on above: Performed By: #### P REG #### [facility] [address] [place] [address] Dr. Aniyah Oliveira MCHC (RBC) [Mass/Vol] 34.2 g/dL Normal 29.9-35.2 [facility] Comment on above: Performed By: #### P REG #### [facility] [address] [place] [address] Dr. Aniyah Oliveira MCV (RBC) [Entitic vol] 90.6 fL Normal 81.0-99.0 [facility] Comment on above: Performed By: #### P REG #### [facility] [address] [place] [address] Dr. Aniyah Oliveira MONO # 0.3 103/ul Normal 0.3-0.8 [facility] Comment on above: Performed By: #### P REG #### [facility] [address] [address] [address] Aniyah Oliveira Monocytes/100 WBC (Bld) 5.0 % Normal 1.7-12.0 [facility] Comment on above: Performed By: #### P REG #### [facility] [address] [address] [address] Aniyah Oliveira NEUT # 3.4 103/ul Normal 1.4-6.5 [facility] Comment on above: Performed By: #### P REG #### [facility] [address] [address] [address] Aniyah Oliveira Neutrophils/100 WBC (Bld) 61.3 % Normal 43.0-75.0 [facility] Comment on above: Performed By: #### P REG #### [facility] [address] [place] [address] Dr. Aniyah Oliveira Platelet mean volume (Bld) [Entitic vol] 10.3 fL Normal 9.5-13.5 [facility] Comment on above: Performed By: #### P REG #### [facility] [address] [place] [address] Dr. Aniyah Oliveira PLT 188 103/ul Normal 150-450 [facility] Comment on above: Performed By: #### P REG #### [facility] [address] [place] [address] Dr. Aniyah Oliveira RBC 4.16 106/ul Critically low 4.20-5.40 [facility] Comment on above: Performed By: #### P REG #### [facility] [address] [place] [address] Dr. Aniyah Oliveira WBC 5.6 103/ul Normal 4.0-11.0 [facility] Comment on above: Performed By: #### P REG #### [facility] [address] [place] [address] Dr. Aniyah Oliveira PREG QUANT HCGon 07-11-2022 HCG QUANT <[address] [facility] Comment on above: Performed By: #### P REGQNT, CMP #### [facility] [address] [place] [address] Dr. Aniyah Oliveira HCG RANGE SEE BELOW Normal [facility] Comment on above: Result Comment: 5-50 0.2-1 WEEK 50-500 1-2 WEEKS 100-5,000 2-3 WEEKS 500-10,000 3-4 WEEKS 1,000-50,000 4-5 WEEKS 10,000-100,000 5-6 WEEKS 15,000-200,000 6-8 WEEKS 10,000-100,000 2-3 MONTHS Performed By: #### P REGQNT, CMP #### [facility] [address] [place] [address] Dr. Aniyah Oliveira PROF 14(COMP METB)on 022 Albumin [Mass/Vol] 4.2 g/dL Normal 3.4-5.0 [facility] Comment on above: Performed By: #### P REGQNT, CMP #### [facility] [address] [place] [address] Dr. Aniyah Oliveira Albumin/Globulin [Mass ratio] 1.3 {ratio} Normal [facility] Comment on above: Performed By: #### P REGQNT, CMP #### [facility] [address] [place] [address] Dr. Aniyah Oliveira ALP [Catalytic activity/Vol] 32 U/L Critically low 46-116 [facility] Comment on above: Performed By: #### P REGQNT, CMP #### [facility] [address] [place] [address] Dr. Aniyah Oliveira ALT [Catalytic activity/Vol] 14 U/L Normal 14-59 [facility] Comment on above: Performed By: #### P REGQNT, CMP #### [facility] [address] [place] [address] Dr. Aniyah Oliveira Anion gap [Moles/Vol] 12.9 mmol/L Normal [facility] Comment on above: Performed By: #### P REGQNT, CMP #### [facility] [address] [place] [address] Dr. Aniyah Oliveira AST [Catalytic activity/Vol] 15 U/L Normal 15-37 [facility] Comment on above: Performed By: #### P REGQNT, CMP #### [facility] [address] [place] [address] Dr. Aniyah Oliveira Bilirubin [Mass/Vol] 0.3 mg/dL Normal 0.2-1.0 [facility] Comment on above: Performed By: #### P REGQNT, CMP #### [facility] [address] [place] [address] Dr. Aniyah Oliveira Calcium [Mass/Vol] 9.2 mg/dL Normal 8.5-10.1 [facility] Comment on above: Performed By: #### P REGQNT, CMP #### [facility] [address] [place] [address] Dr. Aniyah Oliveira Chloride [Moles/Vol] 102 mmol/L Normal 98-107 [facility] Comment on above: Performed By: #### P REGQNT, CMP #### [facility] [address] [place] [address] Dr. Aniyah Oliveira CO2 [Moles/Vol] 27.6 mmol/L Normal 21.0-32.0 [facility] Comment on above: Performed By: #### P REGQNT, CMP #### [facility] [address] [place] [address] Dr. Aniyah Oliveira Creatinine [Mass/Vol] 0.73 mg/dL Normal 0.55-1.02 [facility] Comment on above: Performed By: #### P REGQNT, CMP #### [facility] [address] [place] [address] Dr. Aniyah Oliveira EGFR-AF BRUNEIAN >60 Normal >=60 [facility] Comment on above: Performed By: #### P REGQNT, CMP #### [facility] [address] [place] [address] Dr. Aniyah Oliveira EGFR-NON AF BRUNEIAN >60 Normal >=60 [facility] Comment on above: Performed By: #### P REGQNT, CMP #### [facility] [address] [place] [address] Dr. Aniyah Oliveira Globulin (S) [Mass/Vol] 3.2 g/dL Normal [facility] Comment on above: Performed By: #### P REGQNT, CMP #### [facility] [address] [place] [address] Dr. Aniyah Oliveira Glucose [Mass/Vol] 82 mg/dL Normal 74-106 [facility] Comment on above: Performed By: #### P REGQNT, CMP #### [facility] [address] [address] [address] Aniyah Oliveira Potassium [Moles/Vol] 3.5 mmol/L Normal 3.5-5.1 [facility] Comment on above: Performed By: #### P REGQNT, CMP #### [facility] [address] [place] [address] Dr. Aniyah Oliveira Protein [Mass/Vol] 7.4 g/dL Normal 6.4-8.2 [facility] Comment on above: Performed By: #### P REGQNT, CMP #### [facility] [address] [place] [address] Dr. Aniyah Oliveira Sodium [Moles/Vol] 139 mmol/L Normal 136-145 [facility] Comment on above: Performed By: #### P REGQNT, CMP #### [facility] [address] [place] [address] Dr. Aniyah Oliveira Urea nitrogen [Mass/Vol] 7.0 mg/dL Normal 7.0-18.0 [facility] Comment on above: Performed By: #### P REGQNT, CMP #### [facility] [address] [place] [address] Dr. Aniyah Oliveira Urea nitrogen/Creatinine [Mass ratio] 9.6 mg/mg Normal [facility] Comment on above: Performed By: #### P REGQNT, CMP #### [facility] [address] [place] [address] Dr. Aniyah Oliveira COVID/FLU RT-PCRon 2 SARS-CoV-2 (COVID-19) RNA CHITO+probe Ql (Unsp spec) Negative [employer] Other COVID/FLU RT-PCR Negative [facility] [employer] Other CBC W MANUAL DIFFon 04-18-20 22 ATYPICAL LYMPH # Normal [facility] Comment on above: Performed By: #### C ARCADIO #### [facility] [address] [place] [address] Dr. Aniyah Oliveira ATYPICAL LYMPH % Normal [facility] Comment on above: Performed By: #### C ARCADIO #### [facility] [address] [place] [address] Dr. Aniyah Oliveira BAND # 0.1 103/ul Normal 0.0-0.3 [facility] Comment on above: Performed By: #### C ARCADIO #### [facility] [address] [place] [address] Dr. Aniyah Oliveira BAND % 1 % Normal 0-5 [facility] Comment on above: Performed By: #### C ARCADIO #### [facility] [address] [place] [address] Dr. Aniyah Oliveira BASOM # 0.00 103/ul Normal 0.00-0.10 [facility] Comment on above: Performed By: #### C ARCADIO #### [facility] [address] [place] [address] Dr. Aniyah Oliveira BASOM % 0.0 % Critically low 0.2-2.0 The [facility] Comment on above: Performed By: #### C ARCADIO #### [facility] [address] [place] [address] Dr. Aniyah Oliveira BLAST # Normal [facility] Comment on above: Performed By: #### C ARCADIO #### [facility] [address] [place] [address] Dr. Aniyah Oliveira BLAST % Normal [facility] Comment on above: Performed By: #### C ARCADIO #### [facility] [address] [place] [address] Dr. Aniyah Oliveira CORRECTED WBC Normal 4.0-11.0 The [facility] Comment on above: Performed By: #### C ARCADIO #### [facility] [address] [address] [address] Aniyah Oliveira EOS # 0.00 103/ul Normal 0.00-0.70 [facility] Comment on above: Performed By: #### C ARCADIO #### [facility] [address] [address] [address] Aniyah Oliveira EOS% 0.0 % Critically low 0.9-7.0 [facility] Comment on above: Performed By: #### C ARCADIO #### [facility] [address] [place] [address] Dr. Aniyah Oliveira HCT 39.9 % Normal 36.0-48.0 [facility] Comment on above: Performed By: #### C ARCADIO #### [facility] [address] [place] [address] Dr. Aniyah Oliveira HGB 13.7 g/dl Normal 12.0-16.0 [facility] Comment on above: Performed By: #### C ARCADIO #### [facility] [address] [place] [address] Dr. Aniyah Oliveira LYMPHM # 0.71 103/ul Critically low 1.20-3.80 [facility] Comment on above: Performed By: #### C ARCADIO #### [facility] [address] [place] [address] Dr. Aniyah Oliveira LYMPHM% 11.0 % Critically low 20.5-60.0 [facility] Comment on above: Performed By: #### C ARCADIO #### [facility] [address] [place] [address] Dr. Aniyah Oliveira MCH 31.5 pg Normal 26.7-34.0 [facility] Comment on above: Performed By: #### C ARCADIO #### [facility] [address] [place] [address] Dr. Aniyah Oliveira MCHC 34.3 g/dl Normal 29.9-35.2 [facility] Comment on above: Performed By: #### C ARCADIO #### [facility] [address] [place] [address] Dr. Aniyah Oliveira MCV 91.7 fL Normal 81.0-99.0 [facility] Comment on above: Performed By: #### C ARCADIO #### [facility] [address] [place] [address] Dr. Aniyah Oliveira METAMYELOCYTE # Normal [facility] Comment on above: Performed By: #### C ARCADIO #### [facility] [address] [place] [address] Dr. Aniyah Oliveira METAMYELOCYTE % Normal [facility] Comment on above: Performed By: #### C BCRONALD #### [facility] [address] [place] [address] Dr. Aniyah Oliveira MONOM# 0.13 103/ul Critically low 0.30-0.80 [facility] Comment on above: Performed By: #### C ARCADIO #### [facility] [address] [place] [address] Dr. Aniyah Oliveira MONOM% 2.0 % Normal 1.7-12.0 [facility] Comment on above: Performed By: #### C ARCADIO #### [facility] [address] [place] [address] Dr. Aniyah Oliveira MPV 10.5 fL Normal 9.5-13.5 [facility] Comment on above: Performed By: #### C ARCADIO #### [facility] [address] [place] [address] Dr. Aniyah Oliveira MYELOCYTE # Normal [facility] Comment on above: Performed By: #### C ARCADIO #### [facility] [address] [place] [address] Dr. Aniyah Oliveira MYELOCYTE % Normal [facility] Comment on above: Performed By: #### C ARCADIO #### [facility] [address] [place] [address] Dr. Aniyah Oliveira NRBC Normal [facility] Comment on above: Performed By: #### C ARCADIO #### [facility] [address] [place] [address] Dr. Aniyah Olvieira PLT 204 103/ul Normal 150-450 [facility] Comment on above: Performed By: #### C BCMAN #### [facility] [address] [place], [place] [address] Dr. Aniyah Oliveira RBC 4.35 106/ul Normal 4.20-5.40 [facility] Comment on above: Performed By: #### C BCMAN #### [facility] [address] [address] [address] Aniyah Oliveira RDW 12.1 % Normal 11.0-15.0 [facility] Comment on above: Performed By: #### C PARKERMAN #### [facility] [address] [address] [address] Aniyah Oliveira SEG # 5.59 103/ul Normal 1.40-6.50 [facility] Comment on above: Performed By: #### C ARCADIO #### [facility] [address] [place] [address] Dr. Aniyah Oliveira SEG % 86.0 % Critically high 43.0-75.0 [facility] Comment on above: Performed By: #### C ARCADIO #### [facility] [address] [address] [address] Aniyah Oliveira WBC 6.5 103/ul Normal 4.0-11.0 [facility] Comment on above: Performed By: #### C ARCADIO #### [facility] [address] [place] [address] HEAD WO CONon [...] SANDRA YOUSSEF Date: 2022-04-18 14:39 Normal [facility] Covid-19 PCR (CVDTBH)on 03-30 SARS-CoV-2 (COVID-19) RNA CHITO+probe Ql (Unsp spec) Not detected Normal NOT DETECTED [facility] Comment on above: Result Comment: When diagnostic [...] for this test is supported by the [place] of [employer] and Human Service's declaration that [...] used). Performed By: #### C VDTBH #### [facility] [address] [place] [address] Dr. Aniyah Oliveira ER URINE PROFILEon 2 Bilirubin Ql (U) Negative Normal NEGATIVE [facility] Comment on above: Performed By: #### E RUR #### [facility] [address] [place] [address] Dr. Aniyah Oliveira Clarity (U) CLEAR Normal CLEAR [facility] Comment on above: Performed By: #### E RUR #### [facility] [address] [place] [address] Dr. Aniyah Oliveira Color (U) LT. YELLOW Normal YELLOW The [facility] Comment on above: Performed By: #### E RUR #### [facility] [address] [place] [address] Dr. Aniyah Oliveira ERUAHD A micrscopic examination will be performed if indicated. Normal [facility] Comment on above: Performed By: #### E RUR #### [facility] [address] [place] [address] Dr. Aniyah Oliveira Glucose Ql (U) Negative Normal NEGATIVE [facility] Comment on above: Performed By: #### E RUR #### [facility] [address] [place] [address] Dr. Aniyah Oliveira Hemoglobin Ql (U) Negative Normal NEGATIVE [facility] Comment on above: Performed By: #### E RUR #### [facility] [address] [place] [address] Dr. Aniyah Oliveira Ketones Ql (U) 15 mg/dl Abnormal NEGATIVE [facility] Comment on above: Performed By: #### E RUR #### [facility] [address] [place] [address] Dr. Aniyah Oliveira LEUKOCYTES Negative Normal NEGATIVE [facility] Comment on above: Performed By: #### E RUR #### [facility] [address] [place] [address] Dr. Aniyah Oliveira Nitrite Ql (U) Negative Normal NEGATIVE [facility] Comment on above: Performed By: #### E RUR #### [facility] [address] [place] [address] Dr. Aniyah Oliveira pH (U) 6.0 [pH] Normal 5-9 [facility] Comment on above: Performed By: #### E RUR #### [facility] [address] [place] [address] Dr. Aniyah Oliveira SPEC GRAVITY 1.005 Normal 1.005-<=1.025 [facility] Comment on above: Performed By: #### E RUR #### [facility] [address] [place] [address] Dr. Aniyah Oliveira UA PROTEIN Negative Normal NEGATIVE/ TRACE [facility] Comment on above: Performed By: #### E RUR #### [facility] [address] [place] [address] Dr. Aniyah Oliveira UR MICRO IND NOT INDICATED Normal [facility] Comment on above: Performed By: #### E RUR #### [facility] [address] [place], [place] [id number] Dr. Aniyah Oliveira Urobilinogen Qn (U) 0.2 {Yovani'U}/dL Normal 0.2 - 1. 0 [facility] Comment on above: Performed By: #### E RUR #### [facility] [address] [place] [address] Dr. Aniyah Oliveira PREG HCG QUALon 04-18-2022 , QUAL Negative Normal NEGATIVE [facility] Comment on above: Performed By: #### P REG #### [facility] [address] [place] [address] Dr. Aniyah Oliveira PROF 14(COMP METB)on 022 Albumin [Mass/Vol] 4.2 g/dL Normal 3.4-5.0 [facility] Comment on above: Performed By: #### C MP #### [facility] [address] [place] [address] Dr. Aniyah Oliveira Albumin/Globulin [Mass ratio] 1.3 {ratio} Normal [facility] Comment on above: Performed By: #### C MP #### [facility] [address] [place] [address] Dr. Aniyah Oliveira ALP [Catalytic activity/Vol] 35 U/L Critically low 46-116 [facility] Comment on above: Performed By: #### C MP #### [facility] [address] [place] [address] Dr. Aniyah Oliveira ALT [Catalytic activity/Vol] 18 U/L Normal 14-59 [facility] Comment on above: Performed By: #### C MP #### [facility] [address] [place] [address] Dr. Aniyah Oliveira Anion gap [Moles/Vol] 13.3 mmol/L Normal [facility] Comment on above: Performed By: #### C MP #### [facility] [address] [place] [address] Dr. Aniyah Oliveira AST [Catalytic activity/Vol] 19 U/L Normal 15-37 [facility] Comment on above: Performed By: #### C MP #### [facility] [address] [place], [place] [id number] Dr. Aniyah Oliveira Bilirubin [Mass/Vol] 0.3 mg/dL Normal 0.2-1.0 [facility] Comment on above: Performed By: #### C MP #### [facility] [address] [place] [address] Dr. Aniyah Oliveira Calcium [Mass/Vol] 9.5 mg/dL Normal 8.5-10.1 [facility] Comment on above: Performed By: #### C MP #### [facility] [address] [place] [address] Dr. Aniyah Oliveira Chloride [Moles/Vol] 106 mmol/L Normal 98-107 [facility] Comment on above: Performed By: #### C MP #### [facility] [address] [place] [address] Dr. Aniyah Oliveira CO2 [Moles/Vol] 23.6 mmol/L Normal 21.0-32.0 [facility] Comment on above: Performed By: #### C MP #### [facility] [address] [place] [address] Dr. Aniyah Oliveira Creatinine [Mass/Vol] 0.66 mg/dL Normal 0.55-1.02 [facility] Comment on above: Performed By: #### C MP #### [facility] [address] [place] [address] Dr. Aniyah Oliveira EGFR-AF BRUNEIAN >60 Normal >=60 [facility] Comment on above: Performed By: #### C MP #### [facility] [address] [address] [address] Aniyah Oliveira EGFR-NON AF BRUNEIAN >60 Normal >=60 [facility] Comment on above: Performed By: #### C MP #### [facility] [address] [place] [address] Dr. Aniyah Oliveira Globulin (S) [Mass/Vol] 3.2 g/dL Normal [facility] Comment on above: Performed By: #### C MP #### [facility] [address] [address] [address] Aniyah Oliveira Glucose [Mass/Vol] 99 mg/dL Normal 74-106 [facility] Comment on above: Performed By: #### C MP #### [facility] [address] [address] [address] Aniyah Oliveira Potassium [Moles/Vol] 3.9 mmol/L Normal 3.5-5.1 [facility] Comment on above: Performed By: #### C MP #### [facility] [address] [address] [address] Aniyah Oliveira Protein [Mass/Vol] 7.4 g/dL Normal 6.4-8.2 [facility] Comment on above: Performed By: #### C MP #### [facility] [address] [address] [address] Aniyah Oliveira Sodium [Moles/Vol] 139 mmol/L Normal 136-145 [facility] Comment on above: Performed By: #### C MP #### [facility] [address] [address] [address] Aniyah Oliveira Urea nitrogen [Mass/Vol] 4.0 mg/dL Critically low 7.0-18.0 [facility] Comment on above: Performed By: #### C MP #### [facility] [address] [address] [address] Aniyah Oliveira Urea nitrogen/Creatinine [Mass ratio] 6.1 mg/mg Normal [facility] Comment on above: Performed By: #### C MP #### [facility] [address] [address] [address] Aniyah Oliveira XR CHEST 2 Von [...] MARITO GUERRA Date: 2022-04-18 14:[address] [facility] XR CSPINE 2_3 VIEWSon 2021 XR [...] MARITO GUERRA Date: 2022-04-18 14:[address] [facility] PAP ACOG PANEL 3: 20 to 28on 01-25-[address] [facility] Comment on above: Result Comment: Perf ormed at: [facility] Performed By: #### [id number] #### [facility] [address] [place] [address] Dr. Aniyah Oliveira Age Gdln ACOG Testing Normal [facility] Comment on above: Performed By: #### [id number] #### [facility] [address] [place] [address] Dr. Aniyah Oliveira Chlamydia, Nuc. Acid Amp Negative Normal Negative [facility] Comment on above: Result Comment: Perf ormed at: =G Performed By: #### [id number] #### [facility] [address] [place] [address] Dr. Aniyah Oliveira DIAGNOSIS: Comment Normal [facility] Comment on above: Result Comment: NEGA TIVE FOR INTRAEPITHELIAL LESION OR MALIGNANCY. Performed at: [facility] Performed By: #### [id number] #### [facility] [address] [place] [address] Dr. Aniyah Oliveira Gonococcus, Nuc. Acid Amp Negative Normal Negative [facility] Comment on above: Result Comment: Perf ormed at: =G Performed By: #### [id number] #### [facility] [address] [place] [address] Dr. Aniyah Oliveira Methodology: Comment Normal [facility] Comment on above: Result Comment: This liquid based ThinPrep(R) pap test was screened with the use of an image guided system. Performed at: [facility] Performed By: #### [id number] #### [facility] [address] [place] [address] Dr. Aniyah Oliveira Note: Comment Normal [facility] Comment on above: Result Comment: The Pap smear is a screening test designed to aid in the detection of premalignant and malignant conditions of the uterine cervix. It is not a diagnostic procedure and should not be used as the sole means of detecting cervical cancer. Both false-positive and false-negative reports do occur. . Performed at: [facility] Performed By: #### [id number] #### [facility] [address] [place] [address] Dr. Aniyah Oliveira Performed by: Comment Normal [facility] Comment on above: Result Comment: Cherelle Crowder, Food And Beverage Operations Manager (ASCP) Performed at: [facility] Performed By: #### [id number] #### [facility] [address] [place] [address] Dr. Aniyah Oliveira Reflex Criteria: Comment Normal [facility] Comment on above: Result Comment: The HPV DNA reflex criteria were not met with this specimen result therefore, no HPV testing was performed. . Performed at: [facility] Performed By: #### [id number] #### [facility] [address] [place] [address] Dr. Aniyah Oliveira Specimen adequacy: Comment Normal [facility] Comment on above: Result Comment: Sati sfactory for evaluation. Endocervical and/or squamous metaplastic cells (endocervical component) are present. Performed at: [facility] Performed By: #### [id number] #### [facility] [address] [place] [address] Dr. Aniyah Oliveira VAGINITIS/VAGINOSIS DNA PROB Rehan 01-24-2022 Dang species Negative Normal Negative [facility] Comment on above: Performed By: #### V AGINT #### [facility] [address] [place] [address] Dr. Aniyah Oliveira Gardnerella vaginalis Negative Normal Negative [facility] Comment on above: Performed By: #### V AGINT #### [facility] [address] [place] [address] Dr. Aniyah Oliveira Trichomonas vaginalis Negative Normal Negative [facility] Comment on above: Performed By: #### V AGINT #### [facility] [address] [address] [address] Aniyah Oliveira Vital Signs Date Time Vital Sign Value Performing Clinician Facility 04-21-2025 15:52-0400 Body mass index (BMI) [Ratio] 24.84 kg/m2 Nessa ALEXIS Work Phone: [facility] 04-21-2025 15:52-0400 Body weight 63.62 kg Nessa ALEXIS Work Phone: [facility] 04-21-2025 15:52-0400 Diastolic blood pressure 60 mm[Hg] Nessa Piedra PA Work Phone: [facility] 04-21-2025 15:52-0400 Systolic blood pressure 100 mm[Hg] Nessa Piedra PA Work Phone: [facility] 04-13-2025 11:28-0400 Body height 160.02 cm Bibiana Aichholz [employer] Work Phone: [facility] 04-13-2025 11:28-0400 Body mass index (BMI) [Ratio] 24.3 kg/m2 Bibiana Aichholz [employer] Work Phone: [facility] 04-13-2025 11:28-0400 Body temperature 97.8 [degF] Bibiana Aichholz [employer] Work Phone: [facility] 04-13-2025 11:28-0400 Body weight 62.14 kg Bibiana Aichholz [employer] Work Phone: [facility] 04-13-2025 11:28-0400 Diastolic blood pressure 64 mm[Hg] Bibiana Aichholz [employer] Work Phone: [facility] 04-13-2025 11:28-0400 Heart rate 61 /min Bibiana Aichholz [employer] Work Phone: [facility] 04-13-2025 11:28-0400 Respiratory rate 18 /min Bibianaarslan Schwabkasey [employer] Work Phone: [facility] 04-13-2025 11:28-0400 SaO2% (BldA) [Mass fraction] 99 % Bibianaarslan Schwabciprianoz [employer] Work Phone: [facility] 04-13-2025 11:28-0400 Systolic blood pressure 92 mm[Hg] Bibianaarslan Schwabkasey [employer] Work Phone: [facility] 03-24-2025 11:48-0400 Body mass index (BMI) [Ratio] 24 kg/m2 Migel Moriah DO Work Phone: [facility] 03-24-2025 11:48-0400 Body weight 61.46 kg Migel Moriah DO Work Phone: [facility] 03-24-2025 11:48-0400 Diastolic blood pressure 74 mm[Hg] Migel Moriah DO Work Phone: [facility] 03-24-2025 11:48-0400 Systolic blood pressure 102 mm[Hg] Migel Moriah DO Work Phone: [facility] 03-08-2025 14:02-0400 Body mass index (BMI) [Ratio] 24.23 kg/m2 Bibiana Polly [employer] Work Phone: [facility] 03-08-2025 14:02-0400 Body temperature 97.81 [degF] Bibiana Briannez CELLAR [employer] Work Phone: [facility] 03-08-2025 14:02-0400 Body weight 62.05 kg Bibiana Bienvenidohholz [employer] Work Phone: [facility] 03-08-2025 14:02-0400 Diastolic blood pressure 80 mm[Hg] Bibiana Bienvenidohholz CELL[employer] Work Phone: [facility] 03-08-2025 14:02-0400 Heart rate 78 /min Bibiana Briannez [employer] Work Phone: [facility] 03-08-2025 14:02-0400 Respiratory rate 18 /min Bibiana Aichholz [employer] Work Phone: [facility] 03-08-2025 14:02-0400 SaO2% (BldA) [Mass fraction] 98 % Bibiana Aichholz [employer] Work Phone: [facility] 03-08-2025 14:02-0400 Systolic blood pressure 110 mm[Hg] Bibiana Aichholz [employer] Work Phone: [facility] 06-03-2024 17:37-0500 Body height 160 cm Bibiana Aichholz [employer] Work Phone: [facility] 06-03-2024 17:37-0500 Body mass index (BMI) [Ratio] 22.85 kg/m2 Bibiana Aichholz [employer] Work Phone: [facility] 06-03-2024 17:37-0500 Body temperature 99.39 [degF] Bibiaan Aichholz [employer] Work Phone: [facility] 06-03-2024 17:37-0500 Body weight 58.51 kg Bibiana Aichholz [employer] Work Phone: [facility] 06-03-2024 17:37-0500 Diastolic blood pressure 82 mm[Hg] Bibiana Aichholz [employer] Work Phone: [facility] 06-03-2024 17:37-0500 Heart rate 68 /min Bibiana Aichholz [employer] Work Phone: [facility] 06-03-2024 17:37-0500 Respiratory rate 18 /min Bibiana Aichholz [employer] Work Phone: [facility] 06-03-2024 17:37-0500 SaO2% (BldA) [Mass fraction] 97 % Bibiana Aichholz [employer] Work Phone: [facility] 06-03-2024 17:37-0500 Systolic blood pressure 112 mm[Hg] Bibiana Aichholz [employer] Work Phone: [facility] 04-15-2024 15:37-0400 Body height 160 cm Bibiana Deckerz [employer] Work Phone: [facility] 04-15-2024 15:37-0400 Body mass index (BMI) [Ratio] 22.71 kg/m2 Bibianaarslan Schwabholz [employer] Work Phone: [facility] 04-15-2024 15:37-0400 Body temperature 97.81 [degF] Bibiana Matias [employer] Work Phone: [facility] 04-15-2024 15:37-0400 Body weight 58.15 kg Bibiana Deckerz [employer] Work Phone: [facility] 04-15-2024 15:37-0400 Diastolic blood pressure 76 mm[Hg] Bibiana Deckerz [employer] Work Phone: [facility] 04-15-2024 15:37-0400 Heart rate 57 /min Bibiana Deckerz [employer] Work Phone: [facility] 04-15-2024 15:37-0400 Respiratory rate 20 /min Bibianaarslan Deckerz [employer] Work Phone: [facility] 04-15-2024 15:37-0400 SaO2% (BldA) [Mass fraction] 99 % Bibiana Deckerz [employer] Work Phone: [facility] 04-15-2024 15:37-0400 Systolic blood pressure 118 mm[Hg] Bibiana Deckerz [employer] Work Phone: [facility] 04-13-2024 16:02-0400 Body mass index (BMI) [Ratio] 22.92 kg/m2 Nessa ALEXIS Work Phone: [facility] 04-13-2024 16:02-0400 Body weight 58.7 kg Nessa ALEXIS Work Phone: [facility] 04-13-2024 16:02-0400 Diastolic blood pressure 70 mm[Hg] Nessa ALEXIS Work Phone: [facility] 04-13-2024 16:02-0400 Systolic blood pressure 120 mm[Hg] Nessa ALEXIS Work Phone: [facility] 04-07-2024 10:20-0400 SaO2% (BldA) [Mass fraction] 98 % Angelica Aranda DO Work Phone: [facility] 04-07-2024 10:00-0400 Diastolic blood pressure 54 mm[Hg] Angelica Aranda DO Work Phone: [facility] 04-07-2024 10:00-0400 Systolic blood pressure 100 mm[Hg] Angelica Aranda DO Work Phone: [facility] 04-07-2024 08:25-0400 Body height 160 cm Angelica Aranda DO Work Phone: [facility] 04-07-2024 08:25-0400 Body mass index (BMI) [Ratio] 21.26 kg/m2 Angelica Cheo DO Work Phone: [facility] 04-07-2024 08:25-0400 Body temperature 97.81 [degF] Angelica Cheo DO Work Phone: [facility] 04-07-2024 08:25-0400 Body weight 54.43 kg Angelica Aranda DO Work Phone: [facility] 04-07-2024 08:25-0400 Heart rate 60 /min Angelica Aranda DO Work Phone: [facility] 04-07-2024 08:25-0400 Respiratory rate 18 /min Angelica Aranda DO Work Phone: [facility] 08-26-2023 15:40-0500 Body mass index (BMI) [Ratio] 24.27 kg/m2 Migel Moriah DO Work Phone: [facility] 08-26-2023 15:40-0500 Body weight 62.14 kg Migel Moriah DO Work Phone: [facility] 08-26-2023 15:40-0500 Diastolic blood pressure 68 mm[Hg] Migel Moriah DO Work Phone: [facility] 08-26-2023 15:40-0500 Systolic blood pressure 110 mm[Hg] Migel Moriah DO Work Phone: [facility] 05-10-2022 11:20-0400 Body height 160.02 cm Nenita Lee Other [employer] Other 05-10-2022 11:20-0400 Body mass index (BMI) [Ratio] 20.19 kg/m2 Nenita Lee Other [employer] Other 05-10-2022 11:20-0400 Body temperature 98 [degF] Nenita Lee Other [employer] Other 05-10-2022 11:20-0400 Body weight 51.71 kg Nenita Lee Other [employer] Other 05-10-2022 11:20-0400 Respiratory rate 18 /min Nenita Lee Other [employer] Other 05-10-2022 11:20-0400 SaO2% (BldA) [Mass fraction] 99 % Nenita Lee Other [employer] Other Encounters Encounter Date Encounter Type Care Provider Facility Start: 04-21-2025 End: 04-21-2025 Patient encounter procedure Nessa ALEXIS Work Phone: [facility] [employer] Start: 04-21-2025 End: 04-21-2025 Periodic preventive med est patient 18-39 yrs Nessa ALEXIS Work Phone: [facility] Kimberley ARREGUIN Comment on above: Well woman exam with routine gynecological exam Start: 04-21-2025 End: 04-21-2025 Bamboo flowsheet Nessa ALEXIS Work Phone: [facility] Start: 04-21-2025 End: 04-21-2025 Bamboo flowsheet Nessa ALEXIS Work Phone: [facility] Start: 04-13-2025 End: 04-13-2025 ambulatory Bibiana Matias [employer]-C Work Phone: [facility] Work Phone: Start: 04-13-2025 End: 04-13-2025 Patient encounter procedure Bibiana Matias [employer]-C [facility] Work Phone: Start: 03-25-2025 End: 03-25-2025 ambulatory MIGEL MORIAH Not Available Start: 03-24-2025 End: 03-24-2025 Bamboo flowsheet Migel Moriah DO Work Phone: [facility] Start: 03-24-2025 End: 03-24-2025 Bamboo flowsheet Migel Moriah DO Work Phone: [facility] Start: 03-24-2025 End: 03-24-2025 Clinisync Result Encounter Generic External Data Provider [facility] External Department Unsolicited Start: 03-24-2025 End: 03-24-2025 ambulatory MIGEL MORIAH Not Available Start: 03-24-2025 End: 03-24-2025 Office outpatient visit 15 minutes Migel Moriah DO Work Phone: [facility] Comment on above: Pelvic pain in femal e; Breakthrough bleeding with IUD; Menorrhagia with regular cycle Start: 03-08-2025 End: 03-08-2025 Bamboo flowsheet Bibiana Matias NP Work Phone: [facility] Start: 03-08-2025 End: 03-08-2025 Bamboo flowsheet Bibiana Schwabciprianoz [employer] Work Phone: [facility] Start: 03-08-2025 End: 03-08-2025 Clinisync Result Encounter Bibiana Polly [employer] Work Phone: [facility] External Department Unsolicited Start: 03-08-2025 End: 03-08-2025 Office outpatient visit 25 minutes Bibiana Bienvenidoeverkasey [employer] Work Phone: [facility] Comment on above: Bipolar affective di sorder, current episode manic, current episode severity unspecified (HCC) (Primary Dx); Dehydration; Nausea and vomiting, unspecified vomiting type; Anxiety Start: 03-08-2025 End: 03-08-2025 ambulatory BIBIANA AICHHOLZ Not Available Start: 06-03-2024 End: 06-03-2024 Office outpatient visit 25 minutes Bibiana Polly [employer] Work Phone: [facility] Comment on above: Dehydration (Primary Dx); Nausea and vomiting, unspecified vomiting type; Diarrhea, unspecified type Start: 06-03-2024 End: 06-03-2024 ambulatory BIBIANA AICHHOLZ Not Available Start: 06-03-2024 End: 06-03-2024 Bamboo flowsheet Bibiana Aichholz [employer] Work Phone: [facility] Start: 06-03-2024 End: 06-03-2024 Bamboo flowsheet Bibiana Bienvenidoeverholz [employer] Work Phone: [facility] Start: 04-15-2024 End: 04-15-2024 Office outpatient visit 25 minutes Bibiana Briannez [employer] Work Phone: [facility] Comment on above: RB (rectal bleeding) (Primary Dx); Bipolar affective disorder, current episode manic, current episode severity unspecified ([facility]/HCC) Start: 04-15-2024 End: 04-15-2024 ambulatory BIBIANA AICHHOLZ Not Available Start: 04-15-2024 End: 04-15-2024 Bamboo flowsheet Bibiana Aichholz [employer] Work Phone: [facility] Start: 04-15-2024 End: 04-15-2024 Bamboo flowsheet Bibiana Polly [employer] Work Phone: [facility] Start: 04-13-2024 [...] 04-07-2024 Emergency department patient visit [facility] Comment on above: Abdominal pain, left lower quadrant (Primary Dx) Start: 08-26-2023 End: 08-26-2023 Office outpatient visit 10 minutes Migel Moriah DO Work Phone: [facility] Comment on above: Intrauterine device surveillance Start: 01-23-2023 End: 01-24-[address] [facility] Start: 01-23-2023 End: 01-23-2023 Patient encounter procedure Glendy CELIS [facility] Start: 12-06-2022 ambulatory [facility]EL[facility] Start: 09-18-2022 End: 09-19-[address] MIGEL MAJOR . Facility:[facility] Start: 08-20-2022 Encounter for preprocedural laboratory examination CHANTAL TIERNEY [facility] Start: 08-17-2022 End: 08-17-2022 ambulatory DANCE HISTORIAN BIBIANA POLLY Facility:[facility] Start: 08-15-2022 End: 08-16-2022 ambulatory DANCE HISTORIAN BIBIANA POLLY Facility:[facility] Start: 08-15-2022 End: 08-16-2022 Encounter for preprocedural laboratory examination DANCE HISTORIAN BIBIANA POLLY Facility:[facility] Start: 07-27-2022 End: 07-28-2022 ambulatory BLUM H FAWWAD Facility:[facility] Start: 07-17-2022 End: 07-17-2022 ambulatory BLUM H FAWWAD Facility:[facility] Start: 07-11-2022 End: 07-12-2022 ambulatory BLUM H FAWWAD Facility:[facility] Start: 05-10-2022 End: 05-10-2022 ambulatory Nenita Lee Other [employer] Other Start: 05-10-2022 Office outpatient vi sit 25 minutes Nenita Lee [facility] Start: 04-18-2022 End: 04-18-2022 ambulatory ROBINSON DINH . Facility:[facility] Start: 01-22-2022 End: 01-22-2022 ambulatory DANCE HISTORIAN BIBIANA BIENVENIDOEverKASEY Facility:[facility] Procedures Date Procedure Procedure Detail Performing Clinician Start: 03-24-2025 ALL CBC WITH AUTO DIFF Migel Moriah DO Work Phone: Start: 03-24-2025 Urine test visual color cmprsn meths Migel Moriah DO Work Phone: Start: 03-08-2025 ALL CBC WITH AUTO DIFF Bibiana Aichholz [employer] Work Phone: Start: 04-13-2024 IGP,APTIMA HPV,AGE GDLN Nessa ALEXIS Work Phone: Start: 04-13-2024 Microscopic observat ion [Identifier] in Cervix by Cyto stain Nessa ALEXIS Work Phone: Start: 04-13-2024 Cytp cerv/vag auto t hin layer prep mnl screen Nessa ALEXIS Work Phone: Start: 04-07-2024 Ct abdomen & [...] in Cervix by Cyto stain Bibiana Matias [employer] Work Phone: Start: 08-17-2022 Colonoscopy Glendy MARTIN M Plan of Treatment Date Care Activity Detail Author Start: 07-16-2029 DTaP/Tdap/Td vaccine (8 - Td or Tdap) DTaP/Tdap/Td vaccine (8 - Td or Tdap) [facility] Start: 04-13-2027 Screening for malign ant neoplasm of cervix [facility] Start: 04-04-2026 Screening for malign ant neoplasm of cervix [facility] Start: 04-21-2025 End: 04-21-2025 Patient encounter procedure [facility] Comment on above: Arrived Start: 04-13-2025 End: 04-13-2025 Patient encounter procedure 04/13/2025 11:30 AM EDT Office Visit [facility] [address] [place] [address] Bibiana Matias NP [address] [place] [address] [facility] Start: 03-25-2025 End: 03-25-2025 Professional / ancillary services management 03/25/2025 3:00 PM EDT Ancillary Procedure ALBERT ARREGUIN [address] [place] [address] [place] [address] ALBERT ARREGUIN Start: 03-24-2025 End: 03-24-2026 aPTT in Blood by Coagulation assay APTT Lab Routine Menorrhagia with regular cycle Expected: 03/24/2025 (Approximate), Expires: 03/24/2026 [facility] Comment on above: Expected: 03/24/2025 (Approximate), Expires: 03/24/2026 Start: 03-24-2025 End: 09-24-2025 US Pelvis transvaginal US pelvis transvaginal Imaging Routine Breakthrough bleeding with IUD Expected: 03/24/2025, Expires: 09/24/2025 [facility] Work Phone: Comment on above: Expected: 03/24/2025 , Expires: 09/24/2025 Start: 03-08-2025 End: 03-08-2026 Basic metabolic 1998 panel - Serum or Plasma Basic metabolic panel Lab Routine Dehydration Expected: 03/08/2025 (Approximate), Expires: 03/08/2026 [facility] Work Phone: Comment on above: Expected: 03/08/2025 (Approximate), Expires: 03/08/2026 Start: 03-08-2025 End: 03-08-2026 CBC W Auto Differential panel - Blood CBC and differential Lab Routine Dehydration Expected: 03/08/2025 (Approximate), Expires: 03/08/2026 [facility] Comment on above: Expected: 03/08/2025 (Approximate), Expires: 03/08/2026 Start: 03-08-2025 End: 03-08-2026 Magnesium [Mass/volume] in Serum or Plasma Magnesium Lab Routine Dehydration Expected: 03/08/2025 (Approximate), Expires: 03/08/2026 [facility] Comment on above: Expected: 03/08/2025 (Approximate), Expires: 03/08/2026 Start: 03-08-2025 End: 03-08-2025 Patient encounter procedure 03/08/2025 2:00 PM EDT Office Visit [facility] [address] [place] [address] Bibiana Matias, SHAUN [address] [place] [id number] Arrived [facility] Comment on above: Arrived Start: 2024 Screening for malign ant neoplasm of cervix HPV/Cotest [facility] Start: 07-16-2024 End: 07-16-2024 Patient encounter procedure 07/16/2024 3:00 PM EST Office Visit [facility] [address] [place] [address] Bibiana Matias, CELLAR HAND [address] [place] [id number] [facility] Start: 06-03-2024 End: 06-03-2024 Patient encounter procedure 06/03/2024 5:30 PM EST Office Visit [facility] [address] [place] [address] Bibiana Matias, CELLAR HAND [address] [place] [id number] Arrived [facility] Comment on above: Arrived Start: 04-15-2024 End: 04-15-2024 Patient encounter procedure [facility] Comment on above: Arrived Start: 04-13-2024 End: 04-13-2024 Patient encounter procedure [facility] Comment on above: Arrived Start: 03-29-2024 COVID-19 Vaccine ( season) COVID-19 Vaccine ( season) [facility] Start: 02-27-2024 Influenza vaccination Flu vaccine (# 1) [facility] Start: 03-29-2023 Influenza vaccination Influenza Vacc ine (#1) [facility] Start: 10-12-2015 Screening for malign ant neoplasm of cervix Pap smear [facility] Start: 2012 Hepatitis C screening Hepatitis C sc reen [facility] Start: 2009 HIV screening HIV screen [facility] Start: 2006 Depression Screen Depression Screen [facility] C.trachomatis N.gonorrhoeae DNA C.trachomatis N.gonorrhoeae DNA Microbiology STAT 04/07/2024 11:12 AM EDT [facility] CBC W Auto Different ial panel - Blood CBC and differential Lab Routine Menorrhagia with regular cycle Ordered: 03/24/2025 [facility] Comment on above: Ordered: 03/24/2025 Cytology Cervical or vaginal smear or scraping study Pap Smear Pathology and Cytology Routine Well woman exam with routine gynecological exam Ordered: 04/13/2024 [facility] Work Phone: Comment on above: Ordered: 04/13/2024 Cytology Cervical or vaginal smear or scraping study Pap Smear Pathology and Cytology Routine Well woman exam with routine gynecological exam Ordered: 04/21/2025 [facility] Work Phone: Comment on above: Ordered: 04/21/2025 hCG, quantitative, hCG, quantitative, Lab Routine Menorrhagia with regular cycle Ordered: 03/24/2025 [facility] Comment on above: Ordered: 03/24/2025 Hemoglobin A1c/Hemoglobin.total in Blood Hemoglobin A1c Lab Routine Menorrhagia with regular cycle Ordered: 03/24/2025 [facility] Comment on above: Ordered: 03/24/2025 Human papilloma viru s DNA [Presence] in Unspecified specimen by Probe with amplification HPV DNA probe, amplified Microbiology Routine Well woman exam with routine gynecological exam Ordered: 04/21/2025 [facility] Comment on above: Ordered: 04/21/2025 Prothrombin time (PT ) in Blood by Coagulation assay Protime-INR Lab Routine Menorrhagia with regular cycle Ordered: 03/24/2025 [facility] Comment on above: Ordered: 03/24/2025 Thyrotropin [Units/volume] in Serum or Plasma TSH Lab Routine Menorrhagia with regular cycle Ordered: 03/24/2025 [facility] Comment on above: Ordered: 03/24/2025 Thyroxine (T4) free [Mass/volume] in Serum or Plasma T4, free Lab Routine Menorrhagia with regular cycle Ordered: 03/24/2025 [facility] Comment on above: Ordered: 03/24/2025 Immunizations Immunization Date Immunization Notes Care Provider [facility] 07-16-2019 tetanus toxoid, redu carl diphtheria toxoid, and acellular pertussis vaccine, adsorbed Pike SALAM [facility] 05-06-2012 hepatitis A vaccine, pediatric/adolescent dosage, 2 dose schedule Generic Provider [facility] 05-06-2012 hepatitis A vaccine, unspecified formulation Pike SALAM [facility] 05-06-2012 influenza virus vacc ine, live, attenuated, for intranasal use Generic Provider [facility] 05-06-2012 influenza virus vacc ine, unspecified formulation Migel Moriahmakayla STONE Work Phone: [facility] 11-23-2011 HPV, unspecified formulation Pike SALAM [facility] 11-23-2011 Human Papillomavirus 9-valent vaccine Generic Provider [facility] 05-23-2011 HPV, unspecified formulation Pike SALAM [facility] 05-23-2011 Human Papillomavirus 9-valent vaccine Generic Provider [facility] 12-14-2010 hepatitis A vaccine, pediatric/adolescent dosage, 2 dose schedule Bibiana Matias NP Work Phone: [facility] 12-14-2010 hepatitis A vaccine, unspecified formulation Pike SALAM [facility] 12-14-2010 HPV, unspecified formulation Pike SALAM [facility] 12-14-2010 Human Papillomavirus 9-valent vaccine Generic Provider [facility] 12-14-2010 meningococcal ACWY vaccine, unspecified formulation [employer] [facility] 12-14-2010 meningococcal polysaccharide (groups A, C, Y and W-135) diphtheria toxoid conjugate vaccine (MCV4P) Generic Provider [facility] 12-14-2010 varicella virus vaccine [employer] [facility] 08-22-2009 tetanus toxoid, redu carl diphtheria toxoid, and acellular pertussis vaccine, adsorbed [employer] [facility] 03-12-2000 diphtheria, tetanus toxoids and acellular pertussis vaccine Generic Provider [facility] 03-12-2000 diphtheria, tetanus toxoids and acellular pertussis vaccine, unspecified formulation Generic Provider [facility] 03-12-2000 DTaP, unspecified formulation [employer] [facility] 03-12-2000 measles, mumps and rubella virus vaccine Pike SALAM [facility] 03-12-2000 poliovirus vaccine, inactivated Generic Provider [facility] 03-12-2000 poliovirus vaccine, unspecified formulation [employer] [facility] 03-12-2000 varicella virus vaccine [employer] [facility] 02-11-1996 diphtheria, tetanus toxoids and pertussis vaccine Generic Provider [facility] 02-11-1996 measles, mumps and rubella virus vaccine Pike [employer] [facility] 06-11-1995 diphtheria, tetanus toxoids and pertussis vaccine Generic Provider [facility] 06-11-1995 haemophilus influenz ae type b vaccine, conjugate unspecified formulation Generic Provider [facility] 06-11-1995 haemophilus influenz ae type b vaccine, HbOC conjugate Generic Provider [facility] 06-11-1995 hepatitis B vaccine, pediatric or pediatric/adolescent dosage Pike SALAM [facility] 06-11-1995 Hib, unspecified formulation Pike SALAM [facility] 06-11-1995 trivalent poliovirus vaccine, live, oral Generic Provider [facility] 03-06-1995 diphtheria, tetanus toxoids and pertussis vaccine Generic Provider [facility] 03-06-1995 haemophilus influenz ae type b vaccine, conjugate unspecified formulation Generic Provider [facility] 03-06-1995 haemophilus influenz ae type b vaccine, HbOC conjugate Generic Provider [facility] 03-06-1995 Hib, unspecified formulation Pike SALAM [facility] 03-06-1995 trivalent poliovirus vaccine, live, oral Generic Provider [facility] 1994 diphtheria, tetanus toxoids and pertussis vaccine Generic Provider [facility] 1994 haemophilus influenz ae type b vaccine, conjugate unspecified formulation Generic Provider [facility] 1994 haemophilus influenz ae type b vaccine, HbOC conjugate Generic Provider [facility] 1994 hepatitis B vaccine, pediatric or pediatric/adolescent dosage Pike SALAM [facility] 1994 Hib, unspecified formulation Pike SALAM [facility] 1994 trivalent poliovirus vaccine, live, oral Generic Provider [facility] 1994 hepatitis B vaccine, pediatric or pediatric/adolescent dosage Pike SALAM [facility] Payers Date Payer Category Payer Private Health Insurance [facility] [id number] 2022 Unknown [id number] 1994 Unknown [id number] 2.16.840.1.818240.3.579. 2.593 1994 Unknown [id number] 2.16.840.1.347146.3.579. 2.593 1994 Unknown [id number] 2.16.840.1.384884.3.579. 2.593 1994 Unknown [id number] 2.16.840.1.886088.3.579. 2.593 1994 Unknown [id number] 2.16.840.1.217332.3.579. 2.593 1994 Unknown [id number] 2.16.840.1.098623.3.579. 2.593 1994 Unknown [id number] 2.16.840.1.056580.3.579. 2.593 1994 Unknown [id number] 2.16.840.1.374060.3.579. 2.593 1994 Unknown [id number] 2.16.840.1.262599.3.579. 2.727 1994 Unknown [id number] 2.16.840.1.155460.3.579. 2.173 1994 Unknown [id number] 2.16.840.1.171864.3.579. 2.1259 1994 Unknown [id number] 2.16.840.1.061235.3.579. 2.1259 1994 Unknown [id number] 2.16.840.1.069201.3.579. 2.1259 1994 Unknown [id number] 2.16.840.1.412387.3.579. 2.1259 1994 Unknown [id number] 2.16.840.1.938007.3.579. 2.1259 1994 Unknown [id number] 2.16.840.1.868591.3.579. 2.1259 1959 Unknown [id number] 2.16.840.1.075429.19 1959 Unknown [id number] Unknown [id number] Social History Date Type Detail Facility Unknown if ever smoked [employer] Other Start: 08-26-2023 End: 03-08-2025 Sex Assigned At [facility] Tobacco smoking status No Smokin g Status Entered [facility] Start: 01-01-2023 End: 05-07-2024 Tobacco smoking status [facility] Never smoked tobacco [facility] Start: 11-06-2022 [...] to any clubs or organizations such as buddhist groups, unions, fraternal or athletic groups, or [...] [OSQ] Very much [facility] (I/We) worried madhu er (my/our) food would run out before [...] beverage intake Current drinker of alcohol (finding) [employer] Start: 11-06-2022 Alcohol Comment occasional [facility] How often do you nee d to [...] medical care, and heating Hard [facility] Sex Female (finding) [facility] Start: 1995 Sex Assigned At Female [facility] Functional Status Date Assessment Result Facility 03-08-2025 Total score [AUDIT-C] 7 03/08/20 25 12:39 PM EDT Ngoc Martin [facility] 03-08-2025 How often to you hav e a drink containing alcohol? 2-3 times a week 03/08/2025 12:39 PM EDNishant Martin Generic 2-3 time sa week [facility] 03-08-[address] inks containing alcohol do you have on a typical day? 5 or 6 03/08/2025 12:39 PM EDT Mychart, Generic 5 or 6 [facility] 03-08-2025 How often do you hav e 6 or more drinks on 1 occasion? Monthly 03/08/2025 12:39 PM EDT Mychart, Generic Monthly [facility] Clinical Notes 05-10-2022 to 04-21-2025 Elisa Thao, SHAUN - 04/21/2025 3:30 PM Roldan Guaman LPN - 03/24/2025 11:30 AM Ronald Matias NP - 03/08/2025 6:07 PM Ronald Matias NP - 03/08/2025 6:07 PM EDTPatient Instructions Note Date & Type Note Facility 04-21-2025 History of Presen t illness Narrative Reason [...] nursing note reviewed. Exam conducted with a director of preclinical research present. Vitals: Estimated body mass index is 24.84 kg/m as calculated from the following: Height [...] of: REUBEN Bernal documented in this encounter [facility] 03-24-2025 History of Presen t illness Narrative [...] nursing note reviewed. Exam conducted with a director of preclinical research present. Vitals: Estimated body mass index is [...] Migel Major DO documented in this encounter [facility] 03-08-2025 History of Presen t illness Narrative [...] 20 MG tablet documented in this encounter [facility] 03-08-2025 Instructions Bibiana Matias NP - 03/08/2025 2:00 PM EDT Ondansartan for nausea Hydroxyzine as needed for anxiety, may make you groggy Restart viibryd documented in this encounter [facility] 06-03-2024 History of Presen t illness Narrative [...] fluids and labs documented in this encounter [facility] 06-03-2024 Instructions Bibiana Matias NP - 06/03/2024 5:30 PM EST Go to ER for evaluation for dehydration documented in this encounter [facility] 04-15-2024 History of Presen t illness Narrative Associated Problem(s): RB (rectal bleeding) Still occurring, no clear etiology. It was felt possibly related to mental health?? And stress At this point we discussed next step, her labs and CT scan no acute findings Will refer to GI for second opinion Associated Problem(s): Bipolar affective disorder, current episode manic (CMS/[facility]) Continue with psych for med [...] no NV, she went to ER at [facility]. See CT scan labs etc. Had colonoscopy [...] referral to Gastroenterology documented in this encounter [facility] 04-13-2024 History of Presen t illness Narrative [...] nursing note reviewed. Exam conducted with a director of preclinical research present. Vitals: Estimated body mass index is [...] of: REUBEN Bernal documented in this encounter [facility] 08-26-2023 History of Presen t illness Narrative [...] nursing note reviewed. Exam conducted with a director of preclinical research present. Vitals: Estimated body mass index is 24.27 kg/m as calculated from the following: Height as of 23: 5' 3 . Weight as of this [...] Migel Major DO documented in this encounter [facility] 05-10-2022 Evaluation note Encounter Date Diagnosis Assessment [...] treatment. Education handout given on gastro diet [employer] Other Evaluation + Plan note No data available for this section [facility] Evaluation note* Diagnosis Intrauterine device surveillance documented in this encounter [facility] HealthcareEvaluation note* Diagnosis Bipolar affective disorder, current episode manic, current episode severity unspecified (CMS/HCC)- Primary RB (rectal bleeding) Hemorrhage of rectum and anus RB (rectal bleeding)- Primary Hemorrhage of rectum and anus Bipolar affective disorder, current episode manic, current episode severity unspecified (CMS/HCC) Dehydration- Primary Nausea and vomiting, unspecified vomiting type Diarrhea, unspecified type documented in this encounter [facility] HealthcareEvaluation note* Diagnosis Well woman exam with routine gynecological exam Routine gynecological examination [facility] Diagnosis RB (rectal bleeding)- Primary Hemorrhage of rectum and anus Bipolar affective disorder, current episode manic, current episode severity unspecified ([facility]/HCC) documented in this encounter [facility] HealthcareEvaluation note* Diagnosis Abdominal pain, left lower quadrant- Primary [facility] Diagnosis Bipolar affective disorder, current episode [...] Anxiety state, unspecified documented in this encounter [facility] HealthcareEvaluation note* Diagnosis Bipolar affective disorder, current [...] with regular cycle documented in this encounter [facility] HealthcareEvaluation note* Diagnosis Onset Date Resolution Status Admit Date Anxiety acute March 11:02am Bipolar affective disorder, current episode manic acute April 13, 2025 11:02am [facility] Work Phone: Evaluation note* Diagnosis Bipolar affective disorder, current episode [...] unspecified vomiting type Anxiety Anxiety state, unspecified Well woman exam with routine gynecological exam Routine gynecological examination [facility] N[facility]ative - Reported* Type Description Date Medical History Recurrent UTI's Medical History Depression Surgical History oral surgery [employer] Other Hospital Discharge instructions No data available for this section [facility] Progress note No data available for this section [facility] Reason for referral (narrative)* Consultation (Routine) - Pending Review Specialty Diagnoses / Procedures Referred By Preet trejo Referred To Contact Gastroenterology Diagnoses RB (rectal bleeding) Procedures AR OFFICE/OUTPATIENT NEW HIGH MDM 60 MINUTES Bibiana Matias NP [address] [place] [address] Evelyn Desouza DO [address] [address] Referral ID Status Reason Start Date Expiration Date Visits Requested Visits Authorized [id number] Pending Review Specialty Services Required 04/15/2024 10/12/2024 1 1 ALBERT Wood for referral (narrative)No reason for referral information available[facility] Work Phone: Summary Purpose Family History No Family History Records FoundNo Family History Records FoundNo Family History Records FoundNo Family History Records Found Advance Directives Advance Directive Response Recorded Date/ Time Advance Directives No May 07, 2024 3:37pm Chief Complaint and Reason for Visit Chief Complaint Admit Date 1M April 13, 2025 11:02am Reason for Visit Admit Date Anxiety April 13, 2025 11:02am Bipolar affective disorder, current epis ode manic April 13, 2025 11:02am Additional Source Comments REASON FOR VISIT (unrecogniz [...] DATE CREATED AUTHOR AUTHOR'S ORGANIZ ATION 01/24/2023 [facility] DATE CREATED AUTHOR AUTHOR'S ORGANIZ ATION 04/13/2024 [facility] DATE CREATED AUTHOR AUTHOR'S ORGANIZ ATION 03/26/2025 [facility] Patient Care team informatio n (unrecognized section and content) [employer] Operator Relationship Specialty Start Date End Date Zac Jarquin MD PCP - General Family Medicine 02/12/23 Bibiana Matias NP [address] [place] [address] Referring Physician Nurse Practitioner 02/12/23 [employer] Relationship Specialty Start Date End Date Zac Jarquin MD [address] [place] [address] PCP - General Family Medicine 02/12/23 Bibiana Matias NP [address] [place] [address] Referring Physician Nurse Practitioner 02/12/23 [employer] Operator Relationship Specialty Start Date End Date Zac Jarquin MD [address] [place] [phone] PCP - General Family Medicine 02/12/23 Bibiana Matias NP [address] [place] [phone] Referring Physician Nurse Practitioner 02/12/23 [employer] Operator Relationship Specialty Start Date End Date Zac Jarquin MD [address] [place] [phone] PCP - General Family Medicine 02/12/23 Bibiana Matias NP [address] [place] [address] Referring Physician Nurse Practitioner 02/12/23 [employer] Operator Relationship Specialty Start Date End Date Zac Jarquin MD [address] [place] [address] PCP - General Family Medicine 02/12/23 Bibiana Matias NP [address] [place] [phone] Referring Physician Nurse Practitioner 02/12/23 [employer] Operator Relationship Specialty Start Date End Date Zac Jarquin MD [address] [place] [address] PCP - General Family Medicine 02/12/23 Bibiana Matias NP [address] [place] [phone] Referring Physician Nurse Practitioner 02/12/23 [employer] Operator Relationship Specialty Start Date End Date Zac Jarquin MD [address] [place] [address] PCP - General Family Medicine 02/12/23 Bibiana Matias NP [address] [place] [address] Referring Physician Nurse Practitioner 02/12/23 [employer] Operator Relationship Specialty Start Date End Date Zac Jarquin MD [address] [place] [address] PCP - General Family Medicine 02/12/23 Bibiana Matias NP [address] [place] [address] Referring Physician Nurse Practitioner 02/12/23 [employer] Operator Relationship Specialty Start Date End Date Bibiana Matias [employer] [address] [place] [address] PCP - General Nurse Practitioner 11/13/22 [employer] Relationship Specialty Start Date End Date Zac Jarquin MD [address] [place] [address] PCP - General Family Medicine 02/12/23 Bibiana Matias NP [address] [place] [address] Referring Physician Nurse Practitioner 02/12/23 [employer] Operator Relationship Specialty Start Date End Date Zac Jarquin MD [address] [place] [address] PCP - General Family Medicine 02/12/23 Bibiana Matias NP [address] [place] [address] Referring Physician Nurse Practitioner 02/12/23 [employer] Operator Relationship Specialty Start Date End Date Zac Jarquin MD [address] [place] [address] PCP - General Family Medicine 02/12/23 Bibiana Matias NP [address] [place] [phone] Referring Physician Nurse Practitioner 02/12/23 [employer] Operator Relationship Specialty Start Date End Date Zac Jarquin MD [address] [place] [phone] PCP - General Family Medicine 02/12/23 Bibiana Matias NP [address] [place] [address] Referring Physician Nurse Practitioner 02/12/23 [employer] Operator Relationship Specialty Start Date End Date Zac Jarquin MD [address] [place] [address] PCP - General Family Medicine 02/12/23 Bibiana Matias NP [address] [place] [phone] Referring Physician Nurse Practitioner 02/12/23 Team Status: Active Member Role Status Dates Bibiana Matias NP-C Primary Care Provider Active Team Status: Inactive Member Role Status Dates CLAUDIA Ernandez Primary Care Provider Active Start: April 13, 2025 End: April 13, 2025 CLAUDIA Ernandez Attending Provider Active Start: April 13, 2025 End: April 13, 2025 [employer] Operator Relationship Specialty Start Date End Date Zac Jarquin MD PCP - General Family Medicine 02/12/23 Bibiana Matias NP Referring Physician Nurse Practitioner 02/12/23 [employer] Operator Relationship Specialty Start Date End Date Zac Jarquin MD PCP - General Family Medicine 02/12/23 Bibiana Matias NP Referring Physician Nurse Practitioner 02/12/23 Scheduled Active [...] ordered. 0949 (Given - Provid er: Jessy Smith, CARLOS ALBERTO) ondansetron (ZOFRAN) injection 4 mg (COMPLETED) 4 mg, IntraVENous, ONCE, 1 dose, On Sat04/07/24 at 0900 0948 (Given - Provid er: Jessy Smith, CARLOS ALBERTO) PRN Medication Order 04/05/2024 04/06/2024 04/07/2024 iopamidol (ISOVUE-370) 76 % injection 75 mL (COMPLETED) 75 mL, IntraVENous, IMG ONCE PRN, 1 dose, Starting on Sat04/07/24 at 1156, Until Sat04/07/24 at 1208, Other 1208 (Given - Provid er: Snehal Rowe) Goals (unrecognized section and content) Goals may be documented in a n alternate section FOR RECORDS PERTAINING TO PATIENTS WHO ARE [...] BE BASED ON THE PRIMARY CLINICAL RECORDS. [employer] provides no warranty or guarantee of the accuracy or completeness of information in this document.
--- OUTSIDE RECORDS SUMMARY | 2025-04-21 20:01 | XMS_ITS | Clinical Summary ---
Author Organization [facility] Address [address] [place] [address] Care Team Providers Care Gas Jockey Name Role Phone Zac Jarquin MD Primary Care Provider [phone] Bibiana Matias NP Unavailable [phone] Allergies Active Allergy Reactions Criticality Noted Date Comments Nitrofurantoin GI intolerance 04/04/2023 Sulfamethoxazole-Trimethoprim Unknown 2022 Medications vilazodone (Viibryd) 20 MG tabletIndicatio ns:Bipolar affective disorder, current episode manic, current episode severity unspecified (HCC),Anxiety Start with 1/2 tablet daily for 7 days, then increase to 1 tablet 30 tablet 1 03/08/20 25 Active hydrOXYzine pamoate (Vistaril) 25 MG capsuleIndicati ons:Anxiety Take 1 capsule (25 mg) by mouth every 8 (eight) hours if needed for itching for up to 10 days 30 capsule 03/08/20 25 025 Discontinued Hospital, Clinic, or Other Facility Administered Medication Ordered Dose Route Frequency Start Date End Date Status Levonorgestrel intrauterine device 52 mgIndications:Encounter for IUD insertion 52 mg IU Continuous 07/01/2023 Active Active Problems Problem Noted Date Diagnosed Date Anxiety 03/08/2025 Assessment & Plan (03/08/2025 6:07 PM EDT): Restart viibryd Vomiting 06/03/2024 Assessment & Plan (03/08/2025 6:05 PM EDT): Likely secondary to anxiety Will order zofran Check labs to r/o elyte abnormals and CBC Assessment & Plan (06/03/2024 6:08 PM EST): [...] as well Dehydration 06/03/2024 Assessment & Plan (03/08/2025 6:06 PM EDT): Encourage to keep well hydrated Check labs Assessment & Plan (06/03/2024 6:10 PM EST): To ER for evaluation for possible fluids and labs Bipolar affective disorder, current episode charito c 10/14/2023 Assessment & Plan (03/08/2025 6:07 PM EDT): Restart emelyndorotad While pt was in the office, got a voicemail from her psych provider office to schedule appt She will do this We can do FMLA: 1-3 times per week for 1 day at a time Fu in 4 weeks Assessment & Plan (04/15/2024 5:39 PM EDT): [...] Encounters Date Type Department Care Team Description 04/21/2025 3:30 PM EDT Office Visit [facility] [address] [place], [place] [address] [address] Nessa Montaño PA Well woman exam with routine gynecological exam 04/21/2025 Bamboo flowsheet [facility] [address] [place] [address] Nessa Montaño PA 03/25/2025 3:00 PM EDT Ancillary Procedure [facility] [address] [place] [address] Breakthrough bleeding with IUD 03/24/2025 11:30 AM EDT Office Visit [facility] [address] [place] [address] Migel Major DO Pelvic pain in female; Breakthrough bleeding with IUD; Menorrhagia with regular cycle 03/24/2025 Clinisync Result Encounter NOMS External Department Unsolicited Provider, Generic External Data 03/24/2025 Bamboo flowsheet [facility] [address] [facility] [place] [address] Migel Major DO 03/08/2025 2:00 PM EDT Office Visit [facility] [address] [place] [address] Bibiana Matias NP Bipolar affective disorder, current episode manic, current episode severity unspecified (HCC) (Primary Dx); Dehydration; Nausea and vomiting, unspecified vomiting type; Anxiety 03/08/2025 Clinisync Result Encounter NOMS External Department Unsolicited BienvenidocaronciprianoBibiana fajardoSHAUN 03/08/2025 Bamboo flowsheet [facility] [address] [place] [address] Bibiana MatiasSHAUN 03/08/2025 Travel from Last 3 Months Immunizations [...] Never 03/08/2025 How often do you attend adventist or buddhist serv ices? Never 03/08/2025 Do you belong to any clubs o r organizations such as adventist groups, unions, fraternal or athletic groups, or [...] Recorded Patient Health Questionnaire-2 Score 2 10/14/2023 [facility] - Occupational Stress [...] place to sleep or slept in a [place] care facility (including now)? No 10/14/2023 Housing Stability Vital [...] time in the past 12 m [facility], were you homeless or living in a [place] health care facility (including now)? No 03/08/2025 Comments No Sex and Gender Information Value Date Recorded Sex Assigned at Not on file Legal Sex Female 7:26 PM EDT Gender Identity Not on file Sexual Orientation Not on file Last Filed Vital Signs Vital Sign Reading Time Taken Comments Blood Pressure 100/60 04/21/2025 3:52 PM EDT Pulse 78 03/08/2025 2:02 PM EDT Temperature 36.6 C (97.8 F) 03/08/2025 2:02 PM EDT Respiratory Rate 18 03/08/2025 2:02 PM EDT Oxygen Saturation 98% 03/08/2025 2:02 PM EDT Inhaled Oxygen Concentration - - Weight 63.6 kg (140 lb 4 oz) 04/21/2025 3:52 PM EDT Height 160 cm (5' 3 ) 06/03/2024 5:37 PM EST Body Mass Index 24.84 06/03/2024 5:37 PM EST Plan of Treatment Upcoming Encounters Date Type Department Care Team (Late st Contact Info) Description 04/27/2026 3:30 PM EDT Procedure Visit [facility] [address] [place] [id number] Nessa Montaño PA [address] [place] [address] Health Maintenance Due Date Last Done Comments HPV/Cotest 2024 Cervical Cancer Screening 04/13/2027 Pap Smear 04/13/2027 04/13/2024, 04/04/2023, 12/28 Influenza Vaccine Discontinued 05/06/2012 Procedures Procedure Name Priority Date/Time Associated Diagnosis Comments US PELVIS TRANSVAGINAL Routine 03/25/2025 3:38 PM EDT Breakthrough bleeding with IUD ALL THYROXINE (T4) FREE Routine 03/24/2025 12:44 PM EDT [facility] PREG QUANT HCG Routine 03/24/2025 12 :44 PM EDT ALL THYROID STIM HORMONE Routine 03/24/2025 12:44 PM EDT [facility] APTT Routine 03/24/2025 12:44 PM EDT [facility] PROTHROMBIN TIME INR W/O COUM Routine 03/24/2025 12:44 PM EDT MLR HEMOGLOBIN A1C Routine 03/24/2025 12 :44 PM EDT ALL CBC WITH AUTO DIFF Routine 03/24/2025 12:44 PM EDT POCT , URINE Routine 03/24/2025 11:54 AM EDT Pelvic pain in female ALL MAGNESIUM Routine 03/08/2025 3:16 PM EDT ALL BASIC METABOLIC PANEL Routine 03/08/2025 3:16 PM EDT ALL CBC WITH AUTO DIFF Routine 03/08/2025 3:16 PM EDT PAP SMEAR Routine 04/13/2024 12:00 AM EDT from Last 3 Months or Most Recently Relevant to Health Maintenance Results * US pelvis transvaginal (03/25/2025 3:38 PM EDT) Anatomical Region Laterality Modality Pelvis Ultrasound 03/25/2025 4:48 PM EDT Impressions 03/26/2025 6:57 AM EDT 1. Appropriately positioned intrauterine device. TRANSCRIBED BY: ELECTRONICALLY SIGNED BY: Nate Day MD Narrative 03/26/2025 6:57 AM EDT FINDINGS: Uterus 8.9 x 3.0 x 4.4 cm Endometrium 3 mm (IUD) Right Ovary 2.2 x 1.6 x 2.6 cm Left Ovary 2.6 x 1.7 x 1.2 cm The uterus is normal in size and orientation. No worrisome mass lesions are seen. Endometrium appears unremarkable. Appropriately positioned intrauterine device. No fluid is seen within the cul-de-sac. Both ovaries appear normal for this age. Procedure Note Nate Day MD - 03/26/2025 FINDINGS: Uterus 8.9 x 3.0 x 4.4 cm Endometrium 3 mm (IUD) Right Ovary 2.2 x 1.6 x 2.6 cm Left Ovary 2.6 x 1.7 x 1.2 cm The uterus is normal in size and orientation. No worrisome mass lesionsare seen. Endometrium appears unremarkable. Appropriately positionedintrauterine device. No fluid is seen within the cul-de-sac. Bothovaries appear normal for this age. IMPRESSION: 1. Appropriately positioned intrauterine device. TRANSCRIBED BY: ELECTRONICALLY SIGNED BY: Nate Day MD Migel Moriah DO IM US PROCEDURES Final Result * [facility] PREG QUANT HCG (03/24/2025 12:44 PM EDT) HCG QUANTITATIVE <1 mIU/mL [facility] Comment: 5-50 0.2-1 WEEK 50-500 1-2 WEEKS 100-5,000 2-3 WEEKS 500-10,000 3-4 WEEKS 1,000-50,000 4-5 WEEKS 10,000-100,000 5-6 WEEKS 15,000-200,000 6-8 WEEKS 10,000-100,000 2-3 MONTHS 03/24/2025 12:4 4 PM EDT 03/24/2025 12:49 PM EDT Narrative CLINISYNC - 03/24/2025 1:23 PM EDT Migel Moriah DO CLINISYNC Final Result [facility] * [facility] PROTHROMBIN TIME INR W/O COUM (03/24/2025 12:44 PM EDT) [facility] PROTHROMBIN TIME 10.9 9.0 - 11.6 sec TBH TBH INR 1.03 TBH Comment: DESIRED INR: 2.0-3.0 CONDITIONS NOT LISTED BELOW 2.5-3.5 FOR PROSTHETIC HEART VALVE REPLACEMENT 2.5-3.5 RECURRENT THROMBOSIS 03/24/2025 12:4 4 PM EDT 03/24/2025 12:49 PM EDT Narrative CLINISYNC - 03/24/2025 1:13 PM EDT Migel Moriah DO CLINISYNC Final Result [facility] * MLR HEMOGLOBIN A1C (03/24/2025 12:44 PM EDT) GLYCOHEMOGLOBIN A1C 4.9 4.5 - 6.2 % [facility] Comment: ADA RECOMMENDED LIMIT 4.0 - 6.0 ADA THERAPEUTIC TARGET < 7.0 ACTION SUGGESTED > 7.0 ESTIMATED AVERAGE GLUCOSE 94 mg/dL [facility] 03/24/2025 12:4 4 PM EDT 03/24/2025 12:49 PM EDT Narrative CLINISYNC - 03/24/2025 1:11 PM EDT Migel Moriah DO CLINISYNC Final Result [facility] * [facility] APTT (03/24/2025 12:44 PM EDT) [facility] PARTIAL THROMBOPLASTIN TIME 25.7 22.3 - 36.2 sec [facility] 03/24/2025 12:4 4 PM EDT 03/24/2025 12:49 PM EDT Narrative CLINISYNC - 03/24/2025 1:13 PM EDT EthosGenzio DO CLINISYNC Final Result Performing Organization Address [facility]/ZIP Co de Phone Number [facility] * ALL THYROXINE (T4) FREE (03/24/2025 12:44 PM EDT) [facility] FREE T4 1.00 0.76 - 1.46 ng/dL [facility] 03/24/2025 12:4 4 PM EDT 03/24/2025 12:49 PM EDT Narrative CLINISYNC - 03/24/2025 1:26 PM EDT Migeljason Harriso DO CLINISYNC Final Result Performing Organization Address [facility] Co de Phone Number [facility] * ALL THYROID STIM HORMONE (03/24/2025 12:44 PM EDT) Pathologist [facility] THYROID STIMULATING HORMONE 1.484 0.358 - 3.740 uIU/mL TB 03/24/2025 12:4 4 PM EDT 03/24/2025 12:49 PM EDT Narrative CLINISYNC - 03/24/2025 1:23 PM EDT Migel Major DO CLINISYNC Final Result CLINISYNC [facility] * (ABNORMAL) ALL CBC WITH AUTO DIFF (03/24/2025 12:44 PM EDT) Only the most recent of2 resultswithin the time period is included. [facility] TB WBC 6.1 4.0 - 11.0 10 3/uL TBH TBH RBC 4.79 4.20 - 5.40 10 6/uL TBH TBH HGB 15.3 12.0 - 16.0 g/dL TBH TBH HCT 44.0 36.0 - 48.0 % TBH TBH MCV 91.9 81.0 - 99.0 fL TBH TBH MCH 31.9 26.7 - 34.0 pg TBH TBH MCHC 34.8 29.9 - 35.2 g/dL TBH TBH RDW 12.1 11.0 - 15.0 % TBH TBH PLT 233 150 - 450 10 3/uL TBH TBH MPV 10.2 9.5 - 13.5 fL TBH NEUTROPHILS PERCENT AUTO 74.5 43.0 - 75.0 % TBH LYMPHOCYTES PERCENT AUTO 19.3(L) 20.5 - 60.0 % [facility] MONOCYTES PERCENT AUTO 4.1 1.7 - 12.0 % TBH TBH EO % 1.3 0.9 - 7.0 % [facility]H BASOPHILS PERCENT AUTO 0.5 0.2 - 2.0 % [facility]H IMMATURE GRANULOCYTES PCT AUTO 0.3 0.0 - 0.5 % TBH NEUTROPHILS ABSOLUTE AUTO 4.5 1.4 - 6.5 10 3/uL TBH LYMPHOCYTES ABSOLUTE AUTO 1.2 1.2 - 3.8 10 3/uL TBH MONOCYTES ABSOLUTE AUTO 0.3 0.3 - 0.8 10 3/uL TBH TBH EO # 0.1 0.0 - 0.7 10 3/uL TBH BASOPHILS ABSOLUTE AUTO 0.0 0.0 - 0.1 10 3/uL TBH IMMATURE GRANULOCYTES ABS AUTO 0.02 0.00 - 0.03 10 3/uL TBH 03/24/2025 12:4 4 PM EDT 03/24/2025 12:49 PM EDT Narrative CLINISYNC - 03/24/2025 12:57 PM EDT Migel Moriah DO CLINISYNC Final Result Performing Organization Address [facility] Co de Phone Number [facility] * POCT , urine manually resulted (03/24/2025 11:54 AM EDT) Preg Test, Ur Negative Negative Urine 03/24/2025 11:5 4 AM EDT [facility] Moriah DO POINT OF CARE TEST ENTER/EDIT OR DERABLES Final Result * ALL MAGNESIUM (03/08/2025 3:16 PM EDT) Pathologist [facility] MAGNESIUM 1.9 1.8 - 2.4 mg/dL TB 03/08/2025 3:16 PM EDT 03/08/2025 3:18 PM EDT Narrative CLINISYNC - 03/08/2025 3:31 PM EDT Bibiana Matias MEDICAL SAFETY DIRECTOR CLINISYNC Final Result Performing Organization Address [facility] de Phone Number [facility] * ALL BASIC METABOLIC PANEL (03/08/2025 3:16 PM EDT) SODIUM 137 136 - 145 mmol/L TBH POTASSIUM 3.8 3.5 - 5.1 mmol/L TBH CHLORIDE 100 98 - 107 mmol/L TBH CARBON DIOXIDE 30.1 21.0 - 32.0 mmol/L TBH ANION GAP 10.7 TBH GLUCOSE 84 74 - 106 mg/dL TBH BLOOD UREA NITROGEN 10.0 7.0 - 18.0 mg/dL TBH CREATININE 0.82 0.55 - 1.02 mg/dL TBH TBH EGFR-AF SYRIAN >60 >=60 mL/min/1.7 3m 2 TBH TBH EGFR-NON AF SYRIAN >60 >=60 mL/min/1.7 3m 2 TBH BUN CREATININE RATIO 12.2 TBH CALCIUM 9.6 8.5 - 10.1 mg/dL TBH 03/08/2025 3:16 PM EDT 03/08/2025 3:18 PM EDT Narrative CLINISYNC - 03/08/2025 3:31 PM EDT us Bibiana Matias NP CLINISYNC Final Result CLINISYNC [facility] * Pap Smear (04/13/2024 12:00 AM EDT) Swab Cervical swab / Unknown us Nessa [facility] CYTOLOGY ORDERABLES Final Re sult EXTERNAL LAB from Last 3 Months or Most Recently Relevant to Health Maintenance Insurance [employer] Care Teams Gas Jockey Relationship Specialty Start Date End Date Zac Jarquin MD PCP - General Family Medicine 02/12/23 Bibiana Matias NP Referring Physician Nurse Practitioner 02/12/23
--- OUTSIDE RECORDS SUMMARY | 2025-04-21 20:01 | XMS_ITS | Encounter Summary ---
Author Organization [facility] Address [address] [place] [address] Care Team Providers Care Aquatic Ecologist Name Role Phone Zac Jarquin MD Primary Care Provider [phone] Bibiana Matias NP Unavailable [phone] Encounter Details Date Type Department Care Team (Late st Contact Info) Description 04/21/2025 Bamboo flowsheet [facility] [address] [place] [address] Nessa Montaño PA [address] [facility] [facility] [facility] [address] [place], [facility]11 Social History Tobacco Use Types Packs/Day [...] Never 03/08/2025 How often do you attend roman catholic or pentecostalism serv ices? Never 03/08/2025 Do you belong to any clubs o r organizations such as roman catholic groups, unions, fraternal or athletic groups, or [...] Recorded Patient Health Questionnaire-2 Score 2 10/14/2023 [facility] ional Health - Occupational [...] place to sleep or slept in a skilled nursing (including now)? No 10/14/2023 Housing Stability Vital Sign Answer Garrett e Recorded In the last 12 months, was t here a time when you were not able to pay the mortgage or rent on time? Yes 03/08/2025 In the past 12 months, how m any times have you moved where you were living? 1 03/08/2025 At any time in the past 12 m [facility], were you homeless or living in a skilled nursing (including now)? No 03/08/2025 Comments No Sex and Gender Information Value Date Recorded Sex Assigned at Not on file Legal Sex Female 7:26 PM EDT Gender Identity Not on file Sexual Orientation Not on file documented as of this encounter Plan of Treatment Upcoming Encounters Date Type Department Care Team (Late st Contact Info) Description 04/27/2026 3:30 PM EDT Procedure Visit [facility] [address] [place] [address] Nessa Montaño PA [address] [facility] [facility] [place] [address] documented as of this encounter Visit Diagnoses Not on filedocumented in this encounter Care Teams Aquatic Ecologist Relationship Specialty Start Date End Date Zac Jarquin MD PCP - General Family Medicine 02/12/23 Bibiana Matias NP Referring Physician Nurse Practitioner 02/12/23 documented as of this encounter
--- OUTSIDE RECORDS SUMMARY | 2025-04-21 20:01 | XMS_ITS | Encounter Summary ---
Author Organization [facility] Address [address] [facility] [place] [address] Care Team Providers Care Health Associate Name Role Phone Zac Jarquin MD Primary Care Provider [phone] Bibiana Matias NP Unavailable [phone] Encounter Details Date Type Department Care Team (Late Contact Info) Description 04/03/2023 Abstract [facility] [address] [facility] [address] [place] [address] Nessa Montaño PA [address] [place] [address] Dr [place], [facility]11 Social History Tobacco Use Types Packs/Day Years [...] Encounters Date Type Department Care Team (Late Contact Info) Description 04/27/2026 3:30 PM EDT Procedure Visit [facility]ERT [facility] [address] [facility] [address] [place] [address] Nessa Montaño PA [address] [place] [address] [place] [address] documented as of this encounter Visit Diagnoses Not on filedocumented in this encounter Care Teams Health Associate Relationship Specialty Start Date End Date Zac Jarquin MD PCP - General Family Medicine 02/12/23 Bibiana Matias NP Referring Physician Nurse Practitioner 02/12/23 documented as of this encounter
--- OUTSIDE RECORDS SUMMARY | 2025-04-21 20:01 | XMS_ITS | Patient Health Record ---
Author Organization [facility] Address [address] [place] [address] Care Team Providers Care Web Search Evaluator Name Role Phone Christi Pemberton Primary Care Provider [phone] Steve Crowder Unavailable [phone] Allergies Allergen (clinical drug ingredient) Drug/Non Drug Allergy documented on EMR Reaction Allergy Type Onset Date Status sulfamethoxazole / trimethoprim Bactrim Unknown Drug Allergy Active Reason For Referral No Information Medications Medication SIG (Take, Route, Frequency, Duration) Notes Start Date End Date Status Vilazodone HCl 10 MG 1 tablet with food Orally Once a day; Duration: 30 days Take with 20 mg tablet for 30 mg total 04/16/2024 Not-Taking Propranolol HCl 40 MG 1 tablet Orally twice a day (bid) as needed (prn); Duration: 30 day(s) 05/27/2023 Not-Taking Sertraline HCl 50 MG 1 tablet Orally Once a day Not-Taking Jolessa 0.15-0.03 MG 1 tablet Orally Once a day Not-Taking QUEtiapine Fumarate 25 MG 1 tablet at bedtime Orally Once a day; Duration: 30 day(s) 07/16/2023 Not-Taking hydrOXYzine Pamoate 25 MG 1 capsule Orally three times a day (tid) as needed (prn); Duration: 30 days 05/27/2023 Not-Taking Lurasidone HCl 60 MG 1 tablet in the evening with food Orally Once a day; Duration: 30 days 05/27/2023 Not-Taking Ondansetron 4 MG Oral; Duration: 7 Days Active Vilazodone HCl 20 MG Oral; Duration: 30 Days Active hydrOXYzine Pamoate 25 MG Oral; Duration: 10 Days Active Vilazodone HCl 20 MG 1 tablet with food Orally Once a day; Duration: 30 days 01/21/2024 Not-Taking Social History Tobacco Use: Social History [...] Problem Bipolar affective disorder, currently manic, mild (523874208) Bipolar affective disorder, currently manic, mild (F31.11) Active confirmed Vital Signs Heart Rate 70 /min 03/09/2025 Temperature 97.4 degrees Fahrenheit 05/25/2024 Blood pressure diastolic 73 mm Hg 03/09/2025 Oximetry 98 % 03/09/2025 Height 63 in 03/09/2025 Blood pressure systolic 109 mm Hg 03/09/2025 Weight 137 lbs 03/09/2025 BMI 24.27 kg/m2 03/09/2025 Encounters Encounter Location Date Provider Diagnosis [facility] [address] [place] [address] 04/13/2025 Christi Pemberton [facility] [address] [place] [address] 05/08/2024 Kip Soviak Bipolar affective disorder, currently manic, mild F31.11 [facility] [address] [place] [address] 05/12/2024 Kip Soviak Bipolar affective disorder, currently manic, mild F31.11 [facility] [address] [facility] [place] [address] 04/13/2025 Christi Pemberton [facility] [address] [place] [address] 03/09/2025 Christi Pemberton Bipolar affective disorder, currently manic, mild F31.11 [facility] [address] [place] [address] 08/24/2024 Eddie Soviak Bipolar affective disorder, currently manic, mild F31.11 [facility] [address] [place] [address] 05/25/2024 Ki Soviak Bipolar affective disorder, currently manic, mild F31.11 Assessments Encounter Date Diagnosis (ICD Code) Assessment Notes Treatment Notes Treatment Clinical Notes Section Notes 08/24/2024 Bipolar affective disorder, currently manic, mild [...] Coverage End Date [employer] [address] [address] [place] [address] [id number] PRATIK CORONEL Self - patient is the insured 3 Medical (General) History Medical History History ICD Code anxiety
--- OUTSIDE RECORDS SUMMARY | 2025-04-21 20:01 | XMS_ITS | Encounter Summary ---
Author Organization [facility] Address [address] [facility] [facility] [place] [address] Care Team Providers Care Record Press Operator Name Role Phone Zac Jarquin MD Primary Care Provider [phone] Bibiana Matias NP Unavailable [phone] Encounter Details Date Type Department Care Team (Late st Contact Info) Description 01/01/2023 Abstract [facility] [address] [place] [address] Migel Major DO [address] [place], [place] [address] Social History Tobacco Use Types Packs/Day Years [...] PM EDT Procedure Visit [facility]ERT ARREG[facility] [address] [place] [address] Nessa Montaño PA [address] [place], [facility]11 documented as of this encounter Visit Diagnoses Not on filedocumented in this encounter Care Teams Record Press Operator Relationship Specialty Start Date End Date Zac Jarquin MD PCP - General Family Medicine 02/12/23 Bibiana Matias NP Referring Physician Nurse Practitioner 02/12/23 documented as of this encounter
--- OUTSIDE RECORDS SUMMARY | 2025-04-21 20:01 | XMS_ITS | Clinical Summary ---
Author Organization [facility] Address [address], [address] [place] [address] Care Team Providers Care Mixer And Blender Name Role Phone Bibiana Matias APRN, NP [...] Hepatitis C screen 2012 Pap smear 10/12/2015 Cervical cancer screen 2024 HPV (without or with Pap) 2024 Flu vaccine (#1) 02/26/2025 05/06/2012 COVID-19 Vaccine ( season) 2025 DTaP/Tdap/Td vaccine (8 - Td or Tdap) [...] patient's age to complete this topic Insurance [facility] Care Teams Mixer And Blender Relationship Specialty Start Date End Date Bibiana Matias, BINDERY MACHINE OPERATOR - MANAGEMENT INFORMATION SYSTEMS DIRECTOR [address] [place] [address] PCP - General Nurse Practitioner 11/13/22
[2025-04-29 15:09] LABS: Age Gdln ACOG Testing Note (.); IGP, Aptima HPV, rfx 16/18,45 Note (.)
== END 2025-04-21 19:59 | disposition home or self-care (01) ==
LOC: LAB 19:58
PROVIDERS: PCP Nurse Practitioner; Visit Provider Physician Assistant
DX: Z01.419 Encounter for gynecological examination (general) (routine) without abnormal findings (principal)
CPT/HCPCS: 87624; 88175